=== PATIENT | female | born 1960 | race African-American/Black ===

== ENCOUNTER 2024-08-04 08:01 | Emergency (ER) | payer MEDICARE, MEDICAID, SELFPAY ==
[2024-08-04 08:17] VITALS: BP 139/83; PULSE 67; RESP 18; TEMP 36.8; O2SAT 97; BMI 27.8
[2024-08-04] MEDS: Acetaminophen 325 MG TABLET 975 MG PO (08:28)
--- NOTE | 2024-08-04 09:19 | ED.GENADULT ---
HPI - General Adult General Chief complaint: Upper Respiratory Symptoms Stated complaint: headache, throat pain Time Seen by Provider: 08/04/24 08:54 Source: patient and RN notes reviewed Mode of arrival: ambulatory Limitations: no limitations History of Present Illness ED Provider: Latricia Devi PA-C [facility] narrative: This is a 63-year-old female, with a history of hypertension, who presents emergency department with complaints of headaches, productive cough with yellow-colored sputum, sore throat for the last 2 months. Patient states that she has been using vgbi-ptv-hvpvnat Tylenol which has provided her with minimal relief. She called her primary care physician who is unable to see her until January. She also states that she takes amlodipine 5 mg as well as hydrochlorothiazide/lisinopril for her hypertension, and states that she is running low on her amlodipine. She denies any fevers, chills, chest pain, shortness of breath, abdominal pain, nausea, vomiting or diarrhea. Denies history of COPD. She is a nonsmoker. No other complaints or concerns at this time. MD complaint: Cough Onset (ago): month(s) Relieving factors: none Exacerbating factors: none Associated symptoms: denies other symptoms Treatments prior to arrival: none Related Data Previous Rx's ?Medication ?Instructions ?Recorded amlodipine 5 mg tablet 5 mg PO DAILY 30 days #30 tabs 08/04/24 azithromycin 250 mg tablet See Rx Instructions PO .COMPLEX #6 08/04/24 tabs Allergies Allergy/AdvReac Type Severity Reaction Status Date / Time No Known Allergies Allergy Unverified 08/04/24 08:19 Review of Systems Review of Systems: Yes all other systems are reviewed and are negative Constitutional: Constitutional: Reports as per [facility] Past Medical History Attestation statement: The following information was validated with the patient. Social History Social History Advance Directives: No Advance Directives Information Provided: No Physical Exam ED Vital Signs: Vital Signs - 24 hr 08/04/24 08:17 Temperature 98.2 F Pulse Rate 67 Respiratory Rate 18 Blood Pressure 139/83 Pulse Oximetry 97 Oxygen Delivery Method Room Air BMI result Body Mass Index 27.8 Const General: cooperative, comfortable and no acute distress Orientation/consciousness: patient oriented x3 Limitations: no limitations HENMT Head: Yes normal to inspection, Yes normocephalic and Yes atraumatic Ears: hearing grossly normal bilaterally General nose exam: Normal external nose present Face and sinus: Yes normal facial exam Mouth: Normal oral and palatal mucosa present, oropharynx normal and moist mucous membranes Throat: Yes posterior oropharynx normal Eyes General: appearance normal, both eyes and all related structures Eyelids: Yes eyelids normal Conjunctivae: conjunctivae normal Sclerae: sclerae normal Pupils: Equal, round and reactive pupils present EOM: EOMs intact bilaterally Neck Neck: Yes normal visual inspection, Yes full ROM and Yes no lymphadenopathy Lymphatic: no lymphadenopathy noted Chest Chest palpation & inspection: normal inspection of the chest Resp Effort & Inspection: normal respiratory effort and able to speak in complete sentences Auscultation: clear to auscultation bilaterally, no crackles, no rales, no rhonchi and no wheezes Cardio Rate: regular rate Rhythm: regular rhythm Heart sounds: S1 normal heart sound present and S2 normal heart sound present GI Inspection: Yes normal to inspection Skin General skin exam: no rashes or lesions noted Trauma: no lacerations or abrasions Wounds: no wounds Neuro General: patient oriented x3 and moves all extremities Cranial nerves: Yes Equal, round and reactive pupils present Extrem General: Yes normal to inspection Right upper extremity: normal to inspection Left upper extremity: normal to inspection Right lower extremity: normal to inspection Left lower extremity: normal to inspection Medications Administered Discontinued Medications Generic Name Dose Route Start Last Admin Trade Name Freq PRN Reason Stop Dose Admin Acetaminophen 975 mg 08/04/24 08:25 08/04/24 08:28 Acetaminophen 325 Mg Tablet PO 08/04/24 08:26 975 mg ONCE ONE Administration Medical Decision Making Medical Decision Making [facility] Narrative: This is a 63-year-old Frisian-speaking female who presents emergency department with complaints of productive cough with yellow-colored sputum, sore throat, headaches for the last 2 months. On arrival, vital signs within normal limits. She is nontoxic appearing speaking full sentences. She states that she has been taking paln-lnb-lhflgvd medications without any relief. She was contacted her primary care office and they are unable to see her until January. Differential diagnoses include bronchitis, URI, acute sinusitis, rhinosinusitis, allergic rhinitis. Been patient's symptoms have been ongoing for 2 months without any antibiotics, will trial antibiotics. Given strict return precautions. She understands and agrees with plan. Patient stable for discharge. Differential Diagnosis Differential Diagnoses: The differential diagnosis associated with the presentation includes See above Discharge Plan Discharge Clinical Impression: Upper respiratory infection, Medicine refill Patient Disposition: Home, Self-Care Instructions: Upper Respiratory Infection (ED) Additional Instructions: Take your antibiotic as prescribed until it is complete. Even if your symptoms start to resolve, you must complete the antibiotic course. Call to establish and follow up with a primary care provider. If you already have a primary care provider, please follow up with them. Llame para establecer y hacer un seguimiento con un proveedor de atenci?n primaria. Si ya tiene un proveedor de atenci?n primaria, golden un seguimiento con ?l. [place] el antibi?efrain seg?n lo prescrito hasta completarlo. Aunque los s?ntomas empiecen a mejorar, debe completar el tratamiento antibi?efrain. Prescriptions: New azithromycin 250 mg tablet See Rx Instructions .ROUTE .COMPLEX Qty: 6 0RF Rx Instructions: For 250 mg dose pack: take 500 mg today (day 1), then 250 mg for 4 days (days 2-5) amlodipine 5 mg tablet 5 mg PO DAILY 30 Days Qty: 30 0RF Print Language: Frisian
[2024-08-04 10:11] VITALS: BP 139/83; PULSE 67; RESP 18; TEMP 36.8; O2SAT 97
[2024-08-04 10:13] LABS: Influenza A PCR NEGATIVE (Negative); Influenza B PCR NEGATIVE (Negative); Resp Syncy Virus RNA Qual PCR NEGATIVE (Negative); SARS COV2 PCR INHOUSE NEGATIVE (Negative)
== END 2024-08-04 10:12 | disposition home or self-care (01) ==
PROVIDERS: Physician Assistant Medical; Emergency Provider Emergency Medicine; PCP Internal Medicine
DX: J06.9 Acute upper respiratory infection, unspecified (principal); J02.9 Acute pharyngitis, unspecified; Z03.818 Encounter for observation for suspected exposure to other biological agents ruled out; R05.9 Cough, unspecified; Z76.0 Encounter for issue of repeat prescription; I10 Essential (primary) hypertension
CPT/HCPCS: 0241U; 99283; 99284

== ENCOUNTER 2024-09-09 09:20 | Emergency (ER) | payer MEDICARE, SELFPAY ==
--- NOTE | ~2024-09-09 | XR_ITS ---
EXAMINATION: XR CHEST CLINICAL INFORMATION: Cough for 3 weeks COMPARISON: None available. TECHNIQUE: 2 views of the chest were obtained. FINDINGS: The lungs are symmetrically adequately expanded. A smooth opacity noted in the right paracardiac region at the lung bases on the PA view is felt to represent prominent paracardiac fat pad. Somewhat similar finding is seen on the previous x-rays of 2019. Otherwise there is no evidence of focal consolidation. No evidence of pulmonary edema, pleural effusions or pneumothorax. Regional skeleton is intact. Multilevel mild degenerative changes in the spine. Visualized upper abdomen is unremarkable. XR/XR chest 2V IMPRESSION: No convincing radiographic evidence of pneumonia. No acute pulmonary process. Electronically signed by: Artie Mark MD 09/09/2024 10:03 AM EDT RP
[2024-09-09 09:29] VITALS: BP 136/80; PULSE 72; RESP 18; TEMP 36.5; O2SAT 99; BMI 27.8
--- NOTE | 2024-09-09 09:47 | ED.URI ---
HPI - URI/Sore Throat General Chief Complaint: Upper Respiratory Symptoms Stated Complaint: sbcrn-kjowfswo-isnoaygf-urinary problems Time Seen by Provider: 09/09/24 09:37 Source: patient Mode of arrival: ambulatory Limitations: no limitations History of Present Illness HPI Narrative: Patient is a 64-year-old female who presents emergency department for evaluation, she reports over the past 3 weeks she has been experiencing an intermittently productive cough with yellow phlegm, body aches, intermittent headache that alleviates with Tylenol varying location. She denies fevers, chills, dizziness, lightheadedness, neck pain, neck stiffness, chest pain, shortness of breath, difficulty breathing, nausea, vomiting, abdominal pain, sore throat, numbness or tingling of the extremities. She also expresses concern that her urine is darker than usual without dysuria, frequency/urgency/hesitancy. When asked she states that she is consuming plenty of water, on further evaluation it seems she is primarily drinking tea's. Additionally, she states that she recently moved here from [facility] ago a few months back, she is waiting to establish care with a new primary care doctor appointment has been scheduled for January of 2025, she has 2 tablets left of each individual antihypertensive medication and is requesting a refill; amlodipine 5 mg 1 tablet daily, and lisinopril-HCTZ 20-25 mg 1 tablet daily. Related Data Previous Rx's ?Medication ?Instructions ?Recorded amlodipine 5 mg tablet 5 mg PO DAILY 30 days #30 tabs 08/04/24 azithromycin 250 mg tablet See Rx Instructions PO .COMPLEX #6 08/04/24 tabs amlodipine 5 mg tablet 5 mg PO DAILY #90 tabs 09/09/24 guaifenesin 200 mg/5 mL oral liquid 400 mg (10 mL) PO Q6H PRN cough 09/09/24 #118 mL lisinopril 20 1 tab PO DAILY #90 tabs 09/09/24 mg-hydrochlorothiazide 25 mg tablet Allergies Allergy/AdvReac Type Severity Reaction Status Date / Time No Known Allergies Allergy Verified 09/09/24 09:31 Review of Systems Review of Systems: Yes all other systems are reviewed and are negative PMFSH Past Medical History Attestation statement: The following information was validated with the patient. Source: old records reviewed Social History Social History Advance Directives: No Advance Directives Information Provided: Yes Do you have a plan to hurt others: No Plan Physical Exam Vital Signs: Vital Signs: Last Vital Signs Temp 97.7 F 09/09/24 09:29 Pulse 72 09/09/24 09:29 Resp 18 09/09/24 09:29 BP 136/80 09/09/24 09:29 Pulse Ox 99 09/09/24 09:29 O2 Del Method Room Air 09/09/24 09:29 BMI result Body Mass Index 27.8 Appearance: Alert.?Oriented to person, place and time. No acute distress.?Normal affect. Eyes: Pupils equal, round and reactive to light.? ENT: TM normal bilaterally. Pharynx normal.?? Neck: Normal inspection.? Neck supple.??No cervical adenopathy CVS: Heart sounds normal. Normal heart rate and rhythm.? Pulses normal.?? Respiratory: No respiratory distress.? Lung sounds clear to auscultation bilaterally?? Abdomen: Soft and non-tender. Normoactive bowel sounds. Skin: Skin warm and dry.? Normal skin color.? ? Extremities: No lower extremity edema.? Neuro: Moves all extremities spontaneously. Sensation intact bilaterally. No motor deficits. Ambulates with normal steady gait. Medical Decision Making Medical Decision Making MDM Narrative: Patient is a 64-year-old female with past medical history of hypertension, presenting for evaluation of upper respiratory symptoms and requesting medication refill. COVID-19/influenza testing negative. RSV testing is positive. Chest x-ray was obtained to evaluate for possible pneumonia, no evidence of consolidation or infiltrate. At this time history and physical exam not consistent with ACS she is not experiencing any chest pain, has no shortness of breath, unlikely pulmonary embolism, no evidence of DVT on examination and no personal history of VTE. Well-appearing, nontoxic, afebrile, no tachycardia or tachypnea/hypoxia. Speaking clear full sentences, ambulatory with steady gait. Symptoms at this time appear most consistent with bronchitis secondary to RSV. Discussed conservative treatment including rest, hydration, Tylenol/ibuprofen as needed for fever and body aches, saline nasal spray, humidifier, wrss-ndd-iaxzohv cold medication. She expressed personal concern for dark yellow appearing urine without infectious type of symptoms, I suspect this is due to dehydration and lack of free water intake, strongly about having urine checked for infection, not consistent with UTI. Advised to follow-up with primary care provider as needed, discussed reasons to return back to the emergency department. All questions were answered. Patient discharged home in stable condition. Regarding her hypertension, her blood pressure is well maintained today 136/80, I have sent prescription refills to her pharmacy Differential Diagnosis Differential Diagnoses: The differential diagnosis associated with the presentation includes ( See narrative above) Admission/Observation Consideration of admission/observation: Escalation of care including admission/observation considered ( see narrative above) Lab Data MDM Lab Attestation statement: I reviewed the patient's lab results. ( see narrative above) Labs: Lab Results 09/09/24 09/09/24 Range/Units 09:52 11:29 Urine Color Yellow Urine Appearance Clear Urine pH 7.0 (5.0-9.0) Ur Specific [place] 1.010 (1.005-1.025) Urine Protein Negative (Neg-Trace) mg/dL Urine Glucose (UA) Negative (Negative) mg/dL Urine Ketones Negative (Negative) mg/dL Urine Blood Negative (Negative) Urine Nitrite Negative (Negative) Ur Leukocyte Esterase Negative (Negative) Influenza Type A (PCR) NEGATIVE (Negative) Influenza Type B (PCR) NEGATIVE (Negative) RSV RNA Qual (PCR) POSITIVE A (Negative) SARS-CoV-2 RNA (RT-PCR) NEGATIVE (Negative) Independent Interpretation I performed an independent interpretation of an: Plain X-Ray (See narrative above) Radiology Impression Discussion of test interpretation with radiology: I have reviewed the radiologist's reading. Radiologist Impression: XR/XR chest 2V IMPRESSION: No convincing radiographic evidence of pneumonia. No acute pulmonary process. Prescription Management I considered prescription management with: Pain Medication ( acetaminophen/ibuprofen) and Other (See narrative above) Chronic Conditions Patient?s care impacted by: Hypertension Discharge Plan Discharge Clinical Impression: Respiratory syncytial virus (RSV), Hypertension Patient Disposition: Home, Self-Care Instructions: Upper Respiratory Infection (ED), Hypertension (ED) Additional Instructions: RSV is a common respiratory viruses that causes mild, cold-like symptoms. Typically symptoms resolve in 1-2 weeks. Be sure to get plenty of rest, stay well hydrated drinking plenty of fluids, eat small frequent meals. Alternating between Tylenol/ibuprofen can be used as needed for fever/pain. Saline nasal spray, humidifier may be helpful for nasal congestion. Most people are usually contagious for 3-8 days, however in some infants they may continue to spread the virus even after having symptoms for as long as 4 weeks. You may return to the emergency department with any new or worsening symptoms or concerns, be sure to monitor for shortness of breath, or difficulty breathing as discussed. Follow-up with your primary care provider as needed. Prescriptions: New amlodipine 5 mg tablet 5 mg PO DAILY Qty: 90 0RF lisinopril-hydrochlorothiazide 20-25 mg tablet 1 tab PO DAILY Qty: 90 0RF guaifenesin 200 mg/5 mL liquid 400 mg PO Q6H PRN (Reason: cough) Qty: 118 0RF No Action azithromycin 250 mg tablet See Rx Instructions .ROUTE .COMPLEX Qty: 6 0RF Rx Instructions: For 250 mg dose pack: take 500 mg today (day 1), then 250 mg for 4 days (days 2-5) amlodipine 5 mg tablet 5 mg PO DAILY 30 Days Qty: 30 0RF Referrals: Physician,Unknown J [Primary Care Provider] - Print Language: [place] Verdean
[2024-09-09 10:50] LABS: Influenza A PCR NEGATIVE (Negative); Influenza B PCR NEGATIVE (Negative); Resp Syncy Virus RNA Qual PCR POSITIVE (Negative); SARS COV2 PCR INHOUSE NEGATIVE (Negative)
[2024-09-09 11:38] LABS: Appearance Urine Clear; Color Urine Yellow; Glucose Urine UA Negative (Negative); Leukocyte Esterase Urine Negative (Negative); Nitrite Urine Negative (Negative); Urine Blood Negative (Negative); Urine Ketones Negative (Negative); Urine Protein Negative (Neg-Trace)
[2024-09-09 12:00] VITALS: BP 138/86; PULSE 53; RESP 18; TEMP 36.4; O2SAT 98
[2024-09-09 12:01] VITALS: BP 138/86; PULSE 53; RESP 18; TEMP 36.4; O2SAT 98
== END 2024-09-09 12:01 | disposition home or self-care (01) ==
PROVIDERS: Nurse Practitioner Family; Emergency Provider Emergency Medicine
DX: J22 Unspecified acute lower respiratory infection (principal); R05.9 Cough, unspecified; I10 Essential (primary) hypertension; M79.10 Myalgia, unspecified site; Z03.818 Encounter for observation for suspected exposure to other biological agents ruled out
CPT/HCPCS: 0241U; 71046; 81003; 99283

== ENCOUNTER 2024-10-16 06:03 | Emergency (ER) | payer MEDICARE, MEDICAID, SELFPAY ==
--- NOTE | 2024-10-16 | ECG_ITS ---
Test Reason : DIZZINESS Blood Pressure : / mmHG Vent. Rate : 072 BPM Atrial Rate : 072 BPM P-R Int : 132 ms QRS Dur : 070 ms QT Int : 386 ms P-R-T Axes : 022 -29 037 degrees QTc Int : 422 ms Normal sinus rhythm Low voltage QRS Cannot rule out Anterior infarct , age undetermined Abnormal ECG When compared to the previous EKG of No significant changes seen Referred By: Generic ED Physician Electronically Signed By:Brenden Loco
[2024-10-16 06:11] VITALS: BP 142/84; PULSE 84; RESP 18; TEMP 36.4; O2SAT 98; BMI 27.3
[2024-10-16 06:48] LABS: MANUAL DIFF FLAG NO
[2024-10-16 06:49] LABS: Basophils Absolute Auto 0.1 X10*3/uL (0.0-0.2); Basophils Percent Auto 0.7 % (0-2); Eosinophils Absolute Auto 0.4 X10*3/uL (0.0-0.4); Hematocrit 42.2 % (37.0-47.0); Hemoglobin 14.3 g/dl (12.0-16.0); Imm Gran Abs Auto 0.02 X10*3/uL (0.00-0.03); Imm Gran Pct Auto 0.3 % (0.0-0.4); Lymphocytes Absolute Auto 2.1 X10*3/uL (1.2-4.9); Lymphocytes Percent Auto 31.4 % (20-40); Mean Corpuscular HGB Conc 33.9 g/dl (31.0-35.0); Mean Corpuscular Volume 88.5 fL (80.0-98.0); Mean Platelet Volume 10.5 fL (9.4-12.3); Monocytes Absolute Auto 0.6 X10*3/uL (0.1-1.2); Monocytes Percent Auto 9.3 % (2-11); Neutrophils Absolute Auto 3.5 x10*3/uL (2.0-8.3); Neutrophils Percent Auto 52.3 % (45-73); Platelet Count 182 X10*3/uL (160-400); Red Blood Count 4.77 X10*6/uL (4.20-5.50); Red Cell Distribution Width 12.9 % (11.0-16.0); White Blood Count 6.7 X10*3/uL (4.8-10.8)
[2024-10-16 07:04] LABS: Alanine Aminotransferase 8 U/L (0-31); Albumin Level 4.1 g/dL (3.5-5.0); Alkaline Phosphatase 68 U/L (39-117); Anion Gap 14 (12-20); Aspartate Amino Transferase 19 U/L (5-31); Bilirubin Total 0.9 mg/dL (0.0-1.0); Blood Urea Nitrogen 16 mg/dL (9-16); Calcium 9.5 mg/dL (8.4-10.2); Carbon Dioxide 23 mmol/L (22-29); Chloride 105 mmol/L (96-108); Creatinine Clr Calc Pharmacy 68.3; Estimated Glomerular Filt Rate > 60; Glucose Random 110 mg/dL (60-115); Potassium 3.2 mmol/L (3.3-5.1); Sodium 139 mmol/L (135-145); Total Protein 7.2 g/dL (6.5-8.0)
[2024-10-16 07:26] LABS: Influenza A PCR NEGATIVE (Negative); Influenza B PCR NEGATIVE (Negative); Resp Syncy Virus RNA Qual PCR NEGATIVE (Negative); SARS COV2 PCR INHOUSE NEGATIVE (Negative)
[2024-10-16 07:40] LABS: IDNOW Serial# 08D9AD1C; Strep A Nucleic Acid Negative (Negative)
--- NOTE | 2024-10-16 09:07 | ED_ITS ---
HPI - General Adult General Chief complaint: General Medical Stated complaint: Throat pain Time Seen by Provider: 10/16/24 09:04 Source: patient Mode of arrival: ambulatory Limitations: no limitations History of Present Illness ED Provider: Yee AGUILERA narrative: Patient is a 64-year-old female with history of hypertension presenting to the emergency department with complaint of ongoing pain to the left side of her throat for the past 4 months. States began with URI symptoms which has since resolved, but the throat pain is persisting. States the area was swollen initially which has improved. Denies fevers. Denies difficulty swallowing or drooling. Denies difficulty opening and closing jaw. MD complaint: throat pain Onset (ago): month(s) Associated symptoms: denies other symptoms Treatments prior to arrival: NSAID Related Data Previous Rx's ?Medication ?Instructions ?Recorded amlodipine 5 mg tablet 5 mg PO DAILY 30 days #30 tabs 08/04/24 azithromycin 250 mg tablet See Rx Instructions PO .COMPLEX #6 08/04/24 tabs amlodipine 5 mg tablet 5 mg PO DAILY #90 tabs 09/09/24 guaifenesin 200 mg/5 mL oral liquid 400 mg (10 mL) PO Q6H PRN cough 09/09/24 #118 mL lisinopril 20 1 tab PO DAILY #90 tabs 09/09/24 mg-hydrochlorothiazide 25 mg tablet amlodipine 5 mg tablet 5 mg PO DAILY #30 tabs 10/16/24 cetirizine 10 mg tablet (All Day 10 mg PO DAILY #30 tabs 10/16/24 Allergy (cetirizine)) ibuprofen 600 mg tablet 600 mg PO Q6H PRN pain #30 tabs 10/16/24 lisinopril 20 1 tab PO DAILY #30 tabs 10/16/24 mg-hydrochlorothiazide 25 mg tablet Allergies Allergy/AdvReac Type Severity Reaction Status Date / Time No Known Allergies Allergy Verified 10/16/24 06:16 Review of Systems 2 Review of Systems: As per HPI Yes all other systems are reviewed and are negative Constitutional: Constitutional: Reports as per HPI [facility] Social History Social History Advance Directives: No Advance Directives Information Provided: Yes Do you have a plan to hurt others: No Plan Physical Exam ED Vital Signs: Vital Signs - 24 hr 10/16/24 06:11 10/16/24 10:46 Temperature 97.6 F 97.6 F Pulse Rate 84 61 Respiratory Rate 18 16 Blood Pressure 142/84 H 113/69 Pulse Oximetry 98 98 Oxygen Delivery Method Room Air Room Air BMI result Body Mass Index 27.3 Vital signs have been reviewed and appear to be correct. Blood pressure normal. Heart rate normal. Respiratory rate normal. Temperature normal. Oxygen saturation normal. Const General: cooperative, healthy appearing and no acute distress Orientation/consciousness: oriented to person, oriented to place, oriented to time and patient oriented x3 Limitations: no limitations [facility] Head: Yes normocephalic and Yes atraumatic Ears: external ears normal, TM's normal bilaterally and EAC's normal General nose exam: Normal external nose present Face and sinus: Yes normal facial exam and Yes face symmetric Mouth: Normal oral and palatal mucosa present, lip normal, tongue normal, oropharynx normal, moist mucous membranes, no drooling, no muffled voice, no trismus and No restricted motion Teeth and gingiva: dentition normal Throat: Yes tonsils normal, Yes uvula midline, No peritonsillar mass and No uvular edema Eyes Pupils: Equal, round and reactive pupils present Neck Neck: Yes normal visual inspection, Yes full ROM, Yes no lymphadenopathy, Yes trachea midline, Yes supple, No anterior neck swelling and No submandibular swelling Resp Effort & Inspection: normal respiratory effort and able to speak in complete sentences Auscultation: clear to auscultation bilaterally Cardio Rate: regular rate Rhythm: regular rhythm Heart sounds: S1 normal heart sound present and S2 normal heart sound present GI Palpation (GI): Soft to palpation and nontender Auscultation: normoactive bowel sounds General: Yes no CVA tenderness Back/Spine/Pelvis Back: no CVA tenderness Skin General skin exam: elasticity normal and turgor normal Neuro General: oriented to person, oriented to place, oriented to time, patient oriented x3, moves all extremities, no focal motor deficits and CN's II-XI intact bilaterally Cranial nerves: Yes Equal, round and reactive pupils present Cognition (Neuro): normal cognition Extrem General: Yes full ROM, Yes no pedal edema and Yes no calf tenderness Psych Mental Status: mental status grossly normal Affect: normal affect Thought process: Normal thought process present Medications Administered Discontinued Medications Generic Name Dose Route Start Last Admin Trade Name Freq PRN Reason Stop Dose Admin Potassium Chloride 40 meq 10/16/24 09:24 10/16/24 09:35 Potassium Chloride Packet 20 Meq Packet PO 10/16/24 09:25 40 meq ONCE ONE Administration Medical Decision Making Medical Decision Making [facility] Narrative: Patient is a 64-year-old female with history of hypertension presenting to the emergency department with complaint of ongoing pain to the left side of her throat for the past 4 months. On exam patient is awake, A+Ox3, VS WNL, afebrile, normal neurological exam without focal deficits, physical exam findings as above. Given reported symptoms and physical exam findings, initial differential includes strep pharyngitis, flu, Covid, mono. 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 Labs notable for mild hypokalemia, PO replacement ordered. Monospot negative. Patient is in no acute distress, no lymphadenopathy, managing secretions, no difficulty swallowing. Feel she is stable for discharge. Will refer to ENT for further evaluation of symptoms. Patient is requesting refill of BP medications, states does not see new PCP until January. Will send 30-day supply. Discussed with patient that she can follow up with the [facility] clinic for refills until PCP appt. Return precautions discussed. Patient verbalized understanding of and agreement with plan. In-person juvenile probation officer was utilized for all interactions, assessments, and discussions. Differential Diagnosis Differential Diagnoses: The differential diagnosis associated with the presentation includes As per [facility] Admission/Observation Consideration of admission/observation: Escalation of care including admission/observation considered as per [facility] Lab Data [facility] Lab Attestation statement: I reviewed the patient's lab results. as per [facility] 10/16/24 06:43 10/16/24 06:43 Labs: Lab Results 10/16/24 10/16/24 Range/Units 06:43 09:38 WBC 6.7 (4.8-10.8) X10*3/uL RBC 4.77 (4.20-5.50) X10*6/uL Hgb 14.3 (12.0-16.0) g/dl Hct 42.2 (37.0-47.0) % MCV 88.5 (80.0-98.0) fL MCH 30.0 (27.0-33.0) pg MCHC 33.9 (31.0-35.0) g/dl RDW 12.9 (11.0-16.0) % Plt Count 182 (160-400) X10*3/uL MPV 10.5 (9.4-12.3) fL Immature Gran % (Auto) 0.3 (0.0-0.4) % Neut % (Auto) 52.3 (45-73) % Lymph % (Auto) 31.4 (20-40) % Liberty % (Auto) 9.3 (2-11) % Eos % (Auto) 6.0 H (0-4) % Baso % (Auto) 0.7 (0-2) % Lymph # (Auto) 2.1 (1.2-4.9) X10*3/uL Liberty # (Auto) 0.6 (0.1-1.2) X10*3/uL Eos # (Auto) 0.4 (0.0-0.4) X10*3/uL Baso # (Auto) 0.1 (0.0-0.2) X10*3/uL Abs Immat Gran (auto) 0.02 (0.00-0.03) X10*3/uL Absolute Neuts (auto) 3.5 (2.0-8.3) x10*3/uL Absolute Nucleated RBC 0.000 (0.0-0.012) X10*3/uL Nucleated RBC % (auto) 0.0 (0.0-0.2) /100WBC Sodium 139 (135-145) mmol/L Potassium 3.2 L (3.3-5.1) mmol/L Chloride 105 (96-108) mmol/L Carbon Dioxide 23 (22-29) mmol/L Anion Gap 14 (12-20) BUN 16 (9-16) mg/dL Creatinine 0.80 (0.5-1.4) mg/dL Estim Creat Clear Calc 68.3 Estimated GFR > 60 Random Glucose 110 (60-115) mg/dL Calcium 9.5 (8.4-10.2) mg/dL Total Bilirubin 0.9 (0.0-1.0) mg/dL AST 19 (5-31) U/L ALT 8 (0-31) U/L Alkaline Phosphatase 68 (39-117) U/L Total Protein 7.2 (6.5-8.0) g/dL Albumin 4.1 (3.5-5.0) g/dL Monoscreen Negative (Negative) Influenza Type A (PCR) NEGATIVE (Negative) Influenza Type B (PCR) NEGATIVE (Negative) RSV RNA Qual (PCR) NEGATIVE (Negative) SARS-CoV-2 RNA (RT-PCR) NEGATIVE (Negative) S. pyogenes GrpA MARIA ISABEL Negative (Negative) External Record Review External record reviewed: Inpatient record, Office record and Outpatient record Prescription Management I considered prescription management with: Pain Medication and Other Discharge Plan Discharge Clinical Impression: Pain in throat, Hypokalemia, Hypertension Patient Disposition: Home, Self-Care Instructions: Pharyngitis (ED) Additional Instructions: You were evaluated in the emergency department today for a sore throat. Your strep, flu, COVID tests were negative. Your mono test was negative. Your labs were normal, with the exception of your potassium which was slightly low. You were given potassium in the emergency department. We recommend that you follow- up with an Ear, Nose, and Throat specialist. Call their office to schedule an appointment, they will not call you. Return to the emergency department if you develop difficulty managing your saliva, difficulty swallowing, difficulty opening and closing your jaw, fevers or any other concerning symptoms. Prescriptions: New amlodipine 5 mg tablet 5 mg PO DAILY Qty: 30 0RF lisinopril-hydrochlorothiazide 20-25 mg tablet 1 tab PO DAILY Qty: 30 0RF ibuprofen 600 mg tablet 600 mg PO Q6H PRN (Reason: pain) Qty: 30 0RF cetirizine [All Day Allergy (cetirizine)] 10 mg tablet 10 mg PO DAILY Qty: 30 0RF No Action azithromycin 250 mg tablet See Rx Instructions .ROUTE .COMPLEX Qty: 6 0RF Rx Instructions: For 250 mg dose pack: take 500 mg today (day 1), then 250 mg for 4 days (days 2-5) amlodipine 5 mg tablet 5 mg PO DAILY 30 Days Qty: 30 0RF amlodipine 5 mg tablet 5 mg PO DAILY Qty: 90 0RF lisinopril-hydrochlorothiazide 20-25 mg tablet 1 tab PO DAILY Qty: 90 0RF guaifenesin 200 mg/5 mL liquid 400 mg PO Q6H PRN (Reason: cough) Qty: 118 0RF Referrals: Orville Esqueda MD [Physician] - Print Language: Romansh
[2024-10-16] MEDS: Potassium Chloride Packet 20 MEQ PACKET 40 MEQ PO (09:35)
--- NOTE | 2024-10-16 09:38 | PC.NURSE ---
medication administered per provider order. labs obtained/sent to lab.
[2024-10-16 09:59] LABS: Monotest Negative (Negative)
[2024-10-16 10:46] VITALS: BP 113/69; PULSE 61; RESP 16; TEMP 36.4; O2SAT 98
[2024-10-16 11:32] VITALS: BP 113/69; PULSE 61; RESP 16; TEMP 36.4; O2SAT 98
== END 2024-10-16 11:33 | disposition home or self-care (01) ==
PROVIDERS: Registered Nurse Emergency; Emergency Provider Emergency Medicine
DX: R07.0 Pain in throat (principal); E87.6 Hypokalemia; R94.31 Abnormal electrocardiogram [ECG] [EKG]; I10 Essential (primary) hypertension; Z79.899 Other long term (current) drug therapy; Z03.818 Encounter for observation for suspected exposure to other biological agents ruled out
CPT/HCPCS: 0241U; 36415; 80053; 85025; 86308; 87651; 93005; 99283

== ENCOUNTER → 2024-10-16 06:21 | Outpatient (BNV) | payer MEDICARE, MEDICAID, SELFPAY | PROVIDERS: Emergency Provider Emergency Medicine; Visit Provider Internal Medicine Cardiovascular Disease | DX: R42 Dizziness and giddiness (principal); R94.31 Abnormal electrocardiogram [ECG] [EKG] | CPT/HCPCS: 93010 ==

== ENCOUNTER 2025-04-06 07:45 | Emergency (ER) | payer MEDICARE, MEDICAID, SELFPAY ==
[2025-04-06 07:48] VITALS: BP 166/96; PULSE 88; RESP 18; TEMP 36.8; O2SAT 98; BMI 27.5
--- NOTE | 2025-04-06 07:59 | PC.NURSE ---
completed triage assessment with Jayleen from interpreting services
[2025-04-06 08:00] VITALS: BP 136/81; PULSE 77; RESP 16; TEMP 35.8; O2SAT 98
[2025-04-06 08:20] LABS: IDNOW Serial# 6674DD1D; Strep A Nucleic Acid Negative (Negative)
--- NOTE | 2025-04-06 09:17 | ED_ITS ---
HPI - General Adult General Chief complaint: Upper Respiratory Symptoms Stated complaint: throat infection Time Seen by Provider: 04/06/25 09:13 Source: patient, family (patient's ) and mr teacher (all interactions with this patient were facilitated with an [facility] wastewater treatment supervisor) Mode of arrival: ambulatory Limitations: language barrier (all interactions with this patient were facilitated with an [facility] wastewater treatment supervisor) History of Present Illness ED Provider: Em Hendrickson PA-C HPI narrative: Patient is a 64 year old assigned female at with a history of HTN presenting to the emergency department today with tonsil pain / swelling and sinus congestion. Patient states that over the last 2 months she has had congestion that is worsening and she has been dealing with a sore throat for a year. Patient states that she has an appointment with an ENT specialist on 04/22/2025. Patient denies any dizziness, lightheadedness, abdominal pain, nausea, vomiting, fever, chills, blurry vision, double vision, loss of vision, chest pain, difficulty breathing, shortness of breath, back pain, night sweats, pain with urination, increased urinary frequency, increased urinary urgency, blood in her urine or stool, syncope or a near syncopal episode, recent trauma or falls, bowel incontinence, bladder incontinence, or any other complaints at this time. Related Data Previous Rx's ?Medication ?Instructions ?Recorded amlodipine 5 mg tablet 5 mg PO DAILY 30 days #30 tabs 08/04/24 azithromycin 250 mg tablet See Rx Instructions PO .COMPLEX #6 08/04/24 tabs amlodipine 5 mg tablet 5 mg PO DAILY #90 tabs 09/09/24 guaifenesin 200 mg/5 mL oral liquid 400 mg (10 mL) PO Q6H PRN cough 09/09/24 #118 mL lisinopril 20 1 tab PO DAILY #90 tabs 09/09/24 mg-hydrochlorothiazide 25 mg tablet amlodipine 5 mg tablet 5 mg PO DAILY #30 tabs 10/16/24 cetirizine 10 mg tablet (All Day 10 mg PO DAILY #30 tabs 10/16/24 Allergy (cetirizine)) ibuprofen 600 mg tablet 600 mg PO Q6H PRN pain #30 tabs 10/16/24 lisinopril 20 1 tab PO DAILY #30 tabs 10/16/24 mg-hydrochlorothiazide 25 mg tablet doxycycline hyclate 100 mg tablet 100 mg PO BID 7 days #14 tabs 04/06/25 Allergies Allergy/AdvReac Type Severity Reaction Status Date / Time No Known Allergies Allergy Verified 04/06/25 07:54 Review of Systems Constitutional: Constitutional: Reports no additional constitutional complaints, Denies chills, Denies fever(s) and Denies night sweats Eyes: Eyes: Reports no additional eye complaints, Denies blurry vision, Denies change in vision, Denies diplopia, Denies eye discharge, Denies loss of vision and Denies eye pain ENT: Denies dizziness and Reports nasal congestion Comments: sore throat Cardiovascular: Cardiovascular: Reports no additional cardiovascular complaints, Denies chest pain, Denies lightheadedness, Denies Loss of Consciousness and Denies dyspnea Respiratory: Respiratory: Reports no additional respiratory complaints and Denies dyspnea Gastrointestinal: Gastrointestinal: Reports no additional gastrointestinal complaints, Denies abdominal pain, Denies melena, Denies hematochezia, Denies change in bowel habits and Denies change in stool character Genitourinary: Genitourinary: Denies hematuria, Denies urinary frequency, Denies dysuria, Denies urinary incontinence, Denies urinary hesitancy and Denies urinary urgency Musculoskeletal: Musculoskeletal: Reports no additional musculoskeletal complaints, Denies numbness and Denies tingling Neurologic: Denies dizziness, Denies loss of vision, Denies numbness and De nies tingling Psychiatric: Psychiatric: Reports no additional psychiatric complaints Endocrine: Endocrine: Reports no additional endocrine complaints Hematologic/Lymphatic: Hematologic/Lymphatic: Reports no additional hematologic/lymphatic complaints Allergic/Immunologic: Allergic/Immunologic: Reports no additional allergic/immunologic complaints [facility] Past Medical History Attestation statement: The following information was validated with the patient. Source: old records reviewed and nursing notes reviewed Social History Social History Advance Directives: No Advance Directives Information Provided: No Do you have a plan to hurt others: No Plan Physical Exam ED Vital Signs: Vital Signs - 24 hr 04/06/25 07:48 04/06/25 08:00 04/06/25 10:04 Temperature 98.3 F 96.4 F L 96.4 F L Pulse Rate 88 77 77 Respiratory Rate 18 16 16 Blood Pressure 166/96 H 136/81 136/81 Pulse Oximetry 98 98 98 Oxygen Delivery Method Room Air Room Air Room Air BMI result Body Mass Index 27.5 Const General: cooperative, no acute distress, alert and awake Nutritional Appearance: well nourished Orientation/consciousness: patient oriented x3 HENMT Head: Yes normal to inspection and Yes atraumatic Ears: hearing grossly normal bilaterally and external ears normal General nose exam: Normal external nose present, no nasal discharge noted and no epistaxis Face and sinus: Yes normal facial exam, No abrasion and No laceration Mouth: Normal oral and palatal mucosa present, no drooling and no muffled voice Throat: Yes abnormal tonsil (bilateral swelling / erythema) Eyes General: appearance normal, both eyes and all related structures Periorbital: periorbital findings normal Eyelids: Yes eyelids normal Conjunctivae: conjunctivae normal Pupils: Equal, round and reactive pupils present EOM: EOMs intact bilaterally Neck Neck: Yes normal visual inspection, Yes full ROM and Yes no lymphadenopathy Resp Effort & Inspection: normal respiratory effort and able to speak in complete sentences Neuro General: patient oriented x3, moves all extremities and CN's II-XI intact bilaterally Cranial nerves: Yes Equal, round and reactive pupils present Cognition (Neuro): normal cognition Extrem General: Yes normal to inspection, Yes full ROM and Yes capillary refill normal Psych Appearance: grossly normal Mental Status: mental status grossly normal Affect: normal affect Attitude: cooperative Thought process: Normal thought process present Thought content: Normal thought content present Insight: Good insight present (Psych) Medications Administered Discontinued Medications Generic Name Dose Route Start Last Admin Trade Name Freq PRN Reason Stop Dose Admin Dexamethasone Sodium Phosphate 10 mg 04/06/25 09:55 04/06/25 10:04 Dexamethasone Sod Phosphate 10 Mg/Ml Vial PO 04/06/25 09:56 10 mg ONCE ONE Administration Medical Decision Making Medical Decision Making [facility] Narrative: Patient is a 64 year old assigned female at with a history of HTN presenting to the emergency department today with tonsil pain / swelling and sinus congestion. Patient's physical exam was as noted in the physical exam portion of this note. Patient's strep test was negative. Patient's clinical presentation is most consistent with pharyngitis and sinusitis. I explained my physical exam findings as well as all test results to the patient. I answered all questions asked by the patient. I stressed the importance of the patient taking her medication as directed (either prescribed or as the over the counter packaging recommends). I stressed the importance of the patient following up with her primary care provider and an ENT specialist. I stressed the importance of the patient returning to the emergency department immediately if her symptoms were to worsen or if she were to develop any dizziness, shortness of breath, difficulty breathing, chest pain, blurry vision, loss of vision, nausea, vomiting, abdominal pain, fever, chills, back pain, or any other complaints. Patient verbalized agreement and understanding with this treatment plan and discharge. Differential Diagnosis Differential Diagnoses: The differential diagnosis associated with the presentation includes Sinusitis Pharyngitis Admission/Observation Consideration of admission/observation: Escalation of care including admission/observation considered Patient would have been admitted to the hospital had her work up had any findings where hospital admission was appropriate and her clinical presentation warranted hospital admission. Lab Data [facility] Lab Attestation statement: I reviewed the patient's lab results. My interpretation of these studies and their corresponding values is that they are grossly normal. Labs: Lab Results 04/06/25 Range/Units 08:01 S. pyogenes GrpA MARIA ISABEL Negative (Negative) Independent Historian Clinical information obtained from an independent historian. History obtained from or confirmed by: Spouse (patient's provided additional history and confirmed the history provided by the patient. ) Prescription Management I considered prescription management with: Antibiotic (patient prescribed an antibiotic for sinusitis) Discharge Plan Discharge Clinical Impression: Sinusitis, Pharyngitis Patient Disposition: Home, Self-Care Instructions: Pharyngitis (ED), Sinusitis (ED) Additional Instructions: Follow up with your ENT as scheduled. Follow up with your primary care provider. Return to the emergency department immediately if your symptoms worsen or if you develop any dizziness, shortness of breath, difficulty breathing, chest pain, blurry vision, loss of vision, nausea, vomiting, abdominal pain, fever, chills, back pain, or any other complaints. Carmine?seguimiento?con hutchinson m?dico de atenci?n primaria. Acuda inmediatamente al servicio de urgencias si urmila s?ntomas empeoran o si presenta falta de aliento, dificultad para respirar, dolor tor?cico, mareos, aturdimiento, dolor de espalda, dolor abdominal, fiebre, escalofr?os o cualquier otro s?ntoma. Please see the information below about our Patient Portal. If you are not yet enrolled in the [facility] Patient Portal, you will receive an enrollment email invitation following your visit to any [facility] care setting. You may also self-enroll in the Patient Portal by visiting our website: [email or web address] The following information is required to access the Patient Portal: - Your [facility] Medical Record Number - Your personal home email address (must match what is in your electronic medical record, Registration staff can assist with this) - Name - Date of Capabilities of the Patient Portal: - Message some providers - View upcoming appointments - Access your health summary, medical history, and visit history - View current conditions and allergies - View procedure and lab results - View your medications, including guidelines, side effects, and precautions - Complete pre-appointment questionnaires requested by your provider - Ready summary reports of your office visits and procedures To access the Patient Portal Mobile Erlin, follow these directions: - Search [employer] in the Erlin Store or Pop[employer]it Store - Download the Erlin - Search for [facility] - Enter your login/password Portal del paciente Si usted no esta inscrito en el portal de pacientes de [facility], recibira bishop invitacion de inscripcion despues de hutchinson visita al [facility] o al [facility] via correo electronico. Tambien puede inscribirse voluntariamente en el portal de pacientes visitando nuestra pagina web: [email or web address] La siguiente informacion sera requerida para acceder al portal: - Hutchinson saurabh de historia medica de [facility] - Hutchinson direccion de correo electronico personal - Nombre - Fecha de nacimiento Capacidades: Las siguientes capacidades estan disponibles en el portal de pacientes: - Enviar mensajes a algunos doctores - Verificar proximas citas - Acceso a hutchinson historial de cma, registro medico e historial de visitas - Claudia las condiciones actuales y alergias claudia procedimientos y resultados del laboratorio - Claudia urmila medicamentos, incluyendo las pautas - Efectos secundarios y precauciones - Completar o llenar formularios / cuestionarios de - Citas solicitadas por hutchinson doctor - Leer los resumenes de reportes medicos de urmila visitas y procedimientos [place] acceder a la aplicacion movil: - Busque [employer] en la Erlin Store o [employer] Store - Descargue la aplicacion - [facility] - Ingrese hutchinson nombre de usuario / Contrasena Prescriptions: New doxycycline hyclate 100 mg tablet 100 mg PO BID 7 Days Qty: 14 0RF No Action azithromycin 250 mg tablet See Rx Instructions .ROUTE .COMPLEX Qty: 6 0RF Rx Instructions: For 250 mg dose pack: take 500 mg today (day 1), then 250 mg for 4 days (days 2-5) amlodipine 5 mg tablet 5 mg PO DAILY 30 Days Qty: 30 0RF amlodipine 5 mg tablet 5 mg PO DAILY Qty: 30 0RF lisinopril-hydrochlorothiazide 20-25 mg tablet 1 tab PO DAILY Qty: 30 0RF ibuprofen 600 mg tablet 600 mg PO Q6H PRN (Reason: pain) Qty: 30 0RF cetirizine [All Day Allergy (cetirizine)] 10 mg tablet 10 mg PO DAILY Qty: 30 0RF amlodipine 5 mg tablet 5 mg PO DAILY Qty: 90 0RF lisinopril-hydrochlorothiazide 20-25 mg tablet 1 tab PO DAILY Qty: 90 0RF guaifenesin 200 mg/5 mL liquid 400 mg PO Q6H PRN (Reason: cough) Qty: 118 0RF Referrals: Lyndsey Bell MD [Primary Care Provider] - Interventions: ED Discharge Assessment Last Done: 04/06/25 10:04 Discharge Date/Time: 04/06/25 10:05 Print Language: Cypriot
[2025-04-06 10:04] VITALS: BP 136/81; PULSE 77; RESP 16; TEMP 35.8; O2SAT 98
[2025-04-06] MEDS: dexAMETHasone sod phosphate 10 MG/ML VIAL PO (10:04)
== END 2025-04-06 10:05 | disposition home or self-care (01) ==
PROVIDERS: Emergency Provider Emergency Medicine; PCP Internal Medicine
DX: J02.9 Acute pharyngitis, unspecified (principal); J32.9 Chronic sinusitis, unspecified
CPT/HCPCS: 87651; 99283; J1100

== ENCOUNTER 2025-08-02 19:37 | Emergency (ER) | payer MEDICARE, MEDICAID, SELFPAY ==
--- NOTE | ~2025-08-02 | CT_ITS ---
CLINICAL HISTORY: LLQ abd pain, eval for diverticuiltis CT abdomen and pelvis with contrast Comparison: None provided Findings: No consolidation or effusion. Small calcified right hepatic granuloma is present. Couple subcentimeter right renal hypodensities are too small to characterize. 3 mm left proximal ureteral stone is present with mild left hydronephrosis. An additional 2 mm left lower renal stone is present. The gallbladder, pancreas, spleen, and bilateral adrenal glands appear within normal limits. There is no evidence of bowel obstruction. The appendix is not visualized. There is no pneumoperitoneum or ascites. The urinary bladder appears normal. 2.0 cm coarse calcification is seen in the right uterine wall, likely secondary to a degenerative fibroid. There is no adenopathy. Moderate to severe degenerative changes are seen in the spine. No acute osseous abnormality is identified. IMPRESSION: 1. 3 mm left proximal ureteral stone with mild left hydronephrosis. An additional 2 mm left lower renal stone is present. This document has been electronically signed by: Analilia Sierra on 08/03/2025 05:24:10
[2025-08-02 20:14] VITALS: BP 140/81; PULSE 79; RESP 20; TEMP 36.4; O2SAT 95; BMI 27.5
[2025-08-02 20:42] LABS: MANUAL DIFF FLAG NO
[2025-08-02 20:50] LABS: Hematocrit 40.9 % (37.0-47.0); Hemoglobin 14.1 g/dl (12.0-16.0); Imm Gran Abs Auto 0.04 X10*3/uL (0.00-0.03); Imm Gran Pct Auto 0.3 % (0.0-0.4); Lymphocytes Absolute Auto 1.2 X10*3/uL (1.2-4.9); Mean Corpuscular HGB Conc 34.5 g/dl (31.0-35.0); Mean Corpuscular Hemoglobin 29.4 pg (27.0-33.0); Mean Corpuscular Volume 85.4 fL (80.0-98.0); NRBC Abs Auto 0.000 X10*3/uL (0.0-0.012); NRBC Pct Auto 0.0 /100WBC (0.0-0.2); Platelet Count 193 X10*3/uL (160-400); Red Blood Count 4.79 X10*6/uL (4.20-5.50); White Blood Count 12.1 X10*3/uL (4.8-10.8)
[2025-08-02 20:59] LABS: Alanine Aminotransferase 19 U/L (0-31); Albumin Level 4.6 g/dL (3.5-5.0); Alkaline Phosphatase 106 U/L (39-117); Anion Gap 13 (12-20); Aspartate Amino Transferase 25 U/L (5-31); Blood Urea Nitrogen 13 mg/dL (9-16); Calcium 9.0 mg/dL (8.4-10.2); Carbon Dioxide 24 mmol/L (22-29); Chloride 108 mmol/L (96-108); Creatinine Clr Calc Pharmacy 77.1; Estimated Glomerular Filt Rate > 60; Lipase 10 U/L (8-78); Potassium 3.5 mmol/L (3.3-5.1); Sodium 141 mmol/L (135-145); Total Protein 7.9 g/dL (6.5-8.0)
--- OUTSIDE RECORDS SUMMARY | 2025-08-02 23:50 | XMS_ITS | Clinical Summary ---
Author Organization [facility] [address] [place] [address] [place] [phone] Phone Care Team Providers Care Hospital Cook Name Role Phone Lyndsey Bell MD Primary Care Provider [phone] Allergies Active Allergy Reactions Criticality Noted Date Comments Tramadol Nausea And Vomiting,Other Medium 03/10/2018 Racing heart Medications bosentan (TRACLEER) 125 mg tablet Take 1 tablet (125 mg total) by mouth 2 (two) times a day. Do not crush or chew. Active amLODIPine (NORVASC) 10 mg tablet Take 1 tablet (10 mg total) by mouth 1 (one) time each day. 90 each 1 03/14/2025 Active omeprazole (PriLOSEC) [address] capsule TAKE 1 CAPSULE BY MOUTH 1 TIME EACH DAY. DO NOT CRUSH OR CHEW. 90 capsule 3 05/06/2025 Active cholecalciferol (VITAMIN D-3) 25 mcg (1,000 unit) tablet Take 1 tablet (1,000 Units total) by mouth 1 (one) time each day. 90 tablet 1 05/16/2025 Active metFORMIN (GLUCOPHAGE) 500 mg tablet Take 1 tablet (500 mg total) by mouth 2 (two) times a day with meals. 180 tablet 1 05/16/2025 Active Active Problems Problem Noted Date Diagnosed Date Osteoarthritis of left knee 09/16/2017 Overview (10/22/2024): Depo-medrol injection 09/16/2017 Chronic back pain 01/18/2017 Vitamin D deficiency 04/29/2016 Hypertension 04/15/2016 Encounters Date Type Department Care Team Description 07/05/2025 Telephone Gastroenterology - [place] [address] [facility] [address] [place] [phone] Kam Vincent DO 06/17/2025 8:00 AM EDT Office Visit Adult Medicine [address] [phone] Lico Alfaro PA Primary hypertension (Primary Dx); Lower leg edema; Large tonsils 06/11/2025 2:30 PM EDT Anesthesia Event [facility] Endoscopy [address] [place] [phone] Tj Baker DO 06/11/2025 1:38 PM EDT - 06/11/2025 11:59 PM EDT Hospital Encounter [facility] Endoscopy [address] [place] [address] Kam Vincent DO Vermes, Rachie, CRNA Walsh, Michael, DO Esophagitis determined by biopsy Discharge Disposition: Home or Self Care 06/06/2025 Telephone Gastroenterology - [address] [facility] [address] [place] [address] Vero Thomas MA 06/05/2025 Telephone Gastroenterology - [address] [facility] [address] [phone] Vero Thomas MA 05/22/2025 10:00 AM EDT Treatment Outpatient Rehabilitation - [address] [phone] Timmy Quinones, PT Left knee pain, unspecified chronicity (Primary Dx) 05/20/2025 9:00 AM EDT Treatment Outpatient Rehabilitation - [address] [phone] Samantha Sandoval, [employer] Left knee pain, unspecified chronicity (Primary Dx) 05/15/2025 9:00 AM EDT Treatment Outpatient Rehabilitation [address] [phone] Elizabet Kumar, [employer] Left knee pain, unspecified chronicity (Primary Dx) 05/13/2025 9:00 AM EDT Treatment Outpatient [facility] - [address] [phone] Ammon Sykes, [employer] Left knee pain, unspecified chronicity (Primary Dx) 05/09/2025 9:00 AM EDT Treatment Outpatient [address] [phone] Samantha Sandoval, [employer] Left knee pain, unspecified chronicity (Primary Dx) 05/07/2025 8:59 AM EDT Anesthesia Event [facility] Endoscopy [address] [place] [phone] Nathan Delgado DO 05/07/2025 8:32 AM EDT - 05/07/2025 11:59 PM EDT Hospital Encounter [facility] Endoscopy [address] [place] [phone] Kam Vincent DO Mounsey, Sarah, CRNA Korobkov, Vitaliy, DO Abnormal barium swallow Discharge Disposition: Home or Self Care 05/06/2025 2:00 PM EDT Treatment Outpatient [facility] - [address] [phone] RegansamiraMadison lynnedy, [employer] Left knee pain, unspecified chronicity (Primary Dx) 05/03/2025 9:00 AM EDT Treatment Outpatient [facility] - [address] [phone] Ammon Sykes, [employer] Left knee pain, unspecified chronicity (Primary Dx) from Last 3 Months Immunizations Name Administration Dates Next Due Influenza trivalent, with pr eservative (Fluzone; Afluria) 6mo and older 11/01/2016 Tdap Tetanus diptheria acell ular pertussis (Boostrix; Adacel) 7yo and older 06/23/2018 Surgical History Surgery Date Site/Laterality Comments APPENDECTOMY PROCEDURE: HISTORICAL APPENDECTOMY SECTION PROCEDURE: HISTORICAL DELIVERY COLONOSCOPY 07/13/13 PROCEDURE: HISTORICAL COLONOSCOPY TOTAL KNEE ARTHROPLASTY Left ESOPHAGOGASTRODUODENOSCOPY Medical History Medical History Date Comments Hypertension 04/15/2016 DX:Hypertension Vitamin D deficiency 04/29/2016 DX:Vitamin D deficiency Chronic back pain 01/18/2017 DX:Chronic lisa k pain GERD (gastroesophageal reflux disease) Family History Medical History Relation Name Comments Heart attack Father HTN, Stroke /de ceased age 76 Diabetes Mother HTN Relation Name Status Comments Brother 1 Alive HTN Brother 2 Alive HTN Brother 3 Alive Brother 4 (Age 23) Unknown ca use Brother 5 (Age 59) UGIB Daughter 1 Alive Daughter 2 Alive Father (Age 76) HTN, [place] Mother Alive DM, HTN Social History Tobacco Use Types Packs/Day Years Used Date Smoking Tobacco: Never Passive Smoke Exposure: Never Smokeless Tobacco: Never Tobacco Cessation:Counseling Given: Not Answered Alcohol Use Standard Drinks/Week Comments No 0 (1 standard drink = 0.6 oz pur e alcohol) Interpersonal Safety Answer Date Record ed Physical Abuse 06/11/2025 Verbal Abuse 06/11/2025 Comments No Sex and Gender Information Value Date Recorded Sex Assigned at Female 02/15/2025 11:02 AM EDT Legal Sex Female 2:34 PM EST Gender Identity Female 02/15/2025 11:02 AM EDT Sexual Orientation Straight 02/15/2025 11 :02 AM EDT Obstetrics History Last Filed Vital Signs Vital Sign Reading Time Taken Comments Blood Pressure 120/72 06/17/2025 7:45 AM EDT Pulse 68 06/17/2025 7:45 AM EDT Temperature 36.2 C (97.1 F) 06/17/2025 7:45 AM EDT Respiratory Rate 12 06/17/2025 7:45 AM EDT Oxygen Saturation 98% 06/11/2025 3:02 PM EDT Inhaled Oxygen Concentration - - Weight 72.7 kg (160 lb 4.8 oz) 06/17/2025 7:45 A M EDT Height 162.6 cm (5' 4 ) 06/17/2025 7:45 AM EDT Body Mass Index 27.52 06/17/2025 7:45 AM EDT Plan of Treatment Upcoming Encounters Date Type Department Care Team (Late st Contact Info) Description 10/17/2025 8:00 AM EST Office Visit Adult Medicine [address] [phone] Lyndsey Bell MD [address] [place], [place] 12/12/2025 8:30 AM EST Office Visit Gastroenterology - [place] [address] [place] [phone] Kam Vincent DO [address] [place] [address] Health Maintenance Due Date Last Done Comments Cervical Cancer Screening: Pap Smear 1980 Pneumococcal Vaccine: 50+ Years (1 of 1 - PCV) 2009 Zoster Vaccines (1 of 2) 2009 Breast Cancer Screening 02/05/2020 02/04/2018, 01/28 Hepatitis C Screening 10/13/2022 Medicare Annual Wellness Visit 10/13/2022 Social Influencers of Health Screening 10/13/2022 Depression Screening 11/14/2024 COVID-19 Vaccine ( season) 2025 12/05/2021, 04/11/2021, 03/21/2021 Hypertension/CHF/CAD Annual BMP Blood Test 01/24/2026 01/24/2025, 01/15/2024, 06/17/2018 Falls Risk Assessment 06/11/2026 06/11/2025 Osteoporosis Screening (Bone Density Screening) 01/28/2027 01/28/2017 DTaP,Tdap,and Td Vaccines (2 - Td or Tdap) 06/23/2028 06/23/2018 Cholesterol Screening (Lipid Panel) 01/24/2030 01/24/2025, 11/27/2016 Colorectal Cancer Screening: Colonoscopy 05/01/2031 05/01/2024, 05/01/2024, 05/01/2024, Additional history exists RSV Immunization Adult Patients (1 - 1-dose 75+ series) 2034 Influenza Vaccine Completed 07/23/2025, 11/01/2016 HIB Vaccines Aged Out No longer eligi ble based on patient's age to complete this topic HPV Vaccines Aged Out No longer eligi ble based on patient's age to complete this topic Hepatitis A Vaccines Aged Out No long er eligible based on patient's age to complete this topic Hepatitis B Vaccines Aged Out No long er eligible based on patient's age to complete this topic IPV Vaccines Aged Out No longer eligi ble based on patient's age to complete this topic MMR Vaccines Aged Out No longer eligi ble based on patient's age to complete this topic Meningococcal ACWY Vaccine Aged Out N o longer eligible based on patient's age to complete this topic Meningococcal B Vaccine Aged Out No l onger eligible based on patient's age to complete this topic RSV Immunization Patients Under 20 months Aged Out No longer eligible based on patient's age to complete this topic Varicella Vaccines Aged Out No longer eligible based on patient's age to complete this topic Medical Devices Implanted Type Area Hard Tile Setter Apprentice Device Identifier Shelf Expiration Date Model / Serial / Lot Implants Implants Left: Knee Procedures Procedure Name Priority Date/Time Associated Diagnosis Comments EGD Routine 06/11/2025 2:41 PM EDT Esophagitis determined by biopsy TISSUE EXAM Routine 06/11/2025 2:39 PM EDT Esophagitis determined by biopsy EGD Routine 05/07/2025 9:10 AM EDT Abnormal barium swallow TISSUE EXAM Routine 05/07/2025 9:05 AM EDT Abnormal barium swallow COMPREHENSIVE METABOLIC PANEL Routine 01/24/2025 10:51 AM EDT Primary hypertension LIPID PANEL WITH REFLEX TO DIRECT LDL Routine 01/24/2025 10:51 AM EDT Primary hypertension EXTERNAL COLONOSCOPY REPORT Routine 05/01/2024 9:16 AM EDT SCR MAMMO BI INCL CAD Routine 02/04/2018 10:59 AM EDT Encounter for screening mammogram for malignant neoplasm of breast DXA BONE DENSITY STUDY 1+ SITS AXIAL SKEL Routine 01/28/2017 4:21 PM EDT Low back pain Other chronic pain Encounter for screening for osteoporosis from Last 3 Months or Most Recently Relevant to Health Maintenance Results * EGD Anesthesia - MAC; [facility] ENDOSCOPY (06/11/2025 2:41 PM EDT) Only the most recent of2 resultswithin the time period is included. Anatomical Region Laterality Modality Endoscopy 06/11/2025 2:23 PM EDT Impressions 06/11/2025 2:42 PM EDT - Z-line irregular, 36 cm from the incisors. Biopsied. WATS-3D brush biopsy specimens obtained. - Normal stomach. - Normal examined duodenum. Recommendation: - Discharge patient to home. - Resume previous diet. - Continue present medications. - Await pathology results. - Decrease PPI to once daily. Complete resolution of the esophagitis. 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 Estimated blood loss: Minimal. Estimated Blood Loss: Estimated blood loss was minimal. Procedure: Pre-Anesthesia Assessment: - - Prior to the procedure, a History and Physical was performed, and patient medications and allergies were reviewed. The patient is competent. The risks and benefits of the procedure and the sedation options and risks were discussed with the patient. All questions were answered and informed consent was obtained. Patient identification and proposed procedure were verified by the physician, the nurse, the anesthesiologist, the photographers' model and the dental laboratory technician apprentice in the pre-procedure area in the endoscopy suite. Mental Status Examination: alert and oriented. Airway Examination: normal oropharyngeal airway and neck mobility. Respiratory Examination: clear to auscultation. CV Examination: normal. Prophylactic Antibiotics: The patient does not require prophylactic antibiotics. Prior Anticoagulants: The patient has taken no anticoagulant or antiplatelet agents. ASA Grade Assessment: II - A patient with mild systemic disease. After reviewing the risks and benefits, the patient was deemed in satisfactory condition to undergo the procedure. The anesthesia plan was to use monitored anesthesia care (MAC). Immediately prior to administration of medications, the patient was re-assessed for adequacy to receive sedatives. The heart rate, respiratory rate, oxygen saturations, blood pressure, adequacy of pulmonary ventilation, and response to care were monitored throughout the procedure. The physical status of the patient was re-assessed after the procedure. After obtaining informed consent, the endoscope was passed under direct vision. Throughout the procedure, the patient's blood pressure, pulse, and oxygen saturations were monitored continuously.The Endoscope was introduced through the mouth, and advanced to the second part of duodenum. The upper GI endoscopy was accomplished without difficulty. The patient tolerated the procedure well. Findings: The Z-line was irregular and was found 36 cm from the incisors. Biopsies were taken with a cold forceps for histology. Wide Area Transepithelial Sampling (WATS-3D Sciota Biopsy) was performed for histology and samples sent for Computer-Assisted 3-Dimensional analysis. Estimated blood loss was minimal. The stomach was normal. The examined duodenum was normal. Procedure Code(s): --- Professional --- 83339, Esophagogastroduodenoscopy, flexible, transoral; with biopsy, single or multiple Diagnosis Code(s): --- Professional --- K22.89, Other specified disease of esophagus R12, Heartburn CPT copyright 2021 [employer]. All rights reserved. The codes documented in this report are preliminary and upon airplane technician review may be revised to meet current compliance requirements. KAM Vincent DO 06/11/2025 2:42:39 PM This report has been signed electronically.Kam Vincent DO Number of Addenda: 0 Note Initiated On: 06/11/2025 2:23 PM Scope In: Scope Out: Endoscopy Department at [facility] - [address] [place] [phone] Procedure Note Kam Vincent DO - 06/11/2025 [facility] GI Patient Name: Jessa Schulte Procedure Date: 06/11/2025 2:23 PM Date of : 1960 Age: 64 Gender: Female Note Status: Finalized Attending MD: Kam Vincent DO, [id number] Procedure Date No Time: 06/11/2025 Procedure: Upper GI endoscopy Indications: Heartburn, 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 Estimated blood loss: Minimal. Estimated Blood Loss: Estimated blood loss was minimal. Procedure: Pre-Anesthesia Assessment: - - Prior to the procedure, a History and Physicalwas performed, and patient medications and allergieswere reviewed. The patient is competent. The risks and benefits of the procedure and the sedation optionsand risks were discussed with the patient. Allquestions were answered and informed consent was obtained. Patient identification and proposed procedure were verified by the physician, the nurse, the anesthesiologist, the photographers' model and thetechnician in the pre-procedure area in the endoscopy suite. Mental Status Examination: alert and oriented.Airway Examination: normal oropharyngeal airway and neck mobility. Respiratory Examination: clear to auscultation. CV Examination: normal. Prophylactic Antibiotics: The patient does not requireprophylactic antibiotics. Prior Anticoagulants: The patient has taken no anticoagulant or antiplatelet agents. ASA Grade Assessment: II - A patient with mild systemic disease. After reviewing the risks and benefits,the patient was deemed in satisfactory condition to undergo the procedure. The anesthesia plan was touse monitored anesthesia care (MAC). Immediately priorto administration of medications, the patient was re-assessed for adequacy to receive sedatives. The heart rate, respiratory rate, oxygen saturations, blood pressure, adequacy of pulmonary ventilation,and response to care were monitored throughout the procedure. The physical status of the patient was re-assessed after the procedure. After obtaining informed consent, the endoscope was passed under direct vision. Throughout theprocedure, the patient's blood pressure, pulse, and oxygen saturations were monitored continuously.TheEndoscope was introduced through the mouth, and advanced tothe second part of duodenum. The upper GI endoscopy was accomplished without difficulty. The patienttolerated the procedure well. Findings: The Z-line was irregular and was found 36 cm fromthe incisors. Biopsies were taken with a cold forcepsfor histology. Wide Area Transepithelial Sampling(WATS-3D Sciota Biopsy) was performed for histology andsamples sent for Computer-Assisted 3-Dimensional analysis. Estimated blood loss was minimal. The stomach was normal. The examined duodenum was normal. Procedure Code(s): --- Professional --- 84494, Esophagogastroduodenoscopy, flexible, transoral; with biopsy, single or multiple Diagnosis Code(s): --- Professional --- K22.89, Other specified disease of esophagus R12, Heartburn CPT copyright 2020 [employer]. All rights reserved. The codes documented in this report are preliminary and upon airplane technician reviewmay be revised to meet current compliance requirements. KAM Vincent DO 06/11/2025 2:42:39 PM This report has been signed electronically.Kam Vincent DO Number of Addenda: 0 Note Initiated On: 06/11/2025 2:23 PM Scope In: Scope Out: Endoscopy Department at [facility] - [address] [place] [phone] IMPRESSION: - Z-line irregular, 36 cm from the incisors. Biopsied. WATS-3D brush biopsy specimens obtained. - Normal stomach. - Normal examined duodenum. Recommendation: - Discharge patient to home. - Resume previous diet. - Continue present medications. - Await pathology results. - Decrease PPI to once daily. Complete resolutionof the esophagitis. us Kam Vincent DO GI~PROCEDURE ORDERABLES Final Re sult * Tissue exam (06/11/2025 2:39 PM EDT) Only the most recent of2 resultswithin the time period is included. Final Diagnosis Gastroesophageal junction, biopsy: - Esophageal squamous mucosa with occasional intraepithelial eosinophils (maximum of two intraepithelial eosinophils in a high-power field) and reactive epithelial changes including focal basilar hyperplasia. - Gastric cardiac/fundic type mucosa with patchy chronic inflammation. - No intestinal metaplasia and no dysplasia identified. 06/12/2025 12:[address] PM [facility] [facility] Gross Description A. Esophagus, ge junction bx's: Labeled esophagus GE junction . Received in formalin are two irregular pink-white mucosal tissue fragments, each measuring approximately 0.2 cm in greatest dimension, which are wrapped in paper and submitted in toto in one cassette, two pieces, multiple levels on one slide. ELI 06/12/2025 12:47 PM EDT [facility] Disclaimer Unless otherwise specified, all tissue is 10% NB formalin fixed and paraffin embedded. 06/12/2025 12:47 PM EDT [facility] Tissue Esophageal structure / Unknown 06/11/2025 2:39 PM EDT 06/11/2025 3:19 PM EDT us Kam Vincent DO LAB PATHOLOGY ORDERABLES Final R esult [facility] [address] [place] [address], [place] [phone] * (ABNORMAL) Lipid panel with reflex to direct LDL (01/24/2025 10:51 AM EDT) Cholesterol 212(H) 0 - 200 mg/dL LAB CHEMISTRY METHOD 01/24/2025 2:43 PM EDT [facility] Triglycerides 92 0 - 150 mg/dL LAB CHEMISTRY METHOD 01/24/2025 2:43 PM T [facility] HDL 65 >=40 mg/dL LAB CHEMISTRY METHOD 01/24/2025 2:43 PM EDT [facility] LDL Calculated 129(H) 0 - 100 mg/dL LAB CHEMISTRY METHOD 01/24/2025 2:43 PM T [facility] VLDL Cholesterol Carlton 18.4 mg/dL LAB CHEMISTRY METHOD 01/24/2025 2:43 PM EDT [facility] Non HDL Chol. (LDL+VLDL) 147(H) <145 mg/dL LAB CHEMISTRY METHOD 01/24/2025 2:43 PM EDT [facility] Chol/HDL Ratio 3.3 0.0 - 4.4 LAB CHEMISTRY METHOD 01/24/2025 2:43 PM [facility] Blood Venous blood specimen / Unknown Venipuncture / Unknown 01/24/2025 10:51 AM EDT 01/24/2025 10:51 AM EDT us Lyndsey Bell MD LAB BLOOD ORDERABLES Final Resul t [facility] [address] [place] [address], * (ABNORMAL) Comprehensive metabolic panel (01/24/2025 10:51 AM EDT) Sodium 139 133 - 145 mmol/L LAB CHEMISTRY METHOD 01/24/2025 2:43 PM EDT [facility] Potassium 3.9 3.5 - 5.5 mmol/L LAB CHEMISTRY METHOD 01/24/2025 2:43 PM [facility] Chloride 102 96 - 110 mmol/L LAB CHEMISTRY METHOD 01/24/2025 2:43 PM [facility] CO2 27 21 - 32 mmol/L LAB CHEMISTRY METHOD 01/24/2025 2:43 PM [facility] Anion Gap 10 3 - 11 LAB CHEMISTRY METHOD 01/24/2025 2:43 PM [facility] Glucose 110(H) 70 - 100 mg/dL LAB CHEMISTRY METHOD 01/24/2025 2:43 PM [facility] BUN 13 5 - 25 mg/dL LAB CHEMISTRY METHOD 01/24/2025 2:43 PM [facility] Creatinine 0.73 0.50 - 1.10 mg/dL LAB CHEMISTRY METHOD 01/24/2025 2:43 PM [facility] eGFR 91 >=60 mL/min/1. 73m2 LAB CHEMISTRY METHOD 01/24/2025 2:43 PM [facility] Comment:Calculation based on the Chronic Kidney Disease Epidemiology Collaboration (CKD-EPI) equation refit without adjustment for race. BUN/Creatinine Ratio 17.8 LAB CHEMISTRY METHOD 01/24/2025 2:43 PM [facility] Calcium 9.5 8.5 - 10.5 mg/dL LAB CHEMISTRY METHOD 01/24/2025 2:43 PM EDT [facility] AST (SGOT) 23 10 - 42 unit/L LAB CHEMISTRY METHOD 01/24/2025 2:43 PM EDT [facility] ALT (SGPT) 29 10 - 60 unit/L LAB CHEMISTRY METHOD 01/24/2025 2:43 PM EDT [facility] Alkaline Phosphatase 74 42 - 121 unit/L LAB CHEMISTRY METHOD 01/24/2025 2:43 PM EDT [facility] Total Protein 7.9 6.0 - 8.0 g/dL LAB CHEMISTRY METHOD 01/24/2025 2:43 PM EDT [facility] Albumin 4.1 3.2 - 5.0 g/dL LAB CHEMISTRY METHOD 01/24/2025 2:43 PM EDT [facility] Total Bilirubin 1.0 0.0 - 1.4 mg/dL LAB CHEMISTRY METHOD 01/24/2025 2:43 PM EDT [facility] Blood Venous blood specimen / Unknown Venipuncture / Unknown 01/24/2025 10:51 AM EDT 01/24/2025 10:51 AM EDT Lyndsey Bell MD LAB BLOOD ORDERABLES Final Resul t [facility] [address] [place] [address], * External Colonoscopy Report (05/01/2024 9:16 AM EDT) Anatomical Region Laterality Modality Endoscopy us Historical Provider GI~PROCEDURE ORDERABLES F inal Result * SCR MAMMO BI INCL CAD (02/04/2018 10:59 AM EDT) Anatomical Region Laterality Modality Radiographic Taylor ging 01/28/2017 4:30 PM EDT Narrative 02/06/2018 10:55 AM EDT This is a summary report. The complete report is available in the patient's medical record. If you cannot access the medical record, please contact the sending organization for a detailed fax or copy. Full field digital screening mammography, reviewed with CAD and compared to previous. The breasts are composed of fatty and fibroglandular tissue. No suspicious mass, architectural distortion or suspicious calcifications are identified. IMPRESSION: : No mammographic evidence of malignancy. BIRADS 1-Negative; N. 5 year breast cancer risk assessment 1.0 % Lifetime breast cancer risk assessment 5.9 % Breast cancer risk category Low (<15%) Procedure Note Cori Bach MD - 11/02/2022 This is a summary report. The complete report is available in thepatient's medical record. If you cannot access the medical record, pleasecontact the sending organization for a detailed fax or copy. Full field digital screening mammography, reviewed with CAD and comparedto previous. The breasts are composed of fatty and fibroglandular tissue.No suspicious mass, architectural distortion or suspicious calcificationsare identified. IMPRESSION: : No mammographic evidence of malignancy. BIRADS 1-Negative; N. 5 year breast cancer risk assessment 1.0 % Lifetime breast cancer risk assessment 5.9 % Breast cancer risk category Low (<15%) Sebastien Arciniega MD IMG XR PROCEDURES Final Result * DXA BONE DENSITY STUDY 1+ SITS AXIAL SKEL (01/28/2017 4:21 PM EDT) Anatomical Region Laterality Modality Bone Densitometr y 01/18/2017 4:13 PM EST Narrative 01/29/2017 10:37 AM EDT DEXA SCAN: Lumbar Spine T-score is 3.4. (SD relative to 20-29 y/o adult) Z-score is 4.6. (SD relative to age matched peers) This is considered normal by WHO criteria. Left Hip T-score is 1.5. Z-score is 2.3. This is considered normal by WHO criteria. Comparison exam(s): None. Impression: Normal by WHO criteria. [facility] Department of Internal Medicine recommends using National Osteoporosis Foundation (NOF) guidelines in treatment decisions related to osteoporosis. NOF guidelines suggest considering treatment for postmenopausal women and men aged 50 or older presenting with the following: History of hip or vertebral fracture. T-score = -2.5 (DXA) at the femoral neck, total hip, or spine, after appropriate evaluation to exclude secondary causes. Low bone mass (T-score between -1.0 and -2.5 at the femoral neck or spine) AND a 10-year probability of a hip fracture = 3% OR a 10-year probability of a major osteoporosis-related fracture = 20% based on the [place]-adapted WHO algorithm Please note that all treatment decisions require clinical judgment and consideration of individual patient factors, including patient preferences, co-morbidities, previous drug use, risk factors not captured in the FRAX model (e.g., frailty, falls, vitamin D deficiency, increased bone turnover, interval significant decline in bone density) and possible under- or over-estimation of fracture risk by FRAX. Optional alternative screening schedule based on carmela Berumen., [facility] December 02, 2011 for patients with osteopenia (based on hip BMD T-score) is as follows: * advanced osteopenia (T scores -2.00 to -2.49), BMD testing every year * moderate osteopenia (T scores -1.50 to -1.99), BMD testing every 5 years mild osteopenia or normal BMD (T scores -1.50 and higher), BMD testing every 15 years Procedure Note Bradly Hugo MD - 12/16/2023 DEXA SCAN: Lumbar Spine T-score is 3.4. (SD relative to 20-29 y/o adult) Z-score is 4.6. (SD relative to age matched peers) This is considered normal by WHO criteria. Left Hip T-score is 1.5. Z-score is 2.3. This is considered normal by WHO criteria. Comparison exam(s): None. Impression: Normal by WHO criteria. The [facility] Department of Internal Medicine recommendsusing National Osteoporosis Foundation (NOF) guidelines in treatment decisions related toosteoporosis. NOF guidelines suggest considering treatment for postmenopausal women and menaged 50 or older presenting with the following: History of hip or vertebral fracture. T-score = -2.5 (DXA) at the femoral neck, total hip, or spine, afterappropriate evaluation to exclude secondary causes. Low bone mass (T-score between -1.0 and -2.5 at the femoral neck or spine)AND a 10-year probability of a hip fracture = 3% OR a 10-year probability of a majorosteoporosis-related fracture = 20% based on the [place]-adapted WHO algorithm Please note that all treatment decisions require clinical judgment andconsideration of individual patient factors, including patient preferences, co- morbidities,previous drug use, risk factors not captured in the FRAX model (e.g., frailty, falls, vitaminD deficiency, increased bone turnover, interval significant decline in bone density) andpossible under- or over-estimation of fracture risk by FRAX. Optional alternative screening schedule based on luis miguel Berumen al., [facility] for patients with osteopenia (based on hip BMD T-score) is as follows: * advanced osteopenia (T scores -2.00 to -2.49), BMD testing every year * moderate osteopenia (T scores -1.50 to -1.99), BMD testing every 5years mild osteopenia or normal BMD (T scores -1.50 and higher), BMD testingevery 15 years Sebastien Arciniega MD [facility]XA PROCEDURES Ade l Result from Last 3 Months or Most Recently Relevant to Health Maintenance Insurance MEDICARE [place]ICAID [place] [facility] Care Teams Hospital Cook Relationship Specialty Start Date End Date Lyndsey Bell MD [address] [place] [id number] PCP - General Internal Medicine 01/24/25
--- OUTSIDE RECORDS SUMMARY | 2025-08-02 23:51 | XMS_ITS | Encounter Summary ---
Author Organization [facility] Address [address] [place] [address] Care Team Providers Care Computer Operations Supervisor Name Role Phone Sebastien Arciniega MD Primary Care Provider Un available Birgit Urbina MD Primary Care Provider Marifer Bassett MD Primary Care Provider Unavail able Cinthia Sanches MD Primary Care Provider [phone] Lyndsey Bell MD Primary Care Provider [phone] Encounter Details Date Type Department Care Team Description 09/06/2018 Telephone [facility] [address] [place] [address] Danette Carlson MD [address] [place] [id number] Social History Tobacco Use Types Packs/Day Years Used Date Smoking Tobacco: Never Smokeless Tobacco: Never Alcohol Use Standard Drinks/Week Comments No 0 (1 standard drink = 0.6 oz pur e alcohol) Sex Assigned at Date Recorded Not on file documented as of this encounter Plan of Treatment Not on file documented as of this encounter Visit Diagnoses Not on filedocumented in this encounter Care Teams Computer Operations Supervisor Relationship Specialty Start Date End Date Sebastien Arciniega MD PCP - General Internal Medicine 03/17/16 Birgit Urbina MD PCP - General Internal Medicine 02/04/20 02/04/20 Marifer Muñoz MD PCP - General Internal Medicine 02/05/20 01/03/22 Cinthia Sanches MD PCP - General Internal Medicine 01/04/22 07/02/24 Lyndsey Bell MD [address] [place] [id number] PCP - General Internal Medicine 07/03/24 documented as of this encounter
--- OUTSIDE RECORDS SUMMARY | 2025-08-02 23:51 | XMS_ITS | Encounter Summary ---
Author Organization [facility] Address [address] [place] [address] Care Team Providers Care Unit Secretary Name Role Phone Sebastien Arciniega MD Primary Care Provider Un available Birgit Urbina MD Primary Care Provider Marifer Bassett MD Primary Care Provider Unavail able Cinthia Sanches MD Primary Care Provider [phone] Lyndsey Bell MD Primary Care Provider [phone] Encounter Details Date Type Department Care Team Description 11/17/2016 Transfer Records Medical Records [address] [place] [id number] Abstract, Provider Social History Tobacco Use Types Packs/Day Years Used Date Smoking Tobacco: Never Alcohol Use Standard Drinks/Week Comments No 0 (1 standard drink = 0.6 oz pur e alcohol) Sex Assigned at Date Recorded Not on file documented as of this encounter Plan of Treatment Not on file documented as of this encounter Visit Diagnoses Not on filedocumented in this encounter Care Teams Unit Secretary Relationship Specialty Start Date End Date Sebastien Arciniega MD PCP - General Internal Medicine 03/17/16 Birgit Urbina MD PCP - General Internal Medicine 02/04/20 02/04/20 Marifer Muñoz MD PCP - General Internal Medicine 02/05/20 01/03/22 Cinthia Sanches MD PCP - General Internal Medicine 01/04/22 07/02/24 Lyndsey Bell MD [address] [place] [address] [id number] PCP - General Internal Medicine 07/03/24 documented as of this encounter
--- OUTSIDE RECORDS SUMMARY | 2025-08-02 23:51 | XMS_ITS | Encounter Summary ---
Author Organization [facility] Address [address] [place] [address] Care Team Providers Care Director Of Corporate Communications Name Role Phone Sebastien Arciniega MD Primary Care Provider Un available Birgit Urbina MD Primary Care Provider Marifer Bassett MD Primary Care Provider Unavail able Cinthia Sanches MD Primary Care Provider [phone] Lyndsey Bell MD Primary Care Provider [phone] Encounter Details Date Type Department Care Team Description 03/21/2019 Transfer Records Medical Records [address] [place] [id number] Abstract, Provider Social History Tobacco Use Types [...] on filedocumented in this encounter Care Teams Director Of Corporate Communications Relationship Specialty Start Date End Date Sebastien Arciniega MD PCP - General Internal Medicine 03/17/16 Birgit Urbina MD PCP - General Internal Medicine 02/04/20 02/04/20 Marifer Muñoz MD PCP - General Internal Medicine 02/05/20 01/03/22 Cinthia Sanches MD PCP - General Internal Medicine 01/04/22 07/02/24 Lyndsey Bell MD [address] [place] [address] [id number] PCP - General Internal Medicine 07/03/24 documented as of this encounter
--- OUTSIDE RECORDS SUMMARY | 2025-08-02 23:51 | XMS_ITS | Encounter Summary ---
Author Organization [facility] Address [address] [place] [address] Care Team Providers Care Gusset Stitcher Name Role Phone Sebastien Arciniega MD Primary Care Provider Un available Birgit Urbina MD Primary Care Provider Marifer Bassett MD Primary Care Provider Unavail able Cinthia Sanches MD Primary Care Provider [phone] Lyndsey Bell MD Primary Care Provider [phone] Reason for Visit * Reason Onset Date Comments Provider Call Back 05/21/2019 Urinary Frequency/Urgency/Burning 05/21/2019 Encounter Details Date Type Department Care Team Description 05/21/[address] [facility] [address] [place] [address] Lico Alfaro PA-C [address] [place] [address] Provider Call Back; Urinary Frequency/Urgency/Burn ing Social History Tobacco Use Types Packs/Day Years Used Date Smoking Tobacco: Never Smokeless Tobacco: Never Alcohol Use Standard Drinks/Week Comments No 0 (1 standard drink = 0.6 oz pur e alcohol) Sex Assigned at Date Recorded Not on file documented as of this encounter Miscellaneous Notes * Telephone Encounter - Eloisa Tomlin R.N. - 05/21/2019 4:26 PM EDT Pt has had dysuria and frequency for the past 3 - 5 days Pt has no chest pain or SOB, denies any N/V/D or fever, is able to tolerate PO with no difficulty, Pt has no abd or flank pain, C/O burning with urination,voiding small amounts frequently and has urgency, denies any blood in the urine.pt denies any recent trauma or surgery Pt has appointment 05/23 at 4:00 * Telephone Encounter - Linda Harris - 05/21/2019 4:24 PM EDT Patient is returning phone call -- # [phone] (home) Needs a kosovan interp * Telephone Encounter - Garry Bardales R.N - 05/21/2019 12:22 PM EDT Pt called left voice message to return call. * Telephone Encounter - Eileen Garcia M.A. - 05/21/2019 11:26 AM EDT Please triage UTI sx, pt asking for rx refill was treated with Macrobid 04/30/19, last Urine culture04/26/19 * Telephone Encounter - Cheryle Abbott - 05/21/2019 11:19 AM EDT Caller requesting call back from provider: Is the caller the patient? YES If caller is not the patient, what is the callers name? N/A Callers relationship to patient? N/A If person calling is not the patient themselves, is there a verbal release in FYI or permanent comments for this person: NO Reason for call back: Patient want a refill request UTI, I did explain to her she has to be seen. She said she seen kael on 05/11/19 Same reason just need a refill Caller offered to speak with the nurse for assistance: YES Response: Patient offered to speak with nurse for assistance and patient agreed. Message forwarded to nurse. documented in this encounter Plan of Treatment Not on file documented as of this encounter Visit Diagnoses Not on filedocumented in this encounter Care Teams Gusset Stitcher Relationship Specialty Start Date End Date Sebastien Arciniega MD PCP - General Internal Medicine 03/17/16 Birgit Urbina MD PCP - General Internal Medicine 02/04/20 02/04/20 Marifer Muñoz MD PCP - General Internal Medicine 02/05/20 01/03/22 Cinthia Sanches MD PCP - General Internal Medicine 01/04/22 07/02/24 Lyndsey Bell MD [address] [place] [id number] PCP - General Internal Medicine 07/03/24 documented as of this encounter
--- OUTSIDE RECORDS SUMMARY | 2025-08-02 23:51 | XMS_ITS | Encounter Summary ---
Author Organization [facility] Address [address] [place] [address] Care Team Providers Care Slasher Name Role Phone Sebastien Arciniega MD Primary Care Provider Un available Birgit Urbina MD Primary Care Provider Marifer Bassett MD Primary Care Provider Unavail able Cnithia Sanches MD Primary Care Provider [phone] Lyndsey Bell MD Primary Care Provider [phone] Encounter Details Date Type Department Care Team Description 04/27/2016 Transfer Records Medical Records [address] [place] [id number] Abstract, Provider Social History Tobacco Use Types Packs/Day Years Used Date Smoking Tobacco: Never Alcohol Use Standard Drinks/Week Comments No 0 (1 standard drink = 0.6 oz pur e alcohol) Sex Assigned at Date Recorded Not on file documented as of this encounter Nursing Notes * 04/27/2016 12:00 PM EDT >> VISHNU Del Rio Apr 27, 2016 3:53 PM Transfer records received from [facility] sent to Lavinia Gary RN conveyor maintenance mechanic. documented in this encounter Plan of Treatment Not on file documented as of this encounter Visit Diagnoses Not on filedocumented in this encounter Care Teams Slasher Relationship Specialty Start Date End Date Sebastien Arciniega MD PCP - General Internal Medicine 03/17/16 Birgit Urbina MD PCP - General Internal Medicine 02/04/20 02/04/20 Marifer Muñoz MD PCP - General Internal Medicine 02/05/20 01/03/22 Cinthia Sanches MD PCP - General Internal Medicine 01/04/22 07/02/24 Lyndsey Bell MD [address] [place] [id number] PCP - General Internal Medicine 07/03/24 documented as of this encounter
--- OUTSIDE RECORDS SUMMARY | 2025-08-02 23:51 | XMS_ITS | Encounter Summary ---
Author Organization [facility] Address [address] [place] [address] Care Team Providers Care Infusion Rn Name Role Phone Sebastien Arciniega MD Primary Care Provider Un available Birgit Urbina MD Primary Care Provider Marifer Bassett MD Primary Care Provider Unavail able Cinthia Sanches MD Primary Care Provider [phone] Lyndsey Bell MD Primary Care Provider [phone] Encounter Details Date Type Department Care Team Description 01/02/2019 Iron Erector Report Medical Records [address] [place] [address] Linda Velazco, PA-C [address] [place] [address] Social History Tobacco Use Types Packs/Day Years [...] on filedocumented in this encounter Care Teams Infusion Rn Relationship Specialty Start Date End Date Sebastien Arciniega MD PCP - General Internal Medicine 03/17/16 Birgit Urbina MD PCP - General Internal Medicine 02/04/20 02/04/20 Marifer Muñoz MD PCP - General Internal Medicine 02/05/20 01/03/22 Cinthia Sanches MD PCP - General Internal Medicine 01/04/22 07/02/24 Lyndsey Bell MD [address] [place] [id number] PCP - General Internal Medicine 07/03/24 documented as of this encounter
--- OUTSIDE RECORDS SUMMARY | 2025-08-02 23:51 | XMS_ITS | Encounter Summary ---
Author Organization [facility] Address [address] [place] [address] Care Team Providers Care Golf Stud Riveter Name Role Phone Marifer Muñoz MD Primary Care Provider Unavail able Cinthia Sanches MD Primary Care Provider [phone] Lyndsey Bell MD Primary Care Provider [phone] Encounter Details Date Type Department Care Team Description 05/12/2020 Grinder Machine Setter Report Medical Records [address] [place] [address] Linda Velazco PA-C [address] [place] [address] Social History Tobacco Use Types Packs/Day Years [...] on filedocumented in this encounter Care Teams Golf Stud Riveter Relationship Specialty Start Date End Date Marifer Muñoz MD PCP - General Internal Medicine 02/05/20 01/03/22 Cinthia Sanches MD PCP - General Internal Medicine 01/04/22 07/02/24 Lyndsey Bell MD [address] [place] [id number] PCP - General Internal Medicine 07/03/24 documented as of this encounter
[2025-08-03 01:08] VITALS: BP 123/71; PULSE 58; RESP 14; TEMP 36.5; O2SAT 96
[2025-08-03] MEDS: Lactated Ringers 1,000 ML 999 ML IV (01:09)
[2025-08-03] MEDS: iohexoL 350 MG/ML 100 ML INFUS..BTL 85 ML IV (01:46)
--- NOTE | 2025-08-03 02:26 | ED.ABDPAIN ---
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 Elaine Romano HPI narrative: 64-year-old female with a history of hypertension and GERD presenting with left flank pain radiating into her left abdomen ongoing for the last 6 days or so. Describes a crampy abdominal pain that starts in her left mid abdomen and radiates to her back. Pain has been intermittent since it started but more persistent today. Denies associated hematuria or dysuria. No hematochezia or melena. Had a bowel movement this morning that was reportedly normal. Denies vomiting but admits to feeling slightly nauseous at times. No relief with Tylenol. Has been taking omeprazole for GERD which was diagnosed a couple of months ago. No reported fever. Denies chest pain, cough or cold-type symptoms. Related Data Previous Rx's ?Medication ?Instructions ?Recorded amlodipine 5 mg tablet 5 mg PO DAILY 30 days #30 tabs 08/04/24 azithromycin 250 mg tablet See Rx Instructions PO .COMPLEX #6 08/04/24 tabs amlodipine 5 mg tablet 5 mg PO DAILY #90 tabs 09/09/24 guaifenesin 200 mg/5 mL oral liquid 400 mg (10 mL) PO Q6H PRN cough 09/09/24 #118 mL lisinopril 20 1 tab PO DAILY #90 tabs 09/09/24 mg-hydrochlorothiazide 25 mg tablet amlodipine 5 mg tablet 5 mg PO DAILY #30 tabs 10/16/24 cetirizine 10 mg tablet (All Day 10 mg PO DAILY #30 tabs 10/16/24 Allergy (cetirizine)) ibuprofen 600 mg tablet 600 mg PO Q6H PRN pain #30 tabs 10/16/24 lisinopril 20 1 tab PO DAILY #30 tabs 10/16/24 mg-hydrochlorothiazide 25 mg tablet doxycycline hyclate 100 mg tablet 100 mg PO BID 7 days #14 tabs 04/06/25 hydrocodone 5 mg-acetaminophen 325 1 tab PO Q6H PRN severe pain 08/03/25 mg tablet (scale score 7-10) #10 tabs ondansetron 4 mg disintegrating 4 mg PO Q8H PRN nausea and 08/03/25 tablet vomiting #10 tabs tamsulosin 0.4 mg capsule (Flomax) 0.4 mg PO BEDTIME #7 caps 08/03/25 Allergies Allergy/AdvReac Type Severity Reaction Status Date / Time No Known Allergies Allergy Verified 08/02/25 20:16 Review of Systems Review of Systems As per HPI, full review of systems performed and negative but for the above mentioned pertinent positives and negatives. [facility] Social History Social History Advance Directives: No Advance Directives Information Provided: Yes Physical Exam ED Exam Exam: GENERAL: Ill-Appearing, appears uncomfortable. SKIN: Normal skin color for ethnicity, warm, dry, no rashes noted. HEENT: Normocephalic, atraumatic, no stridor, dry mucous membranes, dentition intact, EOMI, PERRLA. NECK: Soft, supple, full ROM, midline structures nontender, no step-offs, no deformities, no lymphadenopathy. CHEST: Heart regular tachycardia, no murmurs, symmetric chest rise and fall. PULMONARY: Clear to auscultation bilaterally, diminished at the bases, no labored breathing, no wheezes/rhales/rhonchi. ABDOMINAL: Soft, nondistended, left upper quadrant tenderness to palpation with voluntary guarding, no left flank tenderness to percussion, hyperactive bowel sounds in all quadrants. : Deferred. MUSCULOSKELETAL: Normal tone, full range of motion, no deformities, no peripheral edema. NEURO: Alert and oriented x3, CN II through XII intact, equal strength and sensation bilateral upper and lower extremities, no focal neurologic deficits. PSYCHIATRIC: Flat affect, fluid speech, good eye contact and appropriate demeanor. Vital Signs: Vital Signs - 24 hr 08/02/25 20:14 08/03/25 01:08 08/03/25 04:45 Temperature 97.6 F 97.7 F 97.8 F Pulse Rate 79 58 58 Respiratory Rate 20 14 16 Blood Pressure 140/81 H 123/71 114/64 Pulse Oximetry 95 96 97 Oxygen Delivery Method Room Air Room Air Room Air BMI result Body Mass Index 27.5 Medical Decision Making Medical Decision Making MDM Narrative: Patient presented today with a chief complaint of flank pain. Differential diagnosis is certainly broad and includes but is not limited to kidney stone, infection such as pyelonephritis, vascular pathology, among many others. Patient feeling improved after Tylenol and Zofran. Resting comfortably at this time. Awaiting CT results. I see a left hydroureteronephrosis with an obstructing stone. Awaiting urinalysis. She is not currently septic. Normal vital signs with only a mildly elevated white blood cell count of 12.1. CT does show evidence of an obstructing ureteral stone in the left proximal ureter as well as a distal stone. Patient's pain is well controlled after Tylenol. She is resting comfortably and has been sleeping. She has no evidence of urinary tract infection at this point. I suspect her elevated white blood cell count is secondary to vomiting. We will start her on tamsulosin, have her follow up with Urology and discussed strict return precautions. Using shared decision making, plan for discharge home to follow-up with primary care and/or specialist. Patient understands and agrees with plan for discharge. Discharged home in stable condition. Differential Diagnosis Differential Diagnoses: The differential diagnosis associated with the presentation includes (As above) Admission/Observation Consideration of admission/observation: Escalation of care including admission/observation considered Lab Data MDM Lab Attestation statement: I reviewed the patient's lab results. 08/02/25 20:38 08/02/25 20:38 Labs: Lab Results 08/02/25 08/03/25 Range/Units 20:38 02:23 WBC 12.1 H (4.8-10.8) X10*3/uL RBC 4.79 (4.20-5.50) X10*6/uL Hgb 14.1 (12.0-16.0) g/dl Hct 40.9 (37.0-47.0) % MCV 85.4 (80.0-98.0) fL MCH 29.4 (27.0-33.0) pg MCHC 34.5 (31.0-35.0) g/dl RDW 13.2 (11.0-16.0) % Plt Count 193 (160-400) X10*3/uL MPV 10.7 (9.4-12.3) fL Immature Gran % (Auto) 0.3 (0.0-0.4) % Neut % (Auto) 81.9 H (45-73) % Lymph % (Auto) 9.9 L (20-40) % Bowman % (Auto) 4.3 (2-11) % Eos % (Auto) 3.1 (0-4) % Baso % (Auto) 0.5 (0-2) % Lymph # (Auto) 1.2 (1.2-4.9) X10*3/uL Bowman # (Auto) 0.5 (0.1-1.2) X10*3/uL Eos # (Auto) 0.4 (0.0-0.4) X10*3/uL Baso # (Auto) 0.1 (0.0-0.2) X10*3/uL Abs Immat Gran (auto) 0.04 H (0.00-0.03) X10*3/uL Absolute Neuts (auto) 9.9 H (2.0-8.3) x10*3/uL Absolute Nucleated RBC 0.000 (0.0-0.012) X10*3/uL Nucleated RBC % (auto) 0.0 (0.0-0.2) /100WBC Sodium 141 (135-145) mmol/L Potassium 3.5 (3.3-5.1) mmol/L Chloride 108 (96-108) mmol/L Carbon Dioxide 24 (22-29) mmol/L Anion Gap 13 (12-20) BUN 13 (9-16) mg/dL Creatinine 0.71 (0.5-1.4) mg/dL Estim Creat Clear Calc 77.1 Estimated GFR > 60 Random Glucose 144 H (60-115) mg/dL Calcium 9.0 (8.4-10.2) mg/dL Total Bilirubin 0.5 (0.0-1.0) mg/dL Direct Bilirubin 0.2 (0.0-0.5) mg/dL AST 25 (5-31) U/L ALT 19 (0-31) U/L Alkaline Phosphatase 106 (39-117) U/L Total Protein 7.9 (6.5-8.0) g/dL Albumin 4.6 (3.5-5.0) g/dL Lipase 10 (8-78) U/L Urine Color Yellow Urine Appearance Clear Urine pH 7.0 (5.0-9.0) Ur Specific [place] 1.010 (1.005-1.025) Urine Protein Negative (Neg-Trace) mg/dL Urine Glucose (UA) Negative (Negative) mg/dL Urine Ketones Trace (Negative) mg/dL Urine Blood Small (1+) H (Negative) Urine Nitrite Negative (Negative) Ur Leukocyte Esterase Trace H (Negative) Urine RBC 6-10 H (0-2) /HPF Urine WBC 0-5 (0-5) /HPF Ur Squamous Epith Cells 0-2 (0-2) /HPF Urine Bacteria None Seen (None Seen) Hyaline Casts 0-2 (0-2) /LPF Independent Interpretation I performed an independent interpretation of an: CT Scan Interpretation: Left hydroureteronephrosis with obstructing stone in the proximal ureter Radiology Impression Discussion of test interpretation with radiology: I have reviewed the radiologist's reading. Independent Historian Clinical information obtained from an independent historian. History obtained from or confirmed by: Other (Son) External Record Review External record reviewed: Inpatient record Prescription Management I considered prescription management with: Pain Medication Chronic Conditions Patient?s care impacted by: Hypertension Medications Administered Discontinued Medications Generic Name Dose Route Start Last Admin Trade Name Freq PRN Reason Stop Dose Admin Lactated Ringer's 1,000 mls @ 999 mls/hr 08/03/25 00:47 08/03/25 02:21 Lr IV 08/03/25 01:47 Infused .Q1H1M ONE Infusion Acetaminophen 1,000 mg in 100 mls @ 400 mls/hr 08/03/25 00:47 08/03/25 02:21 Ofirmev IV 08/03/25 01:01 Infused ONCE ONE Infusion Iohexol 85 ml 08/03/25 01:46 08/03/25 01:46 Iohexol 350 Mg/Ml 100 Ml Infus..Btl IV 08/03/25 01:47 85 ml ONCE ONE Administration Ondansetron HCl 4 mg 08/03/25 00:47 08/03/25 01:09 Ondansetron Hcl 4 Mg/2 Ml Vial IVPUSH 08/03/25 00:48 4 mg ONCE ONE Administration Discharge Plan Discharge Clinical Impression: Acute unilateral obstructive uropathy, Ureterolithiasis, Acute abdominal pain in left flank Patient Disposition: Home, Self-Care Instructions: Ureteral Stones (ED) Additional Instructions: Return to the hospital with any new or worsening symptoms including: Worsening pain despite medication, fevers greater than 100?, inability to urinate, vomiting, any new symptom that concerns you. Call 911 with any medical emergency. [facility] [place] be contacting you within 2 business?days after being discharged from the Emergency?Department.? During this?phone call, they will inform you when your follow up appointment will be scheduled. If you have not received a call from [facility] after 2 business?days, please call the?office at [phone]. Prescriptions: New ondansetron 4 mg tablet,disintegrating 4 mg PO Q8H PRN (Reason: nausea and vomiting) Qty: 10 0RF tamsulosin [Flomax] 0.4 mg capsule 0.4 mg PO BEDTIME Qty: 7 0RF hydrocodone-acetaminophen 5-325 mg tablet 1 tab PO Q6H PRN (Reason: severe pain (scale score 7-10)) Qty: 10 0RF Rx Instructions: Partial Fill upon patient request. No Action azithromycin 250 mg tablet See Rx Instructions .ROUTE .COMPLEX Qty: 6 0RF Rx Instructions: For 250 mg dose pack: take 500 mg today (day 1), then 250 mg for 4 days (days 2-5) amlodipine 5 mg tablet 5 mg PO DAILY 30 Days Qty: 30 0RF amlodipine 5 mg tablet 5 mg PO DAILY Qty: 30 0RF lisinopril-hydrochlorothiazide 20-25 mg tablet 1 tab PO DAILY Qty: 30 0RF ibuprofen 600 mg tablet 600 mg PO Q6H PRN (Reason: pain) Qty: 30 0RF cetirizine [All Day Allergy (cetirizine)] 10 mg tablet 10 mg PO DAILY Qty: 30 0RF amlodipine 5 mg tablet 5 mg PO DAILY Qty: 90 0RF lisinopril-hydrochlorothiazide 20-25 mg tablet 1 tab PO DAILY Qty: 90 0RF guaifenesin 200 mg/5 mL liquid 400 mg PO Q6H PRN (Reason: cough) Qty: 118 0RF doxycycline hyclate 100 mg tablet 100 mg PO BID 7 Days Qty: 14 0RF Referrals: [facility] [Provider Group, Urology] Clinical Impression: Acute unilateral obstructive uropathy Print Language: Cambodian
[2025-08-03 02:31] LABS: Appearance Urine Clear; Glucose Urine UA Negative (Negative); PH 7.0 (5.0-9.0); Specific Gravity - Urine 1.010 (1.005-1.025); UMIC TRIGGER UACC YES
[2025-08-03 04:45] VITALS: BP 114/64; PULSE 58; RESP 16; TEMP 36.6; O2SAT 97
[2025-08-03 07:07] VITALS: BP 121/67; PULSE 62; RESP 16; TEMP 36.6
[2025-08-03 07:08] VITALS: BP 121/67; PULSE 62; RESP 16; TEMP 36.6; O2SAT 98
== END 2025-08-03 07:22 | disposition home or self-care (01) ==
PROVIDERS: Emergency Provider Emergency Medicine; PCP Internal Medicine
DX: N13.9 Obstructive and reflux uropathy, unspecified (principal); N20.1 Calculus of ureter; R10.2 Pelvic and perineal pain; R11.0 Nausea; M54.50 Low back pain, unspecified; Z79.899 Other long term (current) drug therapy
CPT/HCPCS: 36415; 74177; 80053; 80076; 81001; 82248; 83690; 85025; 96361; 96374; 96375; 99284; 99285; J0131; J2405; J7120; Q9967

== ENCOUNTER → 2025-08-03 00:48 | Outpatient (BNV) | payer MEDICARE, MEDICAID, SELFPAY | PROVIDERS: Emergency Provider Emergency Medicine; PCP Internal Medicine; Visit Provider Radiology Vascular & Interventional Radiology | DX: N20.2 Calculus of kidney with calculus of ureter (principal) | CPT/HCPCS: 74177 ==

== ENCOUNTER 2025-09-03 07:18 | Emergency (ER) | payer MEDICARE, MEDICAID, SELFPAY ==
--- NOTE | 2025-09-03 07:21 | PC.NURSE ---
CALL TO [employer]PER[employer]OR [employer].
[2025-09-03 07:38] VITALS: BP 144/83; PULSE 64; RESP 20; TEMP 36.6; O2SAT 98; BMI 27.1
[2025-09-03 08:07] LABS: MANUAL DIFF FLAG NO
[2025-09-03 08:10] LABS: Appearance Urine Clear; Glucose Urine UA Negative (Negative); Hematocrit 43.2 % (37.0-47.0); Hemoglobin 14.4 g/dl (12.0-16.0); Imm Gran Abs Auto 0.04 X10*3/uL (0.00-0.03); Imm Gran Pct Auto 0.4 % (0.0-0.4); Lymphocytes Absolute Auto 1.4 X10*3/uL (1.2-4.9); Mean Corpuscular HGB Conc 33.3 g/dl (31.0-35.0); Mean Corpuscular Hemoglobin 29.3 pg (27.0-33.0); Mean Corpuscular Volume 87.8 fL (80.0-98.0); NRBC Abs Auto 0.000 X10*3/uL (0.0-0.012); NRBC Pct Auto 0.0 /100WBC (0.0-0.2); PH 6.5 (5.0-9.0); Platelet Count 182 X10*3/uL (160-400); Red Blood Count 4.92 X10*6/uL (4.20-5.50); Specific Gravity - Urine 1.020 (1.005-1.025); UMIC TRIGGER UACC YES; White Blood Count 11.3 X10*3/uL (4.8-10.8)
[2025-09-03 08:17] LABS: UACC Culture Trigger YES
[2025-09-03 08:47] LABS: Anion Gap 15 (12-20); Blood Urea Nitrogen 14 mg/dL (9-16); Calcium 8.9 mg/dL (8.4-10.2); Carbon Dioxide 20 mmol/L (22-29); Chloride 109 mmol/L (96-108); Creatinine Clr Calc Pharmacy 70.6; Estimated Glomerular Filt Rate > 60; Potassium 4.1 mmol/L (3.3-5.1); Sodium 140 mmol/L (135-145)
== END 2025-09-03 15:38 | disposition left against medical advice (07) ==
PROVIDERS: Emergency Provider Emergency Medicine; PCP Internal Medicine
DX: R10.A2 Flank pain, left side (principal); R11.2 Nausea with vomiting, unspecified; Z87.442 Personal history of urinary calculi; Z53.21 Procedure and treatment not carried out due to patient leaving prior to being seen by health care provider
CPT/HCPCS: 36415; 80048; 81001; 85025; 87086; 99281; 99282

== ENCOUNTER 2025-09-05 13:06 | Outpatient (AMB) | payer MEDICARE, MEDICAID, SELFPAY ==
--- NOTE | 2025-09-05 13:09 | A.OFFVIS_ITS ---
Intake Visit Reasons: kidney stones Intake Note: patient presents today for: new pt k.stones urology medications: tamsulosin blood thinners: none Paid Search Analyst Required: Yes Accompanied by: Self / Same As Patient Allergies No Known Allergies Allergy (Verified 09/05/25 13:11) HPI Comments Details: Renetta is a pleasant Azeri-speaking female. She is a patient of . He is seen for the following urologic conditions - nephrolithiasis Azeri translation by provided by qualified medical collections specialist Recent evaluation in emergency room Left-sided small stone UA today 3+ blood, leuks Printed copy of CT provided Persistent pain with nausea Recommend intervention with ureteroscopy given stone location Review of Systems Const Denies chills and Denies fever(s) Card Reports no additional complaints and Denies syncope Resp Denies cough GI Denies abdominal pain and Denies heartburn Reports as per HPI and Denies change in libido Neuro Denies syncope Psych Denies change in libido Endo Denies change in libido Physical Exam Const General: cooperative, healthy appearing, comfortable and no acute distress Orientation/consciousness: patient oriented x3 HEENT Face and sinus: Yes normal facial exam Mouth: moist mucous membranes Neck Neck: Yes normal visual inspection, Yes full ROM and Yes trachea midline Chest Chest palpation & inspection: normal inspection of the chest Resp Effort & Inspection: normal respiratory effort, able to speak in complete sentences and no respiratory distress GI Inspection: Yes normal to inspection Back/Spine/Pelvis Cervical Spine: normal cervical lordosis Thoracic/Lumbar Spine: thoracic and lumbar spine normal to inspection Skin General skin exam: no rashes or lesions noted Neuro General: patient oriented x3, gait normal, tone normal and moves all extremities Extrem General: Yes normal to inspection and Yes capillary refill normal Assessment & Plan Assessment & Plan (1) Nephrolithiasis: Code(s): N20.0 - Calculus of kidney Category: Medical Plan Ureteroscopy We discussed the nature of the decision and reasonable alternatives for performing ureteroscopy. Options such as medical therapy were discussed. Interventions include chemical dissolution, ESWL, ureteroscopy with laser lithotripsy and stent placement, PCNL. The relative uncertainties and benefits related to each alternate procedure were adequately discussed. General surgical risks including, but not limited to - pain, bleeding, infection, myocardial infarction, pulmonary embolus, deep vein thrombosis and cerebrovascular accident which may result in further hospitalization were discussed. Full disclosure of the procedure as well as all major risks, benefits and complications were discussed including but not limited to damage to the urethra, bladder and kidney infection, damage to the ureter, stent migration or malposition, scarring to the renal pelvis, remnant stone fragments, subsequent stone passage with need for secondary procedures. The overall secondary procedure rate is approximately 10-15%. The overall clearance rate is approximately 90-95%. Success of the procedure in the short-term does not necessarily guarantee that long-term success will be maintained. Suitable follow up will need to be maintained. The patient showed understanding of discussion and wishes to proceed with - cystoscopy, retrograde, ureteroscopy, possible lithotripsy/stone basketing and stent on the left side Medications: New naproxen 500 mg PO BID 28 tabs 0RF 14 days N20.0 - Calculus of kidney Patient Instructions: This note is constructed using voice recognition software. While every effort has been made to ensure accuracy occupational work experience teacher errors may have been included. Imaging studies, laboratory and physical exam results were discussed and reviewed in detail. No major barriers to patient understanding were identified. An opportunity to ask questions regarding the treatment plan was provided. All questions were answered. The patient expressed understanding and agreement with the above treatment plan. The patient is aware they should contact our office by phone for worsening of their current condition or the appearance of new urologic symptoms. Compliance is encouraged with any medications and followup testing that is ordered. It is a privilege to participate in the urologic care of your patient. If you have any questions or concerns regarding treatment for the above conditions, or other urologic issues, please do not hesitate to contact me. The office telephone contact is [phone]. Sincerely, Dr Akash Hidalgo MD, [facility] - Urology Compassionate Specialist Care for the Genitourinary System Coding Level of Care Code New Pt Level 4 (78217) Diagnoses Nephrolithiasis N20.0
--- OUTSIDE RECORDS SUMMARY | 2025-09-05 16:29 | XMS_ITS | Clinical Summary ---
Author Organization [facility] [address] [place] [address] [place] [phone] Phone Care Team Providers Care Actionscript Developer Name Role Phone Lyndsey Bell MD Primary Care Provider [phone] Allergies Active Allergy Reactions Criticality Noted Date Comments Tramadol Nausea And Vomiting,Other Medium 03/10/2018 Racing heart Medications bosentan (TRACLEER) 125 mg tablet Take 1 tablet (125 mg total) by mouth 2 (two) times a day. Do not crush or chew. Active omeprazole (PriLOSEC) [address] capsule TAKE 1 CAPSULE BY MOUTH 1 TIME EACH DAY. DO NOT CRUSH OR CHEW. 90 capsule 3 5 Active cholecalcifero l (VITAMIN D-3) 25 mcg (1,000 unit) tablet Take 1 tablet (1,000 Units total) by mouth 1 (one) time each day. 90 tablet 1 5 Active metFORMIN (GLUCOPHAGE) 500 mg tablet Take 1 tablet (500 mg total) by mouth 2 (two) times a day with meals. 180 tablet 1 5 Active amLODIPine (NORVASC) 10 mg tablet TAKE 1 TABLET BY MOUTH 1 TIME EACH DAY. 90 tablet 1 5 Active amLODIPine (NORVASC) 10 mg tablet Take 1 tablet (10 mg total) by mouth 1 (one) time each day. 90 each 1 5 09/05/20 25 Discontinued Active Problems Problem Noted Date Diagnosed Date Osteoarthritis of left knee 09/16/2017 Overview (10/22/2024): Depo-medrol injection 09/16/2017 Chronic back pain 01/18/2017 Vitamin D deficiency 04/29/2016 Hypertension 04/15/2016 Encounters Date Type Department Care Team Description 07/05/2025 Telephone Gastroenterology - [place] [address] [facility] [address] [facility] [address] [place] [phone] Kam Vincent DO 06/17/2025 8:00 AM EDT Office Visit Adult Medicine [address] [phone] Lico Alfaro PA Primary hypertension (Primary Dx); Lower leg edema; Large tonsils 06/11/2025 2:30 PM EDT Anesthesia Event [facility] Endoscopy [address] [place] [phone] Tj Baker DO 06/11/2025 1:38 PM EDT - 06/11/2025 11:59 PM EDT Hospital Encounter [facility] Endoscopy [address] [place] [phone] Kam Vincent DO Vermes, Rachie, CRNA Walsh, Michael, DO Esophagitis determined by biopsy Discharge Disposition: Home or Self Care 06/06/2025 Telephone Gastroenterology - [address] [facility] [address] [facility] [address] [place] [phone] Vero Thomas MA 06/05/2025 Telephone Gastroenterology - [address] [facility] [address] [facility] [address] [place] [phone] Vero Thomas MA from Last 3 Months Immunizations Immunization Administration Dates Next Due Influenza trivalent, with [...] Daughter 2 Alive Father (Age 76) HTN, [place] Mother Alive DM, HTN Social History Tobacco Use Types Packs/Day Years Used Date Smoking Tobacco: Never Passive Smoke Exposure: Never Smokeless Tobacco: Never Tobacco Cessation:Counseling Given: Not Answered Alcohol Use Standard Drinks/Week Comments No 0 (1 standard drink = 0.6 oz pur e alcohol) Interpersonal Safety Answer Date Record ed Physical Abuse Unrecognized value 06/11/2025 Verbal Abuse Unrecognized value 06/11/2025 Comments No Sex and Gender Information [...] 8:00 AM EST Office Visit Adult Medicine [address] [phone] Lyndsey Bell MD [address] [place] [address] 12/12/2025 8:30 AM EST Office Visit Gastroenterology - [address] [facility] [address] [place] [phone] Carlton DO Kam [address] [facility] [address] [facility] [address] [place] [address] Health Maintenance Due Date Last Done Comments Pneumococcal Vaccine: 50+ Years (1 of 1 [...] this topic Medical Devices Implanted Type Area Reinsurance Clerk Device Identifier Shelf Expiration Date Model / Serial / Lot Implants Implants Left: Knee Procedures Procedure Name Priority Date/Time Associated Diagnosis Comments EXTERNAL CT REPORT 08/03/[address] REPORT 08/03/2025 EGD Routine 06/11/2025 2:41 PM EDT Esophagitis determined by biopsy TISSUE EXAM Routine 06/11/2025 2:39 PM EDT Esophagitis determined by biopsy COMPREHENSIVE METABOLIC PANEL Routine 01/24/2025 10:51 AM [...] Recently Relevant to Health Maintenance Results * External CT Report (08/03/2025) Only the most recent of2 resultswithin the time period is included. Anatomical Region Laterality Modality Computed Tomogra phy us Provider [facility] IMG CT PROCEDURES Final Result * EGD Anesthesia - MAC; SP ENDOSCOPY (06/11/2025 2:41 PM EDT) Anatomical Region Laterality Modality Endoscopy 06/11/2025 2:23 [...] esophagitis. Narrative 06/11/2025 2:42 PM EDT [facility] GI Patient Name: Jessa Gonzáles Procedure Date: 06/11/2025 2:23 PM Date of : 1960 Age: 64 Gender: Female Note Status: Finalized Attending MD: Kam Vincent DO, [id number] Procedure Date No Time: 06/11/2025 Procedure: Upper [...] the physician, the nurse, the anesthesiologist, the network and threat support specialist and the voip network technician in the pre-procedure area in the endoscopy [...] for histology. Wide Area Transepithelial Sampling (WATS-3D [place] Biopsy) was performed for histology and samples sent for Computer-Assisted 3-Dimensional analysis. Estimated blood loss was minimal. The stomach was normal. The examined duodenum was normal. Procedure Code(s): --- Professional --- 57619, Esophagogastroduodenoscopy, flexible, transoral; with biopsy, single or multiple Diagnosis Code(s): --- Professional --- K22.89, Other specified disease of esophagus R12, Heartburn CPT copyright 2020 [employer]. All rights reserved. The codes documented in this report are preliminary and upon prosthetist review may be revised to meet current compliance requirements. KAM Vincent DO 06/11/2025 2:42:39 PM This report has been signed electronically.Kam Vicnent DO Number of Addenda: 0 Note Initiated On: 06/11/2025 2:23 PM Scope In: Scope Out: Endoscopy Department at [facility] - [address] [place] [phone] Procedure Note Kam Vincent DO - 06/11/2025 [facility] GI Patient Name: Jessa Gonzáles Procedure Date: 06/11/2025 2:23 PM Date of : 1960 Age: 64 Gender: Female Note Status: Finalized Attending MD: Kam Vincent DO, [id number] Procedure Date No Time: 06/11/2025 Procedure: Upper [...] the physician, the nurse, the anesthesiologist, the network and threat support specialist and thetechnician in the pre-procedure area in [...] cold forcepsfor histology. Wide Area Transepithelial Sampling(WATS-3D [place] Biopsy) was performed for histology andsamples sent for Computer-Assisted 3-Dimensional analysis. Estimated blood loss was minimal. The stomach was normal. The examined duodenum was normal. Procedure Code(s): --- Professional --- 94906, Esophagogastroduodenoscopy, flexible, transoral; with biopsy, single or multiple Diagnosis Code(s): --- Professional --- K22.89, Other specified disease of esophagus R12, Heartburn CPT copyright 2020 [employer]. All rights reserved. The codes documented in this report are preliminary and upon prosthetist reviewmay be revised to meet current compliance requirements. AKM Vincent DO 06/11/2025 2:42:39 PM This report has been signed electronically.Kam Vincent DO Number of Addenda: 0 Note Initiated On: 06/11/2025 2:23 PM Scope In: Scope Out: Endoscopy Department at [facility] - [address] [place] [phone] IMPRESSION: - Z-line irregular, 36 cm from [...] * Tissue exam (06/11/2025 2:39 PM EDT) Final Diagnosis Gastroesophageal junction, biopsy: - Esophageal squamous mucosa with occasional intraepithelial eosinophils (maximum of two intraepithelial eosinophils in a high-power field) and reactive epithelial changes including focal basilar hyperplasia. - Gastric cardiac/fundic type mucosa with patchy chronic inflammation. - No intestinal metaplasia and no dysplasia identified. 06/12/2025 12:47 PM EDT [facility] Gross Description A. Esophagus, ge junction bx's: Labeled esophagus GE junction . Received in formalin are two irregular pink-white mucosal tissue fragments, each measuring approximately 0.2 cm in greatest dimension, which are wrapped in paper and submitted in toto in one cassette, two pieces, multiple levels on one slide. ELI 06/12/2025 12:47 PM EDT [facility] Disclaimer Unless otherwise specified, all tissue is 10% NB formalin fixed and paraffin embedded. 06/12/2025 12:47 PM EDT [facility] Tissue Esophageal structure / Unknown 06/11/2025 2:39 PM EDT 06/11/2025 3:19 PM EDT us Kam Vincent DO LAB PATHOLOGY ORDERABLES Final R esult [facility] [address] [place] [address], [place] [phone] * (ABNORMAL) Lipid panel with reflex to direct LDL (01/24/2025 10:51 AM EDT) Cholesterol 212(H) 0 - 200 mg/dL LAB CHEMISTRY METHOD 01/24/2025 2:43 PM EDT [facility] Triglycerides 92 0 - 150 mg/dL LAB CHEMISTRY METHOD 01/24/2025 2:43 PM EDT [facility] HDL 65 >=40 mg/dL LAB CHEMISTRY METHOD 01/24/2025 2:43 PM EDT [facility] LDL Calculated 129(H) 0 - 100 mg/dL LAB CHEMISTRY METHOD 01/24/2025 2:43 PM EDT [facility] VLDL Cholesterol Carlton 18.4 mg/dL LAB CHEMISTRY METHOD 01/24/2025 2:43 PM EDT [facility] Non HDL Chol. (LDL+VLDL) 147(H) <145 mg/dL LAB CHEMISTRY METHOD 01/24/2025 2:43 PM EDT [facility] Chol/HDL Ratio 3.3 0.0 - 4.4 LAB CHEMISTRY METHOD 01/24/2025 2:43 PM EDT [facility] Blood Venous blood specimen / Unknown Venipuncture / Unknown 01/24/2025 10:51 AM EDT 01/24/2025 10:51 AM EDT us Lyndsey Bell MD LAB BLOOD ORDERABLES Final Resul t [facility] [address] [place] [address], [place] [phone] * (ABNORMAL) Comprehensive metabolic panel (01/24/2025 10:51 AM EDT) Sodium 139 133 - 145 mmol/L LAB CHEMISTRY METHOD 01/24/2025 2:43 PM [facility] Potassium 3.9 3.5 - 5.5 mmol/L LAB CHEMISTRY METHOD 01/24/2025 2:43 PM [facility] Chloride 102 96 - 110 mmol/L LAB CHEMISTRY METHOD 01/24/2025 2:43 PM [facility] CO2 27 21 - 32 mmol/L LAB CHEMISTRY METHOD 01/24/2025 2:43 PM [facility] Anion Gap 10 3 - 11 LAB CHEMISTRY METHOD 01/24/2025 2:43 PM [facility] Glucose 110(H) 70 - 100 mg/dL LAB CHEMISTRY METHOD 01/24/2025 2:43 PM [facility] BUN 13 5 - 25 mg/dL LAB CHEMISTRY METHOD 01/24/2025 2:43 PM [facility] Creatinine 0.73 0.50 - 1.10 mg/dL LAB CHEMISTRY METHOD 01/24/2025 2:43 PM [facility] eGFR 91 >=60 mL/min/1. 73m2 LAB CHEMISTRY METHOD 01/24/2025 2:43 PM [facility] Comment:Calculation based on the Chronic Kidney Disease Epidemiology Collaboration (CKD-EPI) equation refit without adjustment for race. BUN/Creatinine Ratio 17.8 LAB CHEMISTRY METHOD 01/24/2025 2:43 PM [facility] Calcium 9.5 8.5 - 10.5 mg/dL LAB CHEMISTRY METHOD 01/24/2025 2:43 PM [facility] AST (SGOT) 23 10 - 42 unit/L LAB CHEMISTRY METHOD 01/24/2025 2:43 PM EDT [facility] ALT (SGPT) 29 10 - 60 unit/L LAB CHEMISTRY METHOD 01/24/2025 2:43 PM EDT [facility] Alkaline Phosphatase 74 42 - 121 unit/L LAB CHEMISTRY METHOD 01/24/2025 2:43 PM EDT [facility] Total Protein 7.9 6.0 - 8.0 g/dL LAB CHEMISTRY METHOD 01/24/2025 2:43 PM EDT [facility] Albumin 4.1 3.2 - 5.0 g/dL LAB CHEMISTRY METHOD 01/24/2025 2:43 PM EDT [facility] Total Bilirubin 1.0 0.0 - 1.4 mg/dL LAB CHEMISTRY METHOD 01/24/2025 2:43 PM EDT [facility] Blood Venous blood specimen / Unknown Venipuncture / Unknown 01/24/2025 10:51 AM EDT 01/24/2025 10:51 AM EDT Lyndsey Bell MD LAB BLOOD ORDERABLES Final Resul t [facility] [address] [place] [address], * External Colonoscopy Report (05/01/2024 9:16 AM EDT) Anatomical Region Laterality Modality Endoscopy Historical Provider GI~PROCEDURE ORDERABLES F inal Result [...] % Breast cancer risk category Low (<15%) us Sebastien Arciniega MD IMG XR PROCEDURES Final [...] None. Impression: Normal by WHO criteria. The [facility] Department of Internal Medicine recommends [...] alternative screening schedule based on carmela Berumen., [facility] December 02, 2011 for patients with [...] None. Impression: Normal by WHO criteria. The [facility] Medical [facility] Department of Internal Medicine recommendsusing National [...] alternative screening schedule based on carmela Berumen., NEJMJanuary 2011 for patients with osteopenia (based on hip BMD T-score) is as follows: * advanced osteopenia (T scores -2.00 to -2.49), BMD testing every year * moderate osteopenia (T scores -1.50 to -1.99), BMD testing every 5years mild osteopenia or normal BMD (T scores -1.50 and higher), BMD testingevery 15 years Sebastien Arciniega MD [facility] DXA PROCEDURES Ade l Result from Last 3 Months or Most Recently Relevant to Health Maintenance Insurance MEDICARE [place]ICAID [place] [employer] Care Teams Actionscript Developer Relationship Specialty Start Date End Date Lyndsey Bell MD [address] [place] [phone] PCP - General Internal Medicine 01/24/25
== END 2025-09-05 13:42 | disposition home or self-care (01) ==
LOC: HO.HUSH 13:06
PROVIDERS: PCP Internal Medicine; Visit Provider Urology
DX: N20.0 Calculus of kidney (principal); Z13.9 Encounter for screening, unspecified
CPT/HCPCS: 99204

== ENCOUNTER → 2025-09-05 13:06 | Outpatient (BNVA) | payer MEDICARE, MEDICAID, SELFPAY | PROVIDERS: PCP Internal Medicine; Visit Provider Urology | DX: N20.0 Calculus of kidney (principal) | CPT/HCPCS: 81003; 99202 ==

== ENCOUNTER 2025-09-16 12:43 | Day surgery (SDC) | payer MEDICARE, MEDICAID, SELFPAY ==
--- OUTSIDE RECORDS SUMMARY | 2025-09-10 14:41 | XMS_ITS | Clinical Summary ---
Author Organization [facility] [address] [place] [address] [place] [phone] Phone Care Team Providers Care Labelling Machine Operator Name Role Phone Lyndsey Bell MD Primary Care Provider [phone] Allergies Active Allergy Reactions Criticality Noted Date [...] Care Team Description 07/05/2025 Telephone Gastroenterology - [place] 175 [facility] 175 [facility] [address] [place] [phone] Kam Vincent DO 06/17/2025 8:00 AM EDT Office Visit Adult Medicine [address] [phone] Lico Alfaro PA Primary hypertension (Primary Dx); Lower leg edema; Large tonsils 06/11/2025 2:30 PM EDT Anesthesia Event [facility] Endoscopy [address] [place] [phone] Tj Baker DO 06/11/2025 1:38 PM EDT - 06/11/2025 11:59 PM EDT Hospital Encounter [facility] Endoscopy [address] [place] [phone] Kam Vincent DO Vermes, Rachie, CRNA Walsh, Michael, DO Esophagitis determined by biopsy Discharge Disposition: Home or Self Care from Last 3 Months Immunizations Immunization Administration [...] 8:00 AM EST Office Visit Adult Medicine [address] [phone] Lyndsey Bell MD [address] [place], [place] 12/12/2025 8:30 AM EST Office Visit Gastroenterology - [address] [facility] [address] [place] [phone] Kam Vincent DO [address] [place] [phone] Health Maintenance Due Date Last Done Comments [...] this topic Medical Devices Implanted Type Area Bander And Cellophaner Helper Machine Device Identifier Shelf Expiration Date Model / [...] the esophagitis. Narrative 06/11/2025 2:[address] [facility] Patient Name: Jessa Goználes Procedure Date: 06/11/2025 2:23 PM Date of : 1960 Age: 64 Gender: Female Note Status: Finalized Attending MD: Kam Vincent DO, [id number] Procedure Date No Time: 06/11/2025 Procedure: Upper [...] the physician, the nurse, the anesthesiologist, the refrigerator car icer and the personnel and payroll technician in the pre-procedure area in the [...] for histology. Wide Area Transepithelial Sampling (WATS-3D [place] Biopsy) was performed for histology and samples sent for Computer-Assisted 3-Dimensional analysis. Estimated blood loss was minimal. The stomach was normal. The examined duodenum was normal. Procedure Code(s): --- Professional --- 97949, Esophagogastroduodenoscopy, flexible, transoral; with biopsy, single or multiple Diagnosis Code(s): --- Professional --- K22.89, Other specified disease of esophagus R12, Heartburn CPT copyright 2020 [employer]. All rights reserved. The codes documented in this report are preliminary and upon concrete pavement installer review may be revised to meet current compliance requirements. KAM Vincent DO 06/11/2025 2:42:39 PM This report has been signed electronically.Kam Vincent DO Number of Addenda: 0 Note Initiated On: 06/11/2025 2:23 PM Scope In: Scope Out: Endoscopy Department at [facility] - [address] [place] [phone] Procedure Note Kam Vincent DO - 06/11/2025 [facility] GI Patient Name: Jessa Gonzáles Procedure Date: 06/11/2025 2:23 PM Date of : 1960 Age: 64 Gender: Female Note Status: Finalized Attending MD: Kam Vincent DO, [id number] Procedure Date No Time: 06/11/2025 Procedure: Upper [...] the physician, the nurse, the anesthesiologist, the refrigerator car icer and thetechnician in the pre-procedure area in [...] cold forcepsfor histology. Wide Area Transepithelial Sampling(WATS-3D [place] Biopsy) was performed for histology andsamples sent for Computer-Assisted 3-Dimensional analysis. Estimated blood loss was minimal. The stomach was normal. The examined duodenum was normal. Procedure Code(s): --- Professional --- 13118, Esophagogastroduodenoscopy, flexible, transoral; with biopsy, single or multiple Diagnosis Code(s): --- Professional --- K22.89, Other specified disease of esophagus R12, Heartburn CPT copyright 2020 [employer]. All rights reserved. The codes documented in this report are preliminary and upon concrete pavement installer reviewmay be revised to meet current compliance requirements. KAM Vincent DO 06/11/2025 2:42:39 PM This report has been signed electronically.Kam Vincent DO Number of Addenda: 0 Note Initiated On: 06/11/2025 2:23 PM Scope In: Scope Out: Endoscopy Department at [facility] - [address] [place] [phone] IMPRESSION: - Z-line irregular, 36 cm from [...] no dysplasia identified. 06/12/2025 12:47 PM EDT [facility] Gross Description A. Esophagus, ge junction bx's: Labeled esophagus GE junction . Received in formalin are two irregular pink-white mucosal tissue fragments, each measuring approximately 0.2 cm in greatest dimension, which are wrapped in paper and submitted in toto in one cassette, two pieces, multiple levels on one slide. ELI 06/12/2025 12:47 PM EDT [facility] Disclaimer Unless otherwise specified, all tissue is 10% NB formalin fixed and paraffin embedded. 06/12/2025 12:47 PM EDT [facility] Tissue Esophageal structure / Unknown 06/11/2025 2:39 PM EDT 06/11/2025 3:19 PM EDT us Kam Vincent DO LAB PATHOLOGY ORDERABLES Final R esult [facility] [address] [place] [address], [place] [phone] * (ABNORMAL) Lipid panel with reflex to direct LDL (01/24/2025 10:51 AM EDT) Cholesterol 212(H) 0 - 200 mg/dL LAB CHEMISTRY METHOD 01/24/2025 2:43 PM EDT [facility] Triglycerides 92 0 - 150 mg/dL LAB CHEMISTRY METHOD 01/24/2025 2:43 PM EDT [facility] HDL 65 >=40 mg/dL LAB CHEMISTRY METHOD 01/24/2025 2:43 PM EDT [facility] LDL Calculated 129(H) 0 - 100 mg/dL LAB CHEMISTRY METHOD 01/24/2025 2:43 PM EDT [facility] VLDL Cholesterol Carlton 18.4 mg/dL LAB CHEMISTRY METHOD 01/24/2025 2:43 PM EDT [facility] Non HDL Chol. (LDL+VLDL) 147(H) <145 mg/dL LAB CHEMISTRY METHOD 01/24/2025 2:43 PM EDT [facility] Chol/HDL Ratio 3.3 0.0 - 4.4 LAB CHEMISTRY METHOD 01/24/2025 2:43 PM EDT [facility] Blood Venous blood specimen / Unknown Venipuncture / Unknown 01/24/2025 10:51 AM EDT 01/24/2025 10:51 AM EDT us Lyndsey Bell MD LAB BLOOD ORDERABLES Final Resul t [facility] [address] [place] [address], [place] [phone] * (ABNORMAL) Comprehensive metabolic panel (01/24/2025 10:51 AM EDT) Sodium 139 133 - 145 mmol/L LAB CHEMISTRY METHOD 01/24/2025 2:43 PM [facility] Potassium 3.9 3.5 - 5.5 mmol/L LAB CHEMISTRY METHOD 01/24/2025 2:43 PM [facility] Chloride 102 96 - 110 mmol/L LAB CHEMISTRY METHOD 01/24/2025 2:43 PM [facility] CO2 27 21 - 32 mmol/L LAB CHEMISTRY METHOD 01/24/2025 2:43 PM [facility] Anion Gap 10 3 - 11 LAB CHEMISTRY METHOD 01/24/2025 2:43 PM [facility] Glucose 110(H) 70 - 100 mg/dL LAB CHEMISTRY METHOD 01/24/2025 2:43 PM [facility] BUN 13 5 - 25 mg/dL LAB CHEMISTRY METHOD 01/24/2025 2:43 PM [facility] Creatinine 0.73 0.50 - 1.10 mg/dL LAB CHEMISTRY METHOD 01/24/2025 2:43 PM [facility] eGFR 91 >=60 mL/min/1. 73m2 LAB CHEMISTRY METHOD 01/24/2025 2:43 PM [facility] Comment:Calculation based on the Chronic Kidney Disease Epidemiology Collaboration (CKD-EPI) equation refit without adjustment for race. BUN/Creatinine Ratio 17.8 LAB CHEMISTRY METHOD 01/24/2025 2:43 PM [facility] Calcium 9.5 8.5 - 10.5 mg/dL LAB CHEMISTRY METHOD 01/24/2025 2:43 PM [facility] AST (SGOT) 23 10 - 42 unit/L LAB CHEMISTRY METHOD 01/24/2025 2:43 PM [facility] ALT (SGPT) 29 10 - 60 unit/L LAB CHEMISTRY METHOD 01/24/2025 2:43 PM [facility] Alkaline Phosphatase 74 42 - 121 unit/L LAB CHEMISTRY METHOD 01/24/2025 2:43 PM EDT [facility] Total Protein 7.9 6.0 - 8.0 g/dL LAB CHEMISTRY METHOD 01/24/2025 2:43 PM EDT [facility] Albumin 4.1 3.2 - 5.0 g/dL LAB CHEMISTRY METHOD 01/24/2025 2:43 PM EDT [facility] Total Bilirubin 1.0 0.0 - 1.4 mg/dL LAB CHEMISTRY METHOD 01/24/2025 2:43 PM EDT [facility] Blood Venous blood specimen / Unknown Venipuncture / Unknown 01/24/2025 10:51 AM EDT 01/24/2025 10:51 AM EDT Lyndsey Bell MD LAB BLOOD ORDERABLES Final Resul t [facility] [address] [place] [address], * External Colonoscopy Report (05/01/2024 9:16 AM [...] Region Laterality Modality Bone Densitometr y 01/18/2017 4:1 3 PM EST Narrative 01/29/2017 10:37 AM EDT DEXA SCAN: Lumbar Spine T-score is 3.4. (SD relative to 20-29 y/o adult) Z-score is 4.6. (SD relative to age matched peers) This is considered normal by WHO criteria. Left Hip T-score is 1.5. Z-score is 2.3. This is considered normal by WHO criteria. Comparison exam(s): None. Impression: Normal by WHO criteria. [facility] Department of Internal Medicine recommends using [...] alternative screening schedule based on carmela Berumen., [facility] December 02, 2011 for patients with osteopenia [...] None. Impression: Normal by WHO criteria. [facility] Department of Internal Medicine recommendsusing National [...] schedule based on luis miguel Berumen al., NEJMJanuary 2011 for patients with osteopenia (based on hip BMD T-score) is as follows: * advanced osteopenia (T scores -2.00 to -2.49), BMD testing every year * moderate osteopenia (T scores -1.50 to -1.99), BMD testing every 5years mild osteopenia or normal BMD (T scores -1.50 and higher), BMD testingevery 15 years us Sebastien Arciniega MD IMG DXA PROCEDURES Ade l Result from Last 3 Months or Most Recently Relevant to Health Maintenance Insurance MEDICARE [place]ICAID [place] [employer] Care Teams Labelling Machine Operator Relationship Specialty Start Date End Date Lyndsey Bell MD [address] [place] [phone] PCP - General Internal Medicine 01/24/25
--- NOTE | 2025-09-11 14:16 | HO.ANESPROP2 ---
Documented by User: Stephanie Meraz NP 09/11/25 14:22 HPI - Anesthesia Eval Consult details Narrative: 65yo F for Left Cystoscopy, Ureteroroscopy, Retro, Laser,with stent placement ?? Tonsils - pt c/o bothersome tonsils and requested removal at last PCP visit [facility] Active Problems Active Problems: All Active Problems Nephrolithiasis (Acute) Past Medical History Medical History (Updated 09/11/25 @ 14:17 by Stephanie Meraz NP) Chronic back pain Hypertension Social History Social History Patient Tobacco Use Status: Never used Tobacco Have you been hit, kicked, punched, or otherwise hurt by someone within the past year? If so, by whom?: No Are you DNR?: No Advance Directives: No Advance Directives Information Provided: Yes Meds Allergies Allergy/AdvReac Type Severity Reaction Status Date / Time No Known Allergies Allergy Verified 09/05/25 13:11 Exam Pertinent Lab Results Pertinent Lab Results: Laboratory Tests 09/03/25 07:54 WBC 11.3 H Hgb 14.4 Hct 43.2 Plt Count 182 Sodium 140 Potassium 4.1 Chloride 109 H Carbon Dioxide 20 L BUN 14 Creatinine 0.76 Assessment and Plan Assessment Anesthesia Assessment: Chart Reviewed Documented by User: Delfino Torres MD 09/16/25 12:59 [facility] Active Problems Active Problems: All Active Problems Nephrolithiasis (Acute) hypertension Past Medical History Medical History (Updated 09/11/25 @ 14:17 by Stephanie Meraz NP) Chronic back pain Hypertension Patient : No Family History Family history of problems with anesthesia: No Surgical History History of Problems with Anesthesia: No Social History Social History Patient Tobacco Use Status: Never used Tobacco Have you been hit, kicked, punched, or otherwise hurt by someone within the past year? If so, by whom?: No Are you DNR?: No Advance Directives: No Advance Directives Information Provided: Yes Meds Allergies Allergy/AdvReac Type Severity Reaction Status Date / Time No Known Allergies Allergy Verified 09/05/25 13:11 Exam Airway Mallampati Class: II TM Dist: >3cm Neck ROM: Full Denture: Upper Loose/Missing/Broken Teeth: No Heart: RRR Lungs: CcTA Assessment and Plan Final Anesthetic Review Family History of Problems with Anesthesia: No History of Problems with Anesthesia: No NPO: Yes ASA Class: II Final Preanesthetic Review: No Changes in Pt Med Stat, Meds/Allgs Chart Reviewed, Consent Obtained/Reviewed and Anes Risks/Benef Reviewed Patient Risk: Low Procedure Risk: Low Anesthetic Plan Anesthetic Plan: GA Disposition: Standard PACU
[2025-09-13 15:39] VITALS: BMI 27.4
--- NOTE | ~2025-09-16 | FL_ITS ---
EXAMINATION: XR FLUOROSCOPY WITH IMAGES CLINICAL INFORMATION: Left stone COMPARISON: CT 08/03/2025 TECHNIQUE: Fluoroscopy provided to: Dr. Wisemna Fluoroscopy time: 0.2 seconds DAP: 5.5 mGycm2 Images: 1 FINDINGS: Single image obtained in the operating room. Stent/tubing projected along the left pelvis. FL/FL guidance in OR IMPRESSION: Fluoroscopy during procedure. Please see procedure report for additional information. Electronically signed by: Sincere Kyle MD 09/17/2025 02:37 PM EST
[2025-09-16 12:47] VITALS: BP 146/78; PULSE 70; RESP 18; TEMP 36.4; O2SAT 96; BMI 26.2
[2025-09-16] MEDS: Lactated Ringers 1,000 ML 100 ML IVCONT (13:11)
--- NOTE | 2025-09-16 14:04 | MHC.SHP ---
Pre-Procedural Eval Section A - 24 Hr Update-Section A only Date of Service: 09/16/25 The patient is an INPATIENT: No Changes since office visit: No Cold of Flu in the past 2 weeks, No New Medical Problems, No Changes in Medication and No Patient answered all questions The patient has been examined within 24 hours of the surgical procedure. The History & Physical has been completed within 30 days and I have reviewed it.: Yes Section B - Complete if H&P > 30 days Chief Complaint: Calculus of kidney Details of Present Illness: Left proximal ureteric stone Relevant Social History: None Present Medications: see Short Stay Collaborative assessment Medical History: No relevant PMH History of Previous Operations: No relevant previous surgery Allergies: Allergies Allergy/AdvReac Type Severity Reaction Status Date / Time No Known Allergies Allergy Verified 09/05/25 13:11 Review of Systems Sugical H&P ROS: Negative: Constitution, Cardiovascular, Respiratory, Neurological, Psychiatric, Hem-Onc, Allergic/Immunologic, Gastrointestinal, Genitourinary, Musculoskeletal, Integumentary, Endocrine and Eyes/Ears/Nose/Throat Exam Surgical H&P Exam: Normal: HEENT, Normal: Heart, Normal: Lungs, Normal: Extremities, Normal: Abdomen, Normal: Skin and Normal: Neurological Plan Diagnosis/Plan: Unchanged (Cystoscopy, left retrograde, left ureteroscopy with laser lithotripsy and stent placement) I have reviewed the history and physical and performed a pertinent physical examination on my patient. No changes have occurred unless specified. Time Spent With Patient Time: Total time managing care of this patient today ____ minutes.
[2025-09-16 15:15] VITALS: BP 126/75; PULSE 84; RESP 18; TEMP 36.1; O2SAT 94
--- NOTE | 2025-09-16 15:19 | W.PM.OPN ---
Operative Note Operative Note Date of Service: 09/16/25 Narrative: PreOperative Diagnosis: Proximal left ureteric stone Post Operative Diagnosis: Proximal left ureteric stone Procedure: - cystoscopy, left retrograde - left dilatation of ureteric orifice under fluoroscopy - left ureteroscopy - left stent placement Surgeon: Dr Akash Hidalgo Anesthesia: General Indications for procedure: Seen in emergency room. Proximal left ureteric stone. Persistent pain and discomfort. 3 mm. Offered procedure given symptomatic state. Procedure: After informed consent was verified the patient was brought to the operating room and placed in a supine position. Anesthesia was administered per protocol. The patient was placed in a modified dorsal lithotomy position and prepped and draped in a sterile fashion. Safety pause time-out and side of surgery were confirmed. Images were available for review. Antibiotic administration confirmed. A 22 Indonesian cystoscope was inserted per urethra. The urethra was without abnormality. The bladder was normal in its entirety. Both ureteric orifices were seen in normal position. The left ureteric orifice was cannulated and a retrograde examination was performed. Small filling defects seen in proximal portion of ureter . A Sensor guidewire was placed up to the level of the renal pelvis under fluoroscopy. The rigid cystoscope was removed. A Campus dilator was placed over the Sensor guidewire and used to dilate the ureteric orifice under fluoroscopy. The dilator was removed. The semi rigid ureteral scope was placed alongside the Sensor guidewire. Stone was not encountered along length of ureter. Likely pushed up into renal pelvis. Due to small stone size decision made to place stent rather than pursue ureteroscopy flexible in renal pelvis. Based on the height of the patient a 6 Fr x 24 cm stent was used. The string was removed from the stent prior to placement. A 6 Indonesian by 24 cm double-J stent was placed into the renal pelvis and bladder under a combination of fluoroscopy and direct visualization. The symphisis pubis was used as a radiographic marker to release the stent and good coil was seen within the bladder confirming position Proximal positioning of the stent was confirmed using fluoroscopy. The bladder was emptied. The patient tolerated the procedure well and was extubated in the operating room. They were transferred in stable condition to the recovery area. Pathology: Drains: Double J stent as described above
[2025-09-16 15:20] VITALS: BP 120/73; PULSE 91; RESP 18; O2SAT 95
[2025-09-16 15:25] VITALS: BP 120/73; PULSE 91; RESP 18; TEMP 36.1; O2SAT 95
[2025-09-16 15:30] VITALS: BP 120/75; PULSE 91; RESP 18; O2SAT 95
== END 2025-09-16 16:17 | disposition home or self-care (01) ==
PROVIDERS: PCP Internal Medicine; Visit Provider Urology
PROC: (CPT 52332; principal; 2025-09-16 14:40)
DX: N20.1 Calculus of ureter (principal); G89.29 Other chronic pain; M54.9 Dorsalgia, unspecified; I10 Essential (primary) hypertension; Z79.1 Long term (current) use of non-steroidal anti-inflammatories (NSAID); Z79.899 Other long term (current) drug therapy
CPT/HCPCS: 52332; C1758; C1769; C2617; J0131; J1100; J1885; J1956; J2003; J2405; J2704; J3010; Q9967

== ENCOUNTER → 2025-09-16 12:43 | Outpatient (BNV) | payer MEDICARE, MEDICAID, SELFPAY | PROVIDERS: PCP Internal Medicine; Visit Provider Urology | DX: N20.1 Calculus of ureter (principal) | CPT/HCPCS: 52332; 74420 ==

== ENCOUNTER 2025-09-26 13:04 | Outpatient (AMB) | payer MEDICARE, MEDICAID, SELFPAY ==
--- NOTE | 2025-09-26 13:07 | MHC.OFFVIS ---
Intake Visit Reasons: Stent removal Intake Note: patient presents today for: Cystoscopy with stent removal urology medications: tamsulosin blood thinners: none News Operations Manager Required: Yes Accompanied by: Self / Same As Patient Allergies No Known Allergies Allergy (Verified 09/26/25 13:14) HPI Comments Details: Renetta is a pleasant Croatian-speaking female. She is a patient of . He is seen for the following urologic conditions - nephrolithiasis Croatian translation by provided by qualified director of medical services Here for stent removal Three-month follow-up KUB Nephrolithiasis Recent evaluation in emergency room Left-sided small stone [address] Intervention - left ureteroscopy with stent placement PFSH Medical History (Updated 09/11/25 @ 14:17 by Stephanie Meraz NP) Chronic back pain Hypertension Surgical History (Updated 09/16/25 @ 13:03 by Fatemeh Cisse RN) H/O section Hx of colonoscopy Social History Patient Tobacco Use Status: Never used Tobacco Review of Systems Const Denies chills and Denies fever(s) Card Reports no additional complaints and Denies syncope Resp Denies cough GI Denies abdominal pain and Denies heartburn Reports as per HPI and Denies change in libido Neuro Denies syncope Psych Denies change in libido Endo Denies change in libido Physical Exam Const General: cooperative, healthy appearing, comfortable and no acute distress Orientation/consciousness: patient oriented x3 HEENT Face and sinus: Yes normal facial exam Mouth: moist mucous membranes Neck Neck: Yes normal visual inspection, Yes full ROM and Yes trachea midline Chest Chest palpation & inspection: normal inspection of the chest Resp Effort & Inspection: normal respiratory effort, able to speak in complete sentences and no respiratory distress GI Inspection: Yes normal to inspection Back/Spine/Pelvis Cervical Spine: normal cervical lordosis Thoracic/Lumbar Spine: thoracic and lumbar spine normal to inspection Skin General skin exam: no rashes or lesions noted Neuro General: patient oriented x3, gait normal, tone normal and moves all extremities Extrem General: Yes normal to inspection and Yes capillary refill normal Office Procedures Cystoscopy Consent Discussed risk and benefit or proposed procedure with the patient. Information consent for procedure given to the patient. Discussed technical aspects, risks, benefits and alternatives in full. Addressed all of the patient's questions and concerns regarding the procedure. The patient demonstrated knowledge and understanding. They wish to proceed with this procedure. Preparation The patient was prepped in the usual manner. A neuropsychology division chief was present and in the room. Genitalia was prepped with betadine solution in a sterile manner. Lidocaine Jelly 2% was placed into the urethra and 16Fr flexible Olympus cystoscope was inserted into the meatus after adequate lubrication. Procedure A well lubricated 16 Croatian cystoscope was placed No abnormality noted of urethra during placement Indwelling stent seen within bladder emerging from left ureteric orifices The stent was grasped with a 3 prong grasper and removed without difficulty The patient tolerated the procedure well [id number] with stent removal DISPOSABLE SCOPE URO-G FLEXIBLE SCOPE Procedure code (CPT) selection complete Office Meds lidocaine HCl 2 % mucosal jelly in applicator Performing Provider: Akash Hidalgo MD Performing Location: [facility] Administered by: Emmy Grace RN on 09/26/25 13:28 Dose Route Admin Location Dispensed Lot Number Expiration Date [facility] Application Packaging Specialist 10 mL intra-urethral 10 mL nitrofurantoin monohydrate/macrocrystals 100 mg capsule Performing Provider: Akash Hidalgo MD Performing Location: [facility] Administered by: Emmy Grace RN on 09/26/25 13:28 Dose Route Admin Location Dispensed Lot Number Expiration Date [place] Application Packaging Specialist 100 mg PO 1 cap Results AMB Urinalysis, Automated UA Leukoctes 500 Faby/uL Last Edit by CHRISTINE Guerra on 09/26/25 13:19 UA Nitrite Positive Last Edit by Jaimie Mendoza [facility] on 09/26/25 13:19 UA Urobilinogen 0.2 mg/dL Last Edit by Jaimie Mendoza [facility] on 09/26/25 13:19 UA Protein 300 mg/dL Last Edit by Jaimie Mendoza [facility] on 09/26/25 13:19 UA pH 6.0 Last Edit by Jaimie Mendoza [facility] on 09/26/25 13:19 UA Blood 200 Manoj/uL Last Edit by Jaimie Mendoza [facility] on 09/26/25 13:19 UA Specific [place] 1.025 Last Edit by Jaimie Mendoza [facility] on 09/26/25 13:19 UA Ketone Negative Last Edit by CHRISTINE Guerra on 09/26/25 13:19 UA Bilirubin 0 mg/dL Last Edit by CHRISTINE Guerra on 09/26/25 13:19 UA Glucose 0 mg/dL Last Edit by CHRISTINE Guerra on 09/26/25 13:19 Results Reviewed Results Reviewed: Laboratory Last Values Urine pH (Auto) 6.0 09/26/25 13:19 Specific [place] (Auto) 1.025 09/26/25 13:19 Urine Protein (Auto) 300 mg/dL 09/26/25 13:19 Glucose (UA)(Auto) 0 mg/dL 09/26/25 13:19 Urine Ketones (Auto) Negative 09/26/25 13:19 Urine Blood (Auto) 200 Manoj/uL 09/26/25 13:19 Urine Nitrite (Auto) Positive 09/26/25 13:19 Urine Bilirubin (Auto) 0 mg/dL 09/26/25 13:19 Urine Urobilinogen (Auto) 0.2 mg/dL 09/26/25 13:19 Leukocyte Esterase (Auto) 500 Faby/uL 09/26/25 13:19 Assessment & Plan Assessment & Plan (1) Nephrolithiasis: Code(s): N20.0 - Calculus of kidney Category: Medical Plan Three-month follow-up imaging Orders: Orders XR KUB 3 Months N20.0 - Calculus of kidney AMB Cystoscopy 09/26/25 N20.0 - Calculus of kidney Urine Culture 09/26/25 N39.0 - Urinary tract infection, site not specified Medications: New sulfamethoxazole-trimethoprim 800-160 mg (Bactrim DS) 1 tab PO BID 6 tabs 0RF 3 days N20.0 - Calculus of kidney Patient Instructions: This note is constructed using voice recognition software. While every effort has been made to ensure accuracy paperback machine operator errors may have been included. Imaging studies, laboratory and physical exam results were discussed and reviewed in detail. No major barriers to patient understanding were identified. An opportunity to ask questions regarding the treatment plan was provided. All questions were answered. The patient expressed understanding and agreement with the above treatment plan. The patient is aware they should contact our office by phone for worsening of their current condition or the appearance of new urologic symptoms. Compliance is encouraged with any medications and followup testing that is ordered. It is a privilege to participate in the urologic care of your patient. If you have any questions or concerns regarding treatment for the above conditions, or other urologic issues, please do not hesitate to contact me. The office telephone contact is [phone]. Sincerely, Dr Akash Hidalgo MD, [facility] - Urology Compassionate Specialist Care for the Genitourinary System Coding Level of Care Code Est Pt Level 3 (61785) Diagnoses Nephrolithiasis N20.0 CPT Codes Cystoscopy - CPT: 68719-[id number] with stent removal ([id number])
--- OUTSIDE RECORDS SUMMARY | 2025-09-26 16:22 | XMS_ITS | Clinical Summary ---
Author Organization [facility] [address] [place] [address] [place] [phone] Phone Care Team Providers Care Resident Intern Name Role Phone Lyndsey Bell MD Primary Care Provider [phone] Allergies Active Allergy Reactions Criticality Noted Date [...] Care Team Description 07/05/2025 Telephone Gastroenterology - [place] [address] [facility] [address] [place] [address] Ashwin Vincent DO from Last 3 Months Immunizations Immunization Administration [...] Daughter 2 Alive Father (Age 76) HTN, [place] Mother Alive DM, HTN Social History Tobacco [...] 8:00 AM EST Office Visit Adult Medicine [address] [phone] Lyndsey Bell MD [address] [place] [address] 12/12/2025 8:30 AM EST Office Visit Gastroenterology - [address] [phone] Ashwin Vincent DO [address] [address] Health Maintenance Due Date Last Done Comments [...] this topic Medical Devices Implanted Type Area Disbursing Officer Device Identifier Shelf Expiration Date Model / Serial / Lot Implants Implants Left: Knee Procedures Procedure Name Priority Date/Time Associated Diagnosis Comments EXTERNAL XRAY REPORT 09/16/2025 EXTERNAL XRAY REPORT 09/16/[address] REPORT 08/03/[address] REPORT 08/03/2025 COMPREHENSIVE METABOLIC PANEL Routine 01/24/2025 10:51 AM [...] Relevant to Health Maintenance Results * External Xray Report (09/16/2025) Only the most recent of2 resultswithin the time period is included. Anatomical Region Laterality Modality Radiographic Taylor ging us Provider [facility] XR PROCEDURES Final Result * External CT Report (08/03/2025) Only the most recent of2 resultswithin the time period is included. Anatomical Region Laterality Modality Computed Tomogra phy us Provider [facility] CT PROCEDURES Final Result * (ABNORMAL) Lipid panel with reflex to direct LDL (01/24/2025 10:51 AM EDT) Cholesterol 212(H) 0 - 200 mg/dL LAB CHEMISTRY METHOD 01/24/2025 2:43 PM EDT [facility] Triglycerides 92 0 - 150 mg/dL LAB CHEMISTRY METHOD 01/24/2025 2:43 PM EDT [facility] HDL 65 >=40 mg/dL LAB CHEMISTRY METHOD 01/24/2025 2:43 PM EDT [facility] LDL Calculated 129(H) 0 - 100 mg/dL LAB CHEMISTRY METHOD 01/24/2025 2:43 PM EDT [facility] VLDL Cholesterol Carlton 18.4 mg/dL LAB CHEMISTRY METHOD 01/24/2025 2:43 PM EDT [facility] Non HDL Chol. (LDL+VLDL) 147(H) <145 mg/dL LAB CHEMISTRY METHOD 01/24/2025 2:43 PM EDT [facility] Chol/HDL Ratio 3.3 0.0 - 4.4 LAB CHEMISTRY METHOD 01/24/2025 2:43 PM [facility] Blood Venous blood specimen / Unknown Venipuncture / Unknown 01/24/2025 10:51 AM EDT 01/24/2025 10:51 AM EDT us Lyndsey Bell MD LAB BLOOD ORDERABLES Final Resul t [facility] [address] [place] [address], * (ABNORMAL) Comprehensive metabolic panel (01/24/2025 10:51 AM EDT) Sodium 139 133 - 145 mmol/L LAB CHEMISTRY METHOD 01/24/2025 2:43 PM [facility] Potassium 3.9 3.5 - 5.5 mmol/L LAB CHEMISTRY METHOD 01/24/2025 2:43 PM [facility] Chloride 102 96 - 110 mmol/L LAB CHEMISTRY METHOD 01/24/2025 2:43 PM [facility] CO2 27 21 - 32 mmol/L LAB CHEMISTRY METHOD 01/24/2025 2:43 PM [facility] Anion Gap 10 3 - 11 LAB CHEMISTRY METHOD 01/24/2025 2:43 PM [facility] Glucose 110(H) 70 - 100 mg/dL LAB CHEMISTRY METHOD 01/24/2025 2:43 PM [facility] BUN 13 5 - 25 mg/dL LAB CHEMISTRY METHOD 01/24/2025 2:43 PM [facility] Creatinine 0.73 0.50 - 1.10 mg/dL LAB CHEMISTRY METHOD 01/24/2025 2:43 PM [facility] eGFR 91 >=60 mL/min/1. 73m2 LAB CHEMISTRY METHOD 01/24/2025 2:43 PM [facility] Comment:Calculation based on the Chronic Kidney Disease Epidemiology Collaboration (CKD-EPI) equation refit without adjustment for race. BUN/Creatinine Ratio 17.8 LAB CHEMISTRY METHOD 01/24/2025 2:43 PM EDT [facility] Calcium 9.5 8.5 - 10.5 mg/dL LAB CHEMISTRY METHOD 01/24/2025 2:43 PM T [facility] AST (SGOT) 23 10 - 42 unit/L LAB CHEMISTRY METHOD 01/24/2025 2:43 PM EDT [facility] ALT (SGPT) 29 10 - 60 unit/L LAB CHEMISTRY METHOD 01/24/2025 2:43 PM [facility] Alkaline Phosphatase 74 42 - 121 unit/L [facility] Total Protein 7.9 6.0 - 8.0 g/dL LAB CHE[facility]STRY [facility] Albumin 4.1 3.2 - 5.0 g/dL LAB CHEMISTRY METHOD 01/24/2025 2:43 PM [facility] Total Bilirubin 1.0 0.0 - 1.4 mg/dL LAB CHEMISTRY METHOD 01/24/2025 2:43 PM EDT [facility] Blood Venous blood specimen / Unknown Venipuncture / Unknown 01/24/2025 10:51 AM EDT 01/24/2025 10:51 AM EDT us Lyndsey Bell MD LAB BLOOD ORDERABLES Final Resul t [facility] [address] [place] [address], * External Colonoscopy Report (05/01/2024 9:16 AM [...] None. Impression: Normal by WHO criteria. [facility] Department of Internal Medicine recommends using [...] alternative screening schedule based on carmela Berumen., [facility] December 02, 2011 for patients with [...] None. Impression: Normal by WHO criteria. [facility] Department of Internal Medicine recommendsusing National [...] alternative screening schedule based on car[facility]ela Berumen., [facility] for patients with [facility]openia (based on hip BMD T-score) is as follows: * advanced osteopenia (T scores -2.00 to -2.49), BMD testing every year * moderate osteopenia (T scores -1.50 to -1.99), BMD testing every 5years mild osteopenia or normal BMD (T scores -1.50 and higher), BMD testingevery 15 years Sebastien Arciniega MD [facility] DXA PROCEDURES Ade l Result from Last 3 Months or Most Recently Relevant to Health Maintenance Insurance MEDICARE [place]ICA[place] Care Teams Resident Intern Relationship Specialty Start Date End Date Lyndsey Bell MD [address] [place] [phone] PCP - General Internal Medicine 01/24/25
== END 2025-09-26 13:44 | disposition home or self-care (01) ==
LOC: HO.HUSH 13:04
PROVIDERS: PCP Internal Medicine; Visit Provider Urology
DX: N20.0 Calculus of kidney (principal)
CPT/HCPCS: 52310

== ENCOUNTER 2025-09-26 13:04 | Outpatient (REF) | payer MEDICARE, MEDICAID, SELFPAY | END 2025-09-26 13:05 | disposition home or self-care (01) | LOC: HO.LAB 13:04 | PROVIDERS: PCP Internal Medicine; Visit Provider Urology | DX: N20.0 Calculus of kidney (principal); N39.0 Urinary tract infection, site not specified | CPT/HCPCS: 52310; 87086 ==

== ENCOUNTER 2025-10-30 08:18 | Outpatient (REF) | payer MEDICARE, MEDICAID, SELFPAY ==
--- OUTSIDE RECORDS SUMMARY | 2025-10-30 08:26 | XMS_ITS | Clinical Summary ---
Author Organization [facility] [address] [place] [address] [place] [phone] Phone Care Team Providers Care Housing Management Officer Name Role Phone Lyndsey Bell MD Primary Care Provider [phone] Allergies Active Allergy Reactions Criticality Noted Date [...] NOT CRUSH OR CHEW. 90 capsule 3 05/06/20 25 Active Additional Information Patient not taking.Reported on 10/17/2025 cholecalciferol (VITAMIN D-3) 25 mcg (1,000 unit) tablet Take 1 tablet (1,000 Units total) by mouth 1 (one) time each day. 90 tablet 1 05/16/20 25 Active metFORMIN (GLUCOPHAGE) 500 mg tablet Take 1 tablet (500 mg total) by mouth 2 (two) times a day with meals. 180 tablet 1 05/16/20 25 Active Additional Information Patient not taking.Reported on 10/17/2025 amLODIPine (NORVASC) 10 mg tablet TAKE 1 TABLET BY MOUTH 1 TIME EACH DAY. 90 tablet 1 09/05/20 25 Active diclofenac (VOLTAREN) 1 % topical gelIndications:Kyleigh sandi osteoarthritis of right hand Apply 2 g topically 2 (two) times a day. 100 g 10/17/20 25 Active Active Problems Problem Noted Date Diagnosed Date Osteoarthritis of left knee 09/16/2017 Overview (10/22/2024): Depo-medrol injection 09/16/2017 Chronic back pain 01/18/2017 Vitamin D deficiency 04/29/2016 Hypertension 04/15/2016 Assessment & Plan (10/17/2025 8:45 AM EST): Continue with amlodipine 10 mg daily. Orders: Comprehensive metabolic panel; Future Lipid panel with reflex to direct LDL; Future Encounters Date Type Department Care Team Description 10/21/2025 Results Follow-Up Adult [address] [phone] Lyndsey Bell MD 10/17/2025 8:50 AM EST Lab Draw Station [address] Urinary frequency; Impaired fasting glucose; Primary hypertension 10/17/2025 8:00 AM EST Office Visit Adult [address] [phone] Lyndsey Bell MD Encounter for annual wellness visit (AWV) in Medicare patient (Primary Dx); Primary hypertension; Impaired fasting glucose; Urinary frequency; Primary osteoarthritis of right hand; Screening mammogram for breast cancer from Last 3 Months Immunizations Immunization Administration Dates Next Due Influenza trivalent, 0.5mL ( Fluzone High-dose) 65yo and older 07/23/2025 Influenza trivalent, with pr eservative (Fluzone; Afluria) 6mo and older 11/01/2016 [employer] SARS-CoV-2 COVID-19, mRNA, LNP-S, preservative free 12/05/2021,04/11/2021,03/21/2021 Tdap Tetanus diptheria acell ular pertussis (Boostrix; [...] Daughter 2 Alive Father (Age 76) HTN, [place] Mother Alive DM, HTN Social History Tobacco Use Types Packs/Day Years Used Date Smoking Tobacco: Never Passive Smoke Exposure: Never Smokeless Tobacco: Never Alcohol Use Standard Drinks/Week Comments No 0 (1 standard drink = 0.6 oz pur e alcohol) Housing Instability Answer Date Recorde d Are you worried that in the next 2 months you may not have stable housing? No 10/17/2025 Food Access & Nutrition Answer Date Rec orded Do you have access to a vari ety of food including fruits and vegetables? No 10/17/2025 Health Literacy Answer Date Recorded How often do you need to hav e someone help you when you read instructions, pamphlets, or other written material from your doctor or pharmacy? Never 10/17/2025 Caregiver: How often do you need to have someone help you when you read instructions, pamphlets, or other written material from your doctor or pharmacy? Not on file 10/17/2025 Financial Risk Answer Date Recorded How hard is it for you to pa y for the very basics like food, housing, medical care, and air conditioning / heating? Not very hard 10/17/2025 Transportation Answer Date Recorded Has the lack of transportati on kept you from meetings, work, or from getting things needed for daily living? No Has the lack of transportati on kept you from medical appointments or from getting medications? No 10/17/2025 Social Isolation Answer Date Recorded How often do you feel lonely or isolated from th ose around you? Never 10/17/2025 Food Risk Answer Date Recorded Within the past 12 months we worried whether our food would run out before we got money to buy more. Never true 10/17/2025 Within the past 12 months th e food we bought just didn't last and we didn't have money to get more. Never true 10/17/2025 Dependent Care Answer Date Recorded Do you need help finding or paying for care for your loved ones. For example, child welfare manager or elderly care for an older adult? No 10/17/2025 Education Answer Date Recorded Do you think completing more education or training, like finishing a GED, going to college, or learning a trade, would be helpful for you? No 10/17/2025 Employment and Income Answer Date Recor ded During the last four weeks, have you been actively looking for work? No 10/17/2025 Living Situation Answer Date Recorded What is your living situation? Unrecognized valu e 10/17/2025 Interpersonal Safety Answer Date Record ed Physical Abuse Unrecognized value 06/11/2025 Verbal Abuse Unrecognized value 06/11/2025 Comments No Sex and Gender Information Value Date Recorded Sex Assigned at Female 02/15/2025 11:02 AM EDT Legal Sex Female 2:34 PM EST Gender Identity Female 02/15/2025 11:02 AM EDT Sexual Orientation Straight 02/15/2025 11 :02 AM EDT Last Filed Vital Signs Vital Sign Reading Time Taken Comments Blood Pressure 138/78 10/17/2025 8:36 AM EST Pulse 68 10/17/2025 8:01 AM EST Temperature 36.4 C (97.5 F) 10/17/2025 8:01 AM EST Respiratory Rate 14 10/17/2025 8:01 AM EST Oxygen Saturation 98% 10/17/2025 8:01 AM EST Inhaled Oxygen Concentration - - Weight 69.4 kg (153 lb) 10/17/2025 8:01 AM EST Height 162.6 cm (5' 4 ) 10/17/2025 8:01 AM EST Body Mass Index 26.26 10/17/2025 8:01 AM EST Plan of Treatment Upcoming Encounters Date Type Department Care Team (Late st Contact Info) Description 01/02/2026 11:20 AM EST Office Visit Gastroenterology - [address] [facility] [address] [place] [phone] Ashwin Vincent DO 299 [facility] [address] [place] [address] 02/18/2026 10:00 AM EDT Office Visit Adult Medicine [address] [phone] Lyndsey Bell MD [address] [place], [place] Health Maintenance Due Date Last Done Comments Pneumococcal Vaccine: 50+ Years (1 of 1 - PCV) 2009 Zoster Vaccines (1 of 2) 2009 Breast Cancer Screening 02/05/2020 02/04/2018, 01/28 Hepatitis C Screening 10/13/2022 COVID-19 Vaccine ( season) 2025 12/05/2021, 04/11/2021, 03/21/2021 Falls Risk Assessment 10/17/2026 10/17/2025, 025 Hypertension/CHF/CAD Annual BMP Blood Test 10/17/2026 10/17/2025, 01/24/2025, 01/15/2024, Additional history exists Medicare Annual Wellness Visit 10/17/2026 10/17/2025 Social Influencers of Health Screening 10/17/2026 10/17/2025 Osteoporosis Screening (Bone Density Screening) 01/28/2027 01/28/2017 DTaP,Tdap,and Td Vaccines (2 - Td or Tdap) 06/23/2028 06/23/2018 Cholesterol Screening (Lipid Panel) 10/17/2030 10/17/2025, 01/24/2025, 11/27/2016 Colorectal Cancer Screening: Colonoscopy 05/01/2031 05/01/2024, 05/01/2024, 05/01/2024, Additional history exists RSV Immunization Adult Patients (1 - 1-dose 75+ series) 2034 Influenza Vaccine Completed 07/23/2025, 11/01/2016 Depression Screening Completed 10/17/2025 HIB Vaccines Aged Out No longer eligi [...] this topic Medical Devices Implanted Type Area Pin Game Machine Inspector Device Identifier Shelf Expiration Date Model / Serial / Lot Implants Implants Left: Knee Procedures Procedure Name Priority Date/Time Associated Diagnosis Comments JONES URINE CULTURE TUBE Routine 10/17/2025 8:59 AM EST Urinary frequency URINALYSIS WITH REFLEX MICROSCOPIC AND CULTURE Routine 10/17/2025 8:58 AM EST Urinary frequency COMPREHENSIVE METABOLIC PANEL Routine 10/17/2025 8:58 AM EST Primary hypertension LIPID PANEL WITH REFLEX TO DIRECT LDL Routine 10/17/2025 8:58 AM EST Primary hypertension HEMOGLOBIN A1C Routine 10/17/2025 8:58 AM EST Impaired fasting glucose URINALYSIS WITH REFLEX MICROSCOPIC AND CULTURE Routine 10/17/2025 8:58 AM EST Urinary frequency CULTURE URINE Routine 10/17/2025 8:58 AM EST Urinary frequency EXTERNAL XRAY REPORT 09/16/2025 EXTERNAL XRAY REPORT 09/16/[address] REPORT 08/03/[address] REPORT 08/03/2025 EXTERNAL COLONOSCOPY REPORT Routine 05/01/2024 9:16 AM [...] Recently Relevant to Health Maintenance Results * Jones urine culture tube (10/17/2025 8:59 AM EST) Pathologist [facility] [place] Extra Tube Hold for add-ons. 10/17/2025 11:01 AM [facility] Comment:Auto resulted. Urine Urine specimen obtained by clean catch procedure / Unknown Non-blood Collection / Unknown 10/17/2025 8:59 AM EST 10/17/2025 8:59 AM EST us Lyndsey Bell MD LAB URINE ORDERABLES Final Resul t [facility] [address] [place] [address], [place] [phone] * (ABNORMAL) Urinalysis with reflex microscopic and culture (10/17/2025 8:58 AM EST) [facility] Specific [place] Urine 1.018 1.003 - 1.030 LAB URINALYSIS - AUTOMATED METHOD 10/17/2025 11:22 AM [facility] pH, Urine 6.5 5.0 - 8.0 pH LAB URINALYSIS - AUTOMATED METHOD 10/17/2025 11:22 AM [facility] Leukocytes, Urine Moderate(A) Negative LAB URINALYSIS - AUTOMATED METHOD 10/17/2025 11:22 AM [facility] Nitrite, Urine Negative Negative LAB URINALYSIS - AUTOMATED METHOD 10/17/2025 11:22 AM [facility] Protein, Urine Negative <=Trace mg/dL LAB URINALYSIS - AUTOMATED METHOD 10/17/2025 11:22 AM [facility] Glucose, Urine Negative Negative mg/dL LAB URINALYSIS - AUTOMATED METHOD 10/17/2025 11:22 AM [facility] Ketones, Urine Negative Negative mg/dL LAB URINALYSIS - AUTOMATED METHOD 10/17/2025 11:22 AM [facility] Urobilinogen , Urine 0.2 0.2 - 1.0 mg/dL LAB URINALYSIS - AUTOMATED METHOD 10/17/2025 11:22 AM [facility] Bilirubin, Urine Negative Negative LAB URINALYSIS - AUTOMATED METHOD 10/17/2025 11:22 AM [facility] Blood, Urine Negative Negative LAB URINALYSIS - AUTOMATED METHOD 10/17/2025 11:22 AM [facility] RBC, Urine 3 0 - 4 /HPF 10/17/2025 11:22 AM [facility] WBC, Urine 12(H) 0 - 4 /HPF 10/17/2025 11:22 AM [facility] Squamous Epithelial, Urine 20 0 - 60 /LPF 10/17/2025 11:22 AM [facility] Non-Squamous Epithelial, Urine 2-5 Transitional epithelial cells. /LPF 10/17/2025 11:22 AM [facility] Bacteria, Urine Negative Negative /HPF 10/17/2025 11:22 AM [facility] Mucus, Urine Moderate None /HPF 10/17/2025 11:22 AM [facility] Urine Urine specimen obtained by clean catch procedure / Unknown Non-blood Collection / Unknown 10/17/2025 8:58 AM EST 10/17/2025 8:58 AM EST us Lyndsey Bell MD LAB URINE ORDERABLES Final Resul t [facility] [address] [place] [address], * (ABNORMAL) Lipid panel with reflex to direct LDL (10/17/2025 8:58 AM EST) Cholesterol 189 0 - 200 mg/dL 10/17/2025 12:36 PM [facility] Triglycerides 219(H) 0 - 150 mg/dL 10/17/2025 12:36 PM [facility] HDL 51 >=40 mg/dL 10/17/2025 12:36 PM [facility] LDL Calculated 94 0 - 100 mg/dL 10/17/2025 12:36 PM [facility] Comment:Estimated LDL Calcul ated using equation: Total cholesterol - HDL cholesterol - (Triglycerides/5) VLDL Cholesterol Carl[place] 43.8 mg/dL 10/17/2025 12:36 PM [facility] Non HDL Chol. (LDL+VLDL) 138 <145 mg/dL 10/17/2025 12:36 PM [facility] Chol/HDL Ratio 3.7 0.0 - 4.4 10/17/2025 12:36 PM [facility] Blood Venous blood specimen / Unknown Venipuncture / Unknown 10/17/2025 8:58 AM EST 10/17/2025 8:58 AM EST us Lyndsey Bell MD LAB BLOOD ORDERABLES Final Resul t [facility] [address] [place] [address], [place] [phone] * Culture urine (10/17/2025 8:58 AM EST) Culture, Urine No growth 10/18/2025 8:[address] [facility] Urine Urine specimen obtained by clean catch procedure / Unknown Non-blood Collection / Unknown 10/17/2025 8:58 AM EST 10/17/2025 11:22 AM EST us Lyndsey Bell MD LAB MICROBIOLOGY - GENERAL ORDER LILIANA Final Result [facility] [address] [place] [address], [place] [phone] * Hemoglobin A1c (10/17/2025 8:58 AM EST) Hemoglobin A1C 5.3 <6.5 % LAB CHEMISTRY METHOD 10/17/2025 12:30 PM [facility] Mean Bld Glu Estim. 105 mg/dL LAB CHEMISTRY METHOD 10/17/2025 12:30 PM [facility] Blood Venous blood specimen / Unknown Venipuncture / Unknown 10/17/2025 8:58 AM EST 10/17/2025 8:58 AM EST us Lyndsey Bell MD LAB BLOOD ORDERABLES Final Resul t [facility] [address] [place] [address], * Comprehensive metabolic panel (10/17/2025 8:58 AM EST) Pathologist [facility] [place] Sodium 140 133 - 145 mmol/L 10/17/2025 12:36 PM [facility] Potassium 3.6 3.5 - 5.5 mmol/L 10/17/2025 12:36 PM [facility] Chloride 101 96 - 110 mmol/L 10/17/2025 12:36 PM [facility] CO2 29 21 - 32 mmol/L 10/17/2025 12:36 PM [facility] Anion Gap 10 3 - 11 10/17/2025 12:36 PM [facility] Glucose 99 70 - 100 mg/dL 10/17/2025 12:36 PM [facility] BUN 11 5 - 25 mg/dL 10/17/2025 12:36 PM [facility] Creatinine 0.78 0.50 - 1.10 mg/dL 10/17/2025 12:36 PM [facility] eGFR 84 >=60 mL/min/1. 73m2 10/17/2025 12:36 PM [facility] Comment:Calculation based on the Chronic Kidney Disease Epidemiology Collaboration (CKD-EPI) equation refit without adjustment for race. BUN/Creatinine Ratio 14.1 10/17/2025 12:36 PM [facility] Calcium 9.1 8.5 - 10.5 mg/dL 10/17/2025 12:36 PM [facility] AST (SGOT) 18 10 - 42 unit/L 10/17/2025 12:36 PM [facility] ALT (SGPT) 19 10 - 60 unit/L 10/17/2025 12:36 PM [facility] Alkaline Phosphatase 121 42 - 121 unit/L 10/17/2025 12:36 PM [facility] Total Protein 7.4 6.0 - 8.0 g/dL 10/17/2025 12:36 PM [facility] Albumin 4.4 3.2 - 5.0 g/dL 10/17/2025 12:36 PM [facility] Total Bilirubin 0.5 0.0 - 1.4 mg/dL 10/17/2025 12:36 PM [facility] Blood Venous blood specimen / Unknown Venipuncture / Unknown 10/17/2025 8:58 AM EST 10/17/2025 8:58 AM EST us Lyndsey Bell MD LAB BLOOD ORDERABLES Final Resul t [facility] [address] [place] [address], * External Xray Report (09/16/2025) Only the most recent of2 resultswithin the time period is included. Anatomical Region Laterality Modality Radiographic Taylor ging us Provider [facility] XR PROCEDURES Final Result * External CT Report (08/03/2025) Only the most recent of2 resultswithin the time period is included. Anatomical Region Laterality Modality Computed Tomogra phy Provider [facility] PROCEDURES Final Result * External Colonoscopy Report (05/01/2024 9:16 AM [...] Result * DXA BONE DENSITY STUDY 1+ JIMY PALUMBO SKEL (01/28/2017 4:21 PM EDT) Anatomical Region [...] None. Impression: Normal by WHO criteria. The [facility] Department of Internal Medicine recommends using National [...] alternative screening schedule based on carmela Berumen., [facility] December 02, 2011 for patients [...] None. Impression: Normal by WHO criteria. The [facility] Department of Internal Medicine recommendsusing National Osteoporosis [...] alternative screening schedule based on carmela Berumen., [place] 2011 for patients with osteopenia (based on hip BMD T-score) is as follows: * advanced osteopenia (T scores -2.00 to -2.49), BMD testing every year * moderate osteopenia (T scores -1.50 to -1.99), BMD testing every 5years mild osteopenia or normal BMD (T scores -1.50 and higher), BMD testingevery 15 years Sebastien Arciniega MD IM DXA PROCEDURES Ade l Result from Last 3 Months or Most Recently Relevant to Health Maintenance Insurance MEDICARE [place]ICAID [place] Care Teams Housing Management Officer Relationship Specialty Start Date End Date Lyndsey Bell MD [address] [place] [phone] PCP - General Internal Medicine 01/24/25
--- OUTSIDE RECORDS SUMMARY | 2025-10-30 08:27 | XMS_ITS | Encounter Summary ---
Author Organization [facility] Address [address] [place] [address] Care Team Providers Care Commis Chef Name Role Phone Lyndsey Bell MD Primary Care Provider [phone] Encounter Details Date Type Department Care Team ([facility] st Contact Info) Description 10/21/2025 Results Follow-Up Adult Medicine [address] [phone] Lyndsey Bell MD [address] [place] [address] Social History Tobacco Use Types Packs/Day Years [...] for your loved ones. For example, child care provider or elderly care for an older adult? [...] Orientation Straight 02/15/2025 11 :02 AM EDT documented as of this encounter Plan of Treatment Upcoming Encounters Date Type Department Care Team (Late st Contact Info) Description 01/02/2026 11:20 AM EST Office Visit Gastroenterology - [address] [phone] Ashwin Vincent DO 299 [facility] [address] [place] [address] 02/18/2026 10:00 AM EDT Office Visit Adult Medicine [facility] [address] [place] [address] Lyndsey Bell MD [address] [place] [address] documented as of this encounter Visit Diagnoses Not on filedocumented in this encounter Additional Health Concerns Assessment Noted Time PHQ-9 Depression Total Score: 2 10/17/20 8:16 AM EST A fall risk assessment has been complete d for the patient 10/17/2025 8:11 AM EST documented as of this encounter Care Teams Commis Chef Relationship Specialty Start Date End Date Lyndsey Bell MD [address] [place] [address] PCP - General Internal Medicine 01/24/25 documented as of this encounter
== END 2025-10-30 08:19 | disposition home or self-care (01) ==
LOC: HO.MAMMO 08:18
PROVIDERS: PCP Internal Medicine; Visit Provider Internal Medicine
DX: Z12.31 Encounter for screening mammogram for malignant neoplasm of breast (principal)
CPT/HCPCS: 77063; 77067

== ENCOUNTER → 2025-10-30 08:30 | Outpatient (BNV) | payer MEDICARE, MEDICAID, SELFPAY | PROVIDERS: PCP Internal Medicine; Visit Provider Radiology Body Imaging | DX: Z12.31 Encounter for screening mammogram for malignant neoplasm of breast (principal) | CPT/HCPCS: 77063; 77067 ==

== ENCOUNTER 2025-11-13 06:46 | Emergency (ER) | payer MEDICARE, MEDICAID, SELFPAY ==
[2025-11-13 06:55] VITALS: BP 161/81; PULSE 72; RESP 20; TEMP 36.4; O2SAT 98; BMI 26.3
[2025-11-13 07:10] LABS: MANUAL DIFF FLAG NO
[2025-11-13 07:15] LABS: Hematocrit 41.8 % (37.0-47.0); Hemoglobin 13.9 g/dl (12.0-16.0); Imm Gran Abs Auto 0.01 X10*3/uL (0.00-0.03); Imm Gran Pct Auto 0.1 % (0.0-0.4); Lymphocytes Absolute Auto 2.2 X10*3/uL (1.2-4.9); Mean Corpuscular HGB Conc 33.3 g/dl (31.0-35.0); Mean Corpuscular Hemoglobin 29.4 pg (27.0-33.0); Mean Corpuscular Volume 88.4 fL (80.0-98.0); NRBC Abs Auto 0.000 X10*3/uL (0.0-0.012); NRBC Pct Auto 0.0 /100WBC (0.0-0.2); Platelet Count 186 X10*3/uL (160-400); Red Blood Count 4.73 X10*6/uL (4.20-5.50); White Blood Count 7.5 X10*3/uL (4.8-10.8)
--- NOTE | 2025-11-13 07:25 | ED_ITS ---
HPI - General Adult General Chief complaint: General Medical Stated complaint: swollen lymph nodes Time Seen by Provider: 11/13/25 07:09 Source: patient, family () and lang interpreter (Emirati) Mode of arrival: ambulatory Limitations: language barrier (Emirati) History of Present Illness ED Provider: SUZAN AVILA PA-C HPI narrative: 65 year old female pmhx significant for HTN presents to the ED today for evaluation of sore throat x a few days. She reports associated headache and enlarged lymph nodes to her left neck. Reports pain with swallowing, no difficulty swallowing. Tolerating PO. Reports history of similar, states she is typically diagnosed with an upper respiratory infection when she develops these symptoms. She has not trialed anything at home for. Denies any known sick contacts. Denies fever, chills, nausea, vomiting, diarrhea, abdominal pain. Related Data Previous Rx's ?Medication ?Instructions ?Recorded amlodipine 5 mg tablet 5 mg PO DAILY 30 days #30 ta bs 08/04/24 lisinopril 20 1 tab PO DAILY #90 tabs 08/15 06/06 mg-hydrochlorothiazide 25 mg tablet cetirizine 10 mg tablet (All Day 10 mg PO DAILY #30 ta bs 10/16/24 Allergy (cetirizine)) tamsulosin 0.4 mg capsule (Flomax) 0.4 mg PO BEDTIME # 7 caps 08/03/25 naproxen 500 mg tablet 500 mg PO BID PRN pain 7 day s #14 09/16/25 tabs phenazopyridine 100 mg tablet 100 mg PO TID PRN Spasm 4 days #12 09/16/25 (Pyridium) tabs solifenacin 5 mg tablet 5 mg PO DAILY spasm 14 days #14 09/16/25 tabs tamsulosin 0.4 mg capsule 0.4 mg PO BEDTIME 14 days #1 4 caps 09/16/25 sulfamethoxazole 800 1 tab PO BID 3 days #6 tabs 09/26/25 mg-trimethoprim 160 mg tablet (Bactrim DS) benzocaine 15 mg-menthol 3.6 mg 1 mirtha mucous membrane Q4H PRN sore 11/13/25 lozenges (Cepacol Sore Throat throat #16 ea (benzocaine-menthol)) Allergies Allergy/AdvReac Type Severity Reaction Status Date / Time No Known Allergies Allergy Verified 11/13/25 06:57 Review of Systems 2 Review of Systems: Yes all other systems are reviewed and are negative [facility] Past Medical History Attestation statement: The following information was validated with the patient. Source: old records reviewed and nursing notes reviewed Medical History Chronic back pain Hypertension Surgical History H/O section Hx of colonoscopy Social History Social History Patient Tobacco Use Status: Never used Tobacco Smoked in Last 30 Days: No Use of substances other than those prescribed or required for medical reasons: No Advance Directives: No Advance Directives Information Provided: Yes Do you have a plan to hurt others: No Plan Physical Exam ED Vital Signs: Vital Signs - 24 hr 11/13/25 06:55 Temperature 97.5 F Pulse Rate 72 Respiratory Rate 20 Blood Pressure 161/81 H Pulse Oximetry 98 Oxygen Delivery Method Room Air BMI result Body Mass Index 26.3 patient is hypertensive, vitals are otherwise wnl General: Well appearing, in no acute distress. Skin: Warm, dry, intact. No rashes or lesions. Head: Normocephalic, atraumatic. EENT: Hearing is intact b/l. Conjunctiva clear. PERRLA. EOM intact. Moist mucous membranes.?Posterior oropharynx erythematous, no tonsillar exudates or peritonsillar masses, uvula midline, controlling secretions, speaking complete sentences, no muffled voice Neck: b/l cervical LAD, ttp. Cardiac: Chest wall symmetric. RRR Lungs: Normal respiratory effort without accessory muscle use. CTA bilaterally. No rales, rhonchi, or wheezes.? Back: No midline spinous or paraspinal tenderness. No step off deformity. Ext: Upper and lower extremities atraumatic, without tenderness, deformity, swelling or erythema Neuro: AOx3. Normal speech. Ambulating with steady gait Course Course Course Narrative: labs unremarkable. viral swabs negative. likely viral URI - will treat symptomatically. advised f/u with pcp. Patient has remained stable throughout ED visit today. Discussed worrisome signs and symptoms and when to return to the ED. All questions answered at this time. Patient is agreeable with disposition and stable for discharge. Medications Administered Discontinued Medications Generic Name Dose Route Start Last Admin Trade Name Noemi PRN Reason Stop Dose Admin Ibuprofen 600 mg 11/13/25 08:15 11/13/25 08:23 Ibuprofen 600 Mg Tablet PO 11/13/25 08:16 600 mg ONCE ONE Administration Medical Decision Making Medical Decision Making [facility] Narrative: 65 year old female pmhx significant for HTN presents to the ED today for evaluation of sore throat x a few days. patient is hypertensive, vitals are otherwise wnl. she is well appearing, in NAD. o Differential diagnosis includes viral syndrome, strep throat, lymphadenopathy Unlikely Michael's angina, CSW, retropharyngeal abscess, deep tissue neck mass, lymphoma, anaphylaxis Differential Diagnosis Differential Diagnoses: The differential diagnosis associated with the presentation includes as above. Admission/Observation not indicated. Lab Data [facility] Lab Attestation statement: I reviewed the patient's lab results. as above. 11/13/25 07:06 11/13/25 07:06 Labs: Lab Results 11/13/25 11/13/25 Range/Units 07:06 07:49 WBC 7.5 (4.8-10.8) X10*3/uL RBC 4.73 (4.20-5.50) X10*6/uL Hgb 13.9 (12.0-16.0) g/dl Hct 41.8 (37.0-47.0) % MCV 88.4 (80.0-98.0) fL MCH 29.4 (27.0-33.0) pg MCHC 33.3 (31.0-35.0) g/dl RDW 13.0 (11.0-16.0) % Plt Count 186 (160-400) X10*3/uL MPV 10.8 (9.4-12.3) fL Immature Gran % (Auto) 0.1 (0.0-0.4) % Neut % (Auto) 45.0 (45-73) % Lymph % (Auto) 29.7 (20-40) % Pennington % (Auto) 7.0 (2-11) % Eos % (Auto) 17.4 H (0-4) % Baso % (Auto) 0.8 (0-2) % Lymph # (Auto) 2.2 (1.2-4.9) X10*3/uL Pennington # (Auto) 0.5 (0.1-1.2) X10*3/uL Eos # (Auto) 1.3 H (0.0-0.4) X10*3/uL Baso # (Auto) 0.1 (0.0-0.2) X10*3/uL Abs Immat Gran (auto) 0.01 (0.00-0.03) X10*3/uL Absolute Neuts (auto) 3.4 (2.0-8.3) x10*3/uL Absolute Nucleated RBC 0.000 (0.0-0.012) X10*3/uL Nucleated RBC % (auto) 0.0 (0.0-0.2) /100WBC Sodium 142 (135-145) mmol/L Potassium 3.7 (3.3-5.1) mmol/L Chloride 110 H (96-108) mmol/L Carbon Dioxide 23 (22-29) mmol/L Anion Gap 13 (12-20) BUN 15 (9-16) mg/dL Creatinine 0.69 (0.5-1.4) mg/dL Estim Creat Clear Calc 76.7 Estimated GFR > 60 Random Glucose 98 (60-115) mg/dL Calcium 8.8 (8.4-10.2) mg/dL Total Bilirubin 0.4 (0.0-1.0) mg/dL AST 23 (5-31) U/L ALT 23 (0-31) U/L Alkaline Phosphatase 109 (39-117) U/L Total Protein 7.2 (6.5-8.0) g/dL Albumin 4.3 (3.5-5.0) g/dL Influenza Type A (PCR) NEGATIVE (Negative) Influenza Type B (PCR) NEGATIVE (Negative) RSV RNA Qual (PCR) NEGATIVE (Negative) SARS-CoV-2 RNA (RT-PCR) NEGATIVE (Negative) S. pyogenes GrpA MARIA ISABEL Negative (Negative) Independent Historian Clinical information obtained from an independent historian. History obtained from or confirmed by: Spouse External Record Review External record reviewed: Inpatient record Prescription Management I considered prescription management with: Pain Medication Chronic Conditions Patient?s care impacted by: Hypertension Social Determinants Patient?s care significantly limited by Social Determinants of Health including: Other Social Determinant of Health Critical Care Time Critical Care Time Critical Care Time: No Discharge Plan Discharge Clinical Impression: Viral infection Patient Disposition: Home, Self-Care Instructions: Viral Syndrome (ED) Additional Instructions: Your blood work is reassuring. You tested negative for covid, flu, rsv, and strep throat. You likely have a viral upper respiratory infection that does not require antibiotic treatment. I am sending cepacol throat lozenges for you to take as needed for your sore throat. Alter ibuprofen and Tylenol for fevers and body aches. Follow up with your primary care provider. If symptoms persist or worsen please return to the emergency department. The case of an emergency call 911. Prescriptions: New Cepacol Sore Throat (mel-men) 15-3.6 mg lozenge 1 mirtha mucous membrane Q4H PRN (Reason: sore throat) Qty: 16 0RF No Action amlodipine 5 mg tablet 5 mg PO DAILY 30 Days Qty: 30 0RF cetirizine [All Day Allergy (cetirizine)] 10 mg tablet 10 mg PO DAILY Qty: 30 0RF phenazopyridine [Pyridium] 100 mg tablet 100 mg PO TID PRN (Reason: Spasm) 4 Days Qty: 12 0RF tamsulosin 0.4 mg capsule 0.4 mg PO BEDTIME 14 Days Qty: 14 0RF naproxen 500 mg tablet 500 mg PO BID PRN (Reason: pain) 7 Days Qty: 14 0RF solifenacin 5 mg tablet 5 mg PO DAILY 14 Days Qty: 14 0RF Rx Instructions: take 1 tab daily for 7 days while stent in place lisinopril-hydrochlorothiazide 20-25 mg tablet 1 tab PO DAILY Qty: 90 0RF tamsulosin [Flomax] 0.4 mg capsule 0.4 mg PO BEDTIME Qty: 7 0RF sulfamethoxazole-trimethoprim [Bactrim DS] 800-160 mg tablet 1 tab PO BID 3 Days Qty: 6 0RF Referrals: Lyndsey Bell MD [Primary Care Provider, Internal Medicine] Interventions: ED Discharge Assessment Last Done: 11/13/25 09:24 Discharge Date/Time: 11/13/25 09:25 Print Language: Emirati
[2025-11-13 07:39] LABS: Alanine Aminotransferase 23 U/L (0-31); Albumin Level 4.3 g/dL (3.5-5.0); Alkaline Phosphatase 109 U/L (39-117); Anion Gap 13 (12-20); Aspartate Amino Transferase 23 U/L (5-31); Blood Urea Nitrogen 15 mg/dL (9-16); Calcium 8.8 mg/dL (8.4-10.2); Carbon Dioxide 23 mmol/L (22-29); Chloride 110 mmol/L (96-108); Creatinine Clr Calc Pharmacy 76.7; Estimated Glomerular Filt Rate > 60; Potassium 3.7 mmol/L (3.3-5.1); Sodium 142 mmol/L (135-145); Total Protein 7.2 g/dL (6.5-8.0)
--- OUTSIDE RECORDS SUMMARY | 2025-11-13 07:48 | XMS_ITS | Encounter Summary ---
Author Organization [facility] Address [address] [place] [address] Care Team Providers Care Steam Trap Worker Name Role Phone Lyndsey Bell MD Primary Care Provider [phone] Reason for Referral * Imaging (Routine) - Authorized Specialty Diagnoses / Procedures Referred By Tyler grant Referred To Contact Radiology Diagnoses Abnormal mammogram Procedures US Breast Complete Right Lyndsey Bell MD [address] [place] [address] Phone: tel: fax: External Performed Referral ID Status Reason Start Date Expiration Date V isits Requested Visits Authorized [id number] Authorized 11/08/2025 11/08/2026 1 1 * Imaging (Routine) - Authorized Specialty Diagnoses / Procedures Referred By Tyler grant Referred To Contact Radiology Diagnoses Abnormal mammogram Procedures MG Mammo Digital Diagnostic Right Lyndsey Bell MD [address] [place] [address] Phone: tel: fax: External Performed Referral ID Status Reason Start Date Expiration Date V isits Requested Visits Authorized [id number] Authorized 11/08/2025 11/08/2026 1 1 Reason for Visit * Reason Onset Date Comments Request For Order(s) 11/08/2025 Encounter Details Date Type Department Care Team ([facility] Contact Info) Description 11/08/2025 Telephone Adult Medicine [address], [place] [phone] Lyndsey Bell MD [address] [place], [place] Social History Tobacco Use Types Packs/Day Years [...] for your loved ones. For example, child nutrition manager or elderly care for an older [...] AM EDT documented as of this encounter Progress Notes * Colt Abbott MA - 11/11/2025 1:02 PM EST Orders faxed manually. * Lyndsey Bell MD - 11/08/2025 3:42 PM EST Orders signed, please fax * Jeane Orellana MA - 11/08/2025 3:21 PM EST Mammo printed and ininbox * Monique Ni - 11/08/2025 2:17 PM EST [facility] IS ASKING FOR AN ORDER FOR: RIGHT BREAST DIAGNOSTIC MAMMOGRAM AND US OF RIGHT BREAST DUE TO AN ABNORMAL MAMMOGRAM FAX# [phone] documented in this encounter Plan of Treatment Upcoming Encounters Date Type Department Care Team (Late st Contact Info) Description 01/02/2026 11:20 AM EST Office Visit Gastroenterology - [address] [address] Ashwin Vincent DO [address] [address] 02/18/2026 10:00 AM EDT Office Visit Adult Medicine [address] [phone] Lyndsey Bell MD [address] [place] [address] Scheduled Orders Name Type Priority Associated Diagnoses Orde r Schedule MG Mammo Digital Diagnostic Right Imaging Routine Abnormal mammogram Expected: 11/08/2025, Expires: 11/08/2026 US Breast Complete Right Imaging Routine Abnormal mammogram Expected: 11/08/2025, Expires: 11/08/2026 documented as of this encounter Visit Diagnoses Diagnosis Abnormal mammogram- Primary Abnormal mammogram, unspecified documented in this encounter Additional Health Concerns Assessment Noted Time PHQ-9 Depression Total Score: 2 10/17/20 8:16 AM EST A fall risk assessment has been complete d for the patient 10/17/2025 8:11 AM EST documented as of this encounter Care Teams Steam Trap Worker Relationship Specialty Start Date End Date Lyndsey Bell MD [address] [place] [address] PCP - General Internal Medicine 01/24/25 documented as of this encounter
--- OUTSIDE RECORDS SUMMARY | 2025-11-13 07:48 | XMS_ITS | Clinical Summary ---
Author Organization [facility] [address] [place] [address] [place] [phone] Phone Care Team Providers Care Automation Operator Name Role Phone Lyndsey Bell MD Primary Care Provider [phone] Allergies Active Allergy Reactions Criticality Noted Date [...] Encounters Date Type Department Care Team Description 11/08/2025 Telephone Adult Medicine [address] [phone] Lyndsey Bell MD 10/21/2025 Results Follow-Up [address] [phone] Lyndsey Bell MD 10/17/2025 8:50 AM EST Lab Draw [address] Urinary frequency; Impaired fasting glucose; Primary hypertension 10/17/2025 8:00 AM EST Office Visit [address] [phone] Lyndsey Bell MD Encounter for annual wellness visit (AWV) in Medicare patient (Primary Dx); Primary hypertension; Impaired fasting glucose; Urinary frequency; Primary osteoarthritis of right hand; Screening mammogram for breast cancer from Last 3 Months Immunizations Immunization Administration Dates Next Due Influenza trivalent, 0.5mL ( Fluzone High-dose) 65yo and older 07/23/2025 Influenza trivalent, with pr eservative (Fluzone; Afluria) 6mo and older 11/01/2016 Sweepery SARS-CoV-2 COVID-19, mRNA, LNP-S, preservative free 12/05/2021,04/11/2021,03/21/2021 [...] Daughter 2 Alive Father (Age 76) HTN, [place] Mother Alive DM, HTN Social History Tobacco [...] care for your loved ones. For example, director of early childhood education or elderly care for an older adult? [...] AM EST Office Visit Gastroenterology - [address] [place] [phone] Ashwin Vincent DO 299 [facility] [address] [place] [address] 02/18/2026 10:00 AM EDT Office Visit Adult Medicine [facility] [address] [place] [address] Lyndsey Bell MD [address] [place], [place] Health Maintenance Due Date Last Done Comments Pneumococcal Vaccine: 50+ Years (1 of 1 - PCV) 2009 Zoster Vaccines (1 of 2) 2009 Hepatitis C Screening 10/13/2022 COVID-19 Vaccine ( season) 2025 12/05/2021, 04/11/2021, 03/21/2021 Falls Risk Assessment 10/17/2026 10/17/2025, 025 Hypertension/CHF/CAD Annual BMP Blood Test 10/17/2026 10/17/2025, 01/24/2025, 01/15/2024, Additional history exists Medicare Annual Wellness Visit 10/17/2026 10/17/2025 Social Influencers of Health Screening 10/17/2026 10/17/2025 Osteoporosis Screening (Bone Density Screening) 01/28/2027 01/28/2017 Breast Cancer Screening 10/30/2027 10/30/20 25, 10/30/2025, 02/04/2018, Additional history exists DTaP,Tdap,and Td Vaccines (2 - Td or [...] this topic Medical Devices Implanted Type Area Housekeeper/Laundry Assistant Device Identifier Shelf Expiration Date Model / Serial / Lot Implants Implants Left: Knee Procedures Procedure Name Priority Date/Time Associated Diagnosis Comments EXTERNAL MAMMOGRAM REPORT 10/30/2025 EXTERNAL MAMMOGRAM REPORT 10/30/2025 JONES URINE CULTURE TUBE Routine 10/17/2025 8:59 [...] REPORT 09/16/2025 EXTERNAL XRAY REPORT 09/16/2025 EXTERNAL COLONOSCOPY REPORT Routine 05/01/2024 9:16 AM EDT DXA BONE DENSITY STUDY 1+ SITS AXIAL SKEL Routine 01/28/2017 4:21 PM EDT Low back pain Other chronic pain Encounter for screening for osteoporosis from Last 3 Months or Most Recently Relevant to Health Maintenance Results * External Mammogram Report (10/30/2025) Only the most recent of2 resultswithin the time period is included. Anatomical Region Laterality Modality Mammography us Provider [facility] IMG BI PROCEDURES Final Result * Jones urine culture tube (10/17/2025 8:59 AM EST) Pathologist [facility] Extra Tube Hold for add-ons. 10/17/2025 11:01 AM [facility] Comment:Auto resulted. Urine Urine specimen obtained by clean catch procedure / Unknown Non-blood Collection / Unknown 10/17/2025 8:59 AM EST 10/17/2025 8:59 AM EST Lyndsey Bell MD LAB URINE ORDERABLES Final Resul t [facility] [address] [place] [address], [place] [phone] * (ABNORMAL) Urinalysis with reflex microscopic and culture (10/17/2025 8:58 AM EST) Pathologist [facility] Specific Lindsay Urine 1.018 1.003 - 1.030 LAB URINALYSIS - AUTOMATED METHOD 10/17/2025 11:22 AM [facility] pH, Urine 6.5 5.0 - 8.0 pH LAB URINALYSIS - AUTOMATED METHOD 10/17/2025 11:22 AM [facility] Leukocytes, Urine Moderate(A) Negative LAB URINALYSIS - AUTOMATED METHOD 10/17/2025 11:22 AM [facility] Nitrite, Urine Negative Negative LAB URINALYSIS - AUTOMATED METHOD 10/17/2025 11:22 AM [facility] Protein, Urine Negative <=Trace mg/dL LAB URINALYSIS - AUTOMATED METHOD 10/17/2025 11:22 AM [facility] Glucose, Urine Negative Negative mg/dL LAB URINALYSIS - AUTOMATED METHOD 10/17/2025 11:22 AM [facility] Ketones, Urine Negative Negative mg/dL LAB URINALYSIS - AUTOMATED METHOD 10/17/2025 11:22 AM [facility] Urobilinogen , Urine 0.2 0.2 - 1.0 mg/dL LAB URINALYSIS - AUTOMATED METHOD 10/17/2025 11:22 AM [facility] Bilirubin, Urine Negative Negative LAB URINALYSIS - AUTOMATED METHOD 10/17/2025 11:22 AM [facility] Blood, Urine Negative Negative LAB URINALYSIS - AUTOMATED METHOD 10/17/2025 11:22 AM [facility] RBC, Urine 3 0 - 4 /HPF 10/17/2025 11:22 AM [facility] WBC, Urine 12(H) 0 - 4 /HPF 10/17/2025 11:22 AM [facility] Squamous Epithelial, Urine 20 0 - 60 /LPF 10/17/2025 11:22 AM [facility] Non-Squamous Epithelial, Urine 2-5 Transitional epithelial cells. /LPF 10/17/2025 11:22 AM [facility] Bacteria, Urine Negative Negative /HPF 10/17/2025 11:22 AM [facility] Mucus, Urine Moderate None /HPF 10/17/2025 11:22 AM [facility] Urine Urine specimen obtained by clean catch procedure / Unknown Non-blood Collection / Unknown 10/17/2025 8:58 AM EST 10/17/2025 8:58 AM EST us Lyndsey Bell MD LAB URINE ORDERABLES Final Resul t [facility] [address] [place] [address], * (ABNORMAL) Lipid panel with reflex to direct LDL (10/17/2025 8:58 AM EST) Cholesterol 189 0 - 200 mg/dL 10/17/2025 12:36 PM [facility] Triglycerides 219(H) 0 - 150 mg/dL 10/17/2025 12:36 PM [facility] HDL 51 >=40 mg/dL 10/17/2025 12:36 PM [facility] LDL Calculated 94 0 - 100 mg/dL 10/17/2025 12:36 PM [facility] Comment:Estimated LDL Calcul ated using equation: Total cholesterol - HDL cholesterol - (Triglycerides/5) VLDL Cholesterol Carlton 43.8 mg/dL 10/17/2025 12:36 PM [facility] Non HDL Chol. (LDL+VLDL) 138 <145 mg/dL 10/17/2025 12:36 PM [facility] Chol/HDL Ratio 3.7 0.0 - 4.4 10/17/2025 12:36 PM [facility] Blood Venous blood specimen / Unknown Venipuncture / Unknown 10/17/2025 8:58 AM EST 10/17/2025 8:58 AM EST Lyndsey Bell MD LAB BLOOD ORDERABLES Final Resul t [facility] [address] [place] [address], * Culture urine (10/17/2025 8:58 AM EST) Culture, Urine No growth 10/18/2025 8:39 AM EST [facility] Urine Urine specimen obtained by clean catch procedure / Unknown Non-blood Collection / Unknown 10/17/2025 8:58 AM EST 10/17/2025 11:22 AM EST us Lyndsey Bell MD LAB MICROBIOLOGY - GENERAL ORDER LILIANA Final Result Performing Organization Address City/[facility]/ZIP Co de Phone Number [facility] [address] [place] [address], [place] [phone] * Hemoglobin A1c (10/17/2025 8:58 AM EST) Pathologist [facility] Hemoglobin A1C 5.3 <6.5 % LAB CHEMISTRY METHOD 10/17/2025 12:30 PM [facility] Mean Bld Glu Estim. 105 mg/dL LAB CHEMISTRY METHOD 10/17/2025 12:30 PM [facility] Blood Venous blood specimen / Unknown Venipuncture / Unknown 10/17/2025 8:58 AM EST 10/17/2025 8:58 AM EST us Lyndsey Bell MD LAB BLOOD ORDERABLES Final Resul t Performing Organization Address [facility]/ZIP Co de Phone Number [facility] [address] [place] [address], [place] [phone] * Comprehensive metabolic panel (10/17/2025 8:58 AM EST) [facility] Sodium 140 133 - 145 mmol/L 10/17/2025 12:36 PM [facility] Potassium 3.6 3.5 - 5.5 mmol/L 10/17/2025 12:36 PM [facility] Chloride 101 96 - 110 mmol/L 10/17/2025 12:36 PM [facility] CO2 29 21 - 32 mmol/L 10/17/2025 12:36 PM [facility] Anion Gap 10 3 - 11 10/17/2025 12:36 PM [facility] Glucose 99 70 - 100 mg/dL 10/17/2025 12:36 PM [facility] BUN 11 5 - 25 mg/dL 10/17/2025 12:36 PM [facility] Creatinine 0.78 0.50 - 1.10 mg/dL 10/17/2025 12:36 PM [facility] eGFR 84 >=60 mL/min/1. 73m2 10/17/2025 12:36 PM [facility] Comment:Calculation based on the Chronic Kidney Disease Epidemiology Collaboration (CKD-EPI) equation refit without adjustment for race. BUN/Creatinine Ratio 14.1 10/17/2025 12:36 PM [facility] Calcium 9.1 8.5 - 10.5 mg/dL 10/17/2025 12:36 PM [facility] AST (SGOT) 18 10 - 42 unit/L 10/17/2025 12:36 PM [facility] ALT (SGPT) 19 10 - 60 unit/L 10/17/2025 12:36 PM [facility] Alkaline Phosphatase 121 42 - 121 unit/L 10/17/2025 12:36 PM [facility] Total Protein 7.4 6.0 - 8.0 g/dL 10/17/2025 12:36 PM [facility] Albumin 4.4 3.2 - 5.0 g/dL 10/17/2025 12:36 PM [facility] Total Bilirubin 0.5 0.0 - 1.4 mg/dL 10/17/2025 12:36 PM [facility] Blood Venous blood specimen / Unknown Venipuncture / Unknown 10/17/2025 8:58 AM EST 10/17/2025 8:58 AM EST us Lyndsey Bell MD LAB BLOOD ORDERABLES Final Resul t [facility] [address] [place] [address], [place] [phone] * External Xray Report (09/16/2025) Only the most recent of2 resultswithin the time period is included. Anatomical Region Laterality Modality Radiographic Taylor ging us Provider [facility] IMG XR PROCEDURES Final Result * External Colonoscopy Report (05/01/2024 9:16 AM EDT) Anatomical Region Laterality Modality Endoscopy us Historical Provider GI~PROCEDURE ORDERABLES F inal Result * DXA BONE DENSITY STUDY 1+ [...] None. Impression: Normal by WHO criteria. [facility] Department of Internal Medicine recommends using [...] alternative screening schedule based on carmela Berumen., [facility] December 02, 2011 for patients with [...] None. Impression: Normal by WHO criteria. [facility] Department of Internal Medicine recommendsusing National [...] alternative screening schedule based on carmela Berumen., [facility]2011 for patients with osteopenia (based on hip BMD T-score) is as follows: * advanced osteopenia (T scores -2.00 to -2.49), BMD testing every year * moderate osteopenia (T scores -1.50 to -1.99), BMD testing every 5years mild osteopenia or normal BMD (T scores -1.50 and higher), BMD testingevery 15 years Sebastien Arciniega MD IMG DXA PROCEDURES Ade l Result from Last 3 Months or Most Recently Relevant to Health Maintenance Insurance MEDICARE MEDICAID [place] [employer] Care Teams Automation Operator Relationship Specialty Start Date End Date Lyndsey Bell MD [address] [place] [address] PCP - General Internal Medicine 01/24/25
--- OUTSIDE RECORDS SUMMARY | 2025-11-13 07:48 | XMS_ITS | Encounter Summary ---
Author Organization [facility] Address [address] [place] [address] Care Team Providers Care Project Controls Scheduler Name Role Phone Lyndsey Bell MD Primary Care Provider [phone] Encounter Details Date Type Department Care Team ([facility] st Contact Info) Description 10/21/2025 Results Follow-Up Adult Medicine [address] [phone] Lyndsey Bell MD [address] [place] [address] Social History Tobacco Use Types Packs/Day Years [...] for your loved ones. For example, child advocate or elderly care for an older adult? [...] Office Visit Gastroenterology - [address] [phone] Ashwin Vincent DO [address] [facility] [address] [place] [address] 02/18/2026 10:00 AM EDT Office Visit Adult Medicine [facility] [address] [place] [address] Lyndsey Bell MD [address] [place] [address] documented as of this encounter Visit Diagnoses Not on filedocumented in this encounter Additional Health Concerns Assessment Noted Time PHQ-9 Depression Total Score: 2 10/17/20 8:16 AM EST A fall risk assessment has been complete d for the patient 10/17/2025 8:11 AM EST documented as of this encounter Care Teams Project Controls Scheduler Relationship Specialty Start Date End Date Lyndsey Bell MD [address] [place] [address] PCP - General Internal Medicine 01/24/25 documented as of this encounter
[2025-11-13 08:05] LABS: Strep A Nucleic Acid Negative (Negative)
[2025-11-13 08:54] LABS: Resp Syncy Virus RNA Qual PCR NEGATIVE (Negative); SARS COV2 PCR INHOUSE NEGATIVE (Negative)
[2025-11-13 09:24] VITALS: BP 161/81; PULSE 72; RESP 20; TEMP 36.4; O2SAT 98
== END 2025-11-13 09:25 | disposition home or self-care (01) ==
PROVIDERS: Physician Assistant Medical; Emergency Provider Emergency Medicine Emergency Medical Services; PCP Internal Medicine
DX: B34.9 Viral infection, unspecified (principal); I10 Essential (primary) hypertension; Z03.818 Encounter for observation for suspected exposure to other biological agents ruled out; Z79.899 Other long term (current) drug therapy
CPT/HCPCS: 36415; 80053; 85025; 87637; 87651; 99283; 99284